=== PATIENT | female | born 1960 | race Caucasian/White ===

== ENCOUNTER → 2019-12-21 13:34 | Outpatient (BNVA) | payer MEDICAID, SELFPAY | PROVIDERS: PCP Internal Medicine; Referring Provider Internal Medicine; Visit Provider Physician Assistant | DX: E66.9 Obesity, unspecified (principal); Z98.84 Bariatric surgery status | CPT/HCPCS: 99212 ==

== ENCOUNTER 2019-12-30 10:05 | Outpatient (REF) | payer MEDICAID, SELFPAY ==
--- NOTE | 2019-12-30 10:11 | MM_ITS ---
EXAMINATION: MM SCREENING DIGITAL BREAST TOMOSYNTHESIS, BILATERAL CLINICAL INFORMATION: Screening. Asymptomatic. The lifetime risk of breast cancer based on the Tyrer-Cuzick Model is 5.3%. COMPARISON: Mammography: November 29, 2018 and studies dating back to January 01, 2011 TECHNIQUE: Digital breast tomosynthesis is performed in both the craniocaudal and mediolateral oblique views along with computer-aided detection (CAD). Synthesized 2D images are generated from the tomosynthesis. FINDINGS: There are scattered areas of fibroglandular density (ACR BI-RADS breast composition Category b). There are no significant masses, abnormal calcifications, or other abnormalities. MM/MM tomosynthesis screening BI IMPRESSION: There are no significant changes from prior study. ASSESSMENT: BI-RADS 1: Negative RECOMMENDATION: Routine annual mammography screening. This patient's information was entered into a reminder system with a target due date for their next mammogram.
== END 2019-12-30 10:06 | disposition home or self-care (01) ==
LOC: HO.MAMMO 10:05
PROVIDERS: Visit Provider Internal Medicine
DX: Z12.31 Encounter for screening mammogram for malignant neoplasm of breast (principal)
CPT/HCPCS: 77063; 77067

== ENCOUNTER → 2020-01-04 11:08 | Outpatient (BNVA) | payer MEDICAID, SELFPAY | PROVIDERS: PCP Internal Medicine; Visit Provider Physician Assistant | DX: E66.9 Obesity, unspecified (principal); Z68.35 Body mass index [BMI] 35.0-35.9, adult; Z98.84 Bariatric surgery status | CPT/HCPCS: 99212 ==

== ENCOUNTER → 2020-02-08 08:29 | Outpatient (BNVA) | payer MEDICAID, SELFPAY | PROVIDERS: PCP Internal Medicine; Visit Provider Physician Assistant | DX: Z76.89 Persons encountering health services in other specified circumstances (principal) ==

== ENCOUNTER → 2020-02-23 09:28 | Outpatient (BNVA) | payer MEDICAID, SELFPAY | PROVIDERS: PCP Internal Medicine; Visit Provider Physician Assistant | DX: Z76.89 Persons encountering health services in other specified circumstances (principal) ==

== ENCOUNTER → 2020-02-27 13:04 | Outpatient (BNVA) | payer MEDICAID, SELFPAY | PROVIDERS: PCP Internal Medicine; Visit Provider Physician Assistant | DX: Z76.89 Persons encountering health services in other specified circumstances (principal) ==

== ENCOUNTER 2020-03-01 09:42 | Outpatient (REF) | payer MEDICAID, SELFPAY | END 2020-03-01 09:43 | disposition home or self-care (01) | LOC: HO.LAB 09:42 | PROVIDERS: PCP Internal Medicine; Visit Provider Internal Medicine | DX: Z20.828 Contact with and (suspected) exposure to other viral communicable diseases (principal) | CPT/HCPCS: C9803; U0003 ==

== ENCOUNTER → 2020-03-16 08:22 | Outpatient (BNVA) | payer MEDICAID, SELFPAY | PROVIDERS: PCP Internal Medicine; Visit Provider Dietitian, Registered | DX: Z76.89 Persons encountering health services in other specified circumstances (principal) ==

== ENCOUNTER → 2020-03-29 10:30 | Outpatient (BNVA) | payer MEDICAID, SELFPAY | PROVIDERS: PCP Internal Medicine; Visit Provider Physician Assistant ==

== ENCOUNTER → 2020-03-30 08:49 | Outpatient (BNVA) | payer MEDICAID, SELFPAY | PROVIDERS: PCP Internal Medicine; Visit Provider Physician Assistant ==

== ENCOUNTER 2020-04-30 13:40 | Emergency (ER) | payer MEDICAID, SELFPAY ==
[2020-04-30 13:53] VITALS: BP 153/63; PULSE 71; RESP 20; TEMP 37; O2SAT 98; BMI 35.4
[2020-04-30 19:47] VITALS: BP 151/60; PULSE 83; RESP 16; TEMP 37.1; O2SAT 99
[2020-04-30 20:00] LABS: MANUAL DIFF FLAG NO
[2020-04-30 20:04] LABS: Basophils Percent Auto 0.3 % (0-2); Eosinophils Percent Auto 0.3 % (0-4); Hematocrit 42.1 % (37-47); Hemoglobin 14.4 g/dl (12.0-16.0); Imm Gran Abs Auto 0.02 X10*3/uL (0.00-0.03); Imm Gran Pct Auto 0.2 % (0.0-0.4); Lymphocytes Absolute Auto 3.4 X10*3/uL (1.2-4.9); Lymphocytes Percent Auto 34.2 % (20-40); Mean Corpuscular HGB Conc 34.2 g/dl (31.0-35.0); Mean Corpuscular Hemoglobin 30.7 pg (27.0-33.0); Mean Corpuscular Volume 89.8 fL (80-98); Mean Platelet Volume 11.7 fL (9.4-12.3); Monocytes Absolute Auto 0.7 X10*3/uL (0.1-1.2); Monocytes Percent Auto 6.5 % (2-11); Neutrophils Absolute Auto 5.8 X10*3/uL (2.0-8.3); Neutrophils Percent Auto 58.5 % (45-73); Platelet Count 270 X10*3/uL (160-400); Red Blood Count 4.69 X10*6/uL (4.20-5.50); White Blood Count 9.9 X10*3/uL (4.8-10.8)
[2020-04-30 20:27] LABS: Anion Gap 15 (12-20); Blood Urea Nitrogen 12 mg/dL (9-16); Calcium 9.5 mg/dL (8.4-10.2); Carbon Dioxide 27 mmol/L (22-29); Chloride 105 mmol/L (96-108); Creatinine Clr Calc Pharmacy 83.1; Estimated Glomerular Filt Rate > 60; Glucose Random 139 mg/dL (60-115); Potassium 4.7 mmol/L (3.3-5.1); Sodium 142 mmol/L (135-145)
[2020-04-30 21:34] VITALS: BP 136/60; PULSE 76; RESP 18; TEMP 36.8; O2SAT 97
--- NOTE | 2020-04-30 21:37 | ED.GENADULT ---
HPI - General Adult General Chief complaint: General Medical Stated complaint: can hear heart beating in left ear Source: patient Mode of arrival: ambulatory Limitations: language barrier History of Present Illness HPI narrative: 60-year-old female with past medical history of diabetes, hypertension, hyperlipidemia, obesity, hypothyroidism, status post gastric sleeve presents with complaint of hearing her heartbeat inside of her ear after walking up the stairs. She does report bilateral ear pain and itching for the past few days. She does not report any other abnormalities to her hearing, denies fevers, chills, lightheadedness, dizziness, loss of balance, chest pain or pressure, palpitations, shortness breath, abdominal pain, abdominal distention, dysuria, hematuria, and edema. Onset (ago): day(s) Location: head Radiation: non-radiation Severity: mild Pain Consistency: intermittent and now resolved Exacerbating factors: other (Exertion) Associated symptoms: denies other symptoms Treatments prior to arrival: none Related Data Home Medications Medication Instructions Recorded Confirmed cetirizine 10 mg capsule 10 mg PO DAILY 12/21/19 03/30/20 ferrous fumarate 324 mg (106 mg 324 mg PO DAILY 12/21/19 03/30/20 iron) tablet fluoxetine 20 mg capsule 20 mg PO DAILY 12/21/19 03/30/20 insulin glargine 100 unit/mL (3 20 unit SUBCUT QAM 12/21/19 03/30/20 mL) subcutaneous pen levothyroxine 25 mcg tablet 25 mcg PO DAILY 12/21/19 03/30/20 metformin 1,000 mg tablet 1,000 mg PO BID 12/21/19 03/30/20 metoprolol succinate 50 mg 50 mg PO DAILY 12/21/19 03/30/20 tablet,extended release 24 hr pantoprazole 40 mg tablet,delayed 40 mg PO DAILY 12/21/19 03/30/20 release tramadol 50 mg tablet 50 mg PO BID PRN 12/21/19 03/30/20 vitamin A palmitate 10,000 unit 10,000 unit PO DAILY 12/21/19 03/30/20 tablet Previous Rx's Medication Instructions Recorded clotrimazole 1 % topical cream 1 applic TOPICAL BID #28.4 g 01/04/20 clotrimazole 1 % topical cream 1 appl TOPICAL BID #28.4 g 02/23/20 atorvastatin 40 mg tablet 40 mg PO DAILY #30 tab 01/19/21 amoxicillin-pot clavulanate 1 tab PO Q12H 10 Days #20 tab 04/30/20 [Augmentin] Allergies Allergy/AdvReac Type Severity Reaction Status Date / Time glipizide [GLIPIZIDE] Allergy Unknown HIVES Verified 04/30/20 14:05 lisinopril Allergy Unknown hives Verified 04/30/20 14:05 Review of Systems Review of Systems: Constitutional: No Fever, No Chills ENT/Mouth: Positive Ear Pain, No Hoarseness, No sore throat Eyes: No Eye Pain, No Swelling, No Redness, No Foreign Body Cardiovascular: No Chest Pain, No SOB Respiratory: No Cough, No Dyspnea Gastrointestinal: No Nausea, No Vomiting, No Diarrhea, No abdominal Pain Genitourinary: No Dysuria, No Hematuria Musculoskeletal: No joint pain, No Myalgias, No Joint Swelling Skin: No Skin lacerations, No rash Neuro: No Weakness, No Numbness, No Paresthesias, No Loss of Consciousness, No Dizziness, No Headache Psych: No Anxiety/Panic, No Depression Heme/Lymph: no easy bruising, no Lymphadenopathy Endocrine: No Polyuria, No Polydipsia Yes all other systems are reviewed and are negative PMFSH Past Medical History Attestation statement: The following information was validated with the patient. Source: old records reviewed Medical History Atrial fib/flutter, transient Depression GERD (gastroesophageal reflux disease) Hyperlipidemia Hypertension Obesity Panniculitis Tongue disorder Tubal ligation evaluation Type II dens fracture of second cervical vertebra Surgical History History of carpal tunnel surgery Previous section S/P laparoscopic sleeve gastrectomy Family History Family History Mother No problems noted. Father No problems noted. Social History Social History Alcohol intake: never Smoking Status: Never smoker Smoked in Last 30 Days: No Use of substances other than those prescribed or required for medical reasons: No Advance Directives: No Advance Directives Information Provided: Yes Physical Exam Vital Signs: Vital Signs: Last Vital Signs Temp 98.3 F 04/30/20 21:34 Pulse 76 04/30/20 21:34 Resp 18 04/30/20 21:34 BP 136/60 04/30/20 21:34 Pulse Ox 97 04/30/20 21:34 Body Mass Index 35.4 Course Course Course Narrative: 60-year-old female with past medical history of AFib, hyperlipidemia, hypertension, status post gastric sleeve, presents with a strange sound her ear after walking stairs and bilateral ear itching and pain. Tympanic membranes bilaterally are erythematous, effusion to the right, no perforation, cone of light and a bow visualized. No mastoid tenderness, Centor scale 0. Plan of care is to treat for otitis media. Patient does not have any known allergies. director of research center utilized for all cores. Google translate utilized for discharge instructions. Patient verbalized understanding of and agrees to plan of care discharge home. Medical Decision Making Differential Diagnosis Differential Diagnosis: Otitis media, otitis externa, eustachian tube dysfunction Medical Records Medical records reviewed: Yes I reviewed the patient's medical records. Lab Data Lab results reviewed: Yes I reviewed the patient's lab results. Result diagrams: 04/30/20 19:53 04/30/20 19:53 Labs: Lab Results 04/30/20 04/30/20 Range/Units 19:53 19:53 WBC 9.9 (4.8-10.8) X10*3/uL RBC 4.69 (4.20-5.50) X10*6/uL Hgb 14.4 (12.0-16.0) g/dl Hct 42.1 (37-47) % MCV 89.8 (80-98) fL MCH 30.7 (27.0-33.0) pg MCHC 34.2 (31.0-35.0) g/dl RDW 13.0 (11.0-16.0) % Plt Count 270 (160-400) X10*3/uL MPV 11.7 (9.4-12.3) fL Immature Gran % (Auto) 0.2 (0.0-0.4) % Neut % (Auto) 58.5 (45-73) % Lymph % (Auto) 34.2 (20-40) % [place] % (Auto) 6.5 (2-11) % Eos % (Auto) 0.3 (0-4) % Baso % (Auto) 0.3 (0-2) % Lymph # (Auto) 3.4 (1.2-4.9) X10*3/uL [place] # (Auto) 0.7 (0.1-1.2) X10*3/uL Eos # (Auto) 0.0 (0.0-0.4) X10*3/uL Baso # (Auto) 0.0 (0.0-0.2) X10*3/uL Abs Immat Gran (auto) 0.02 (0.00-0.03) X10*3/uL Absolute Neuts (auto) 5.8 (2.0-8.3) X10*3/uL Absolute Nucleated RBC 0.000 (0.0-0.012) X10*3/uL Nucleated RBC % (auto) 0.0 (0.0-0.2) /100WBC Sodium 142 (135-145) mmol/L Potassium 4.7 (3.3-5.1) mmol/L Chloride 105 (96-108) mmol/L Carbon Dioxide 27 (22-29) mmol/L Anion Gap 15 (12-20) BUN 12 (9-16) mg/dL Creatinine 0.75 (0.5-1.4) mg/dL Estim Creat Clear Calc 83.1 Estimated GFR > 60 Random Glucose 139 H (60-115) mg/dL Calcium 9.5 (8.4-10.2) mg/dL Discharge Plan Discharge Clinical Impression: Otitis media Qualifiers: Otitis media type: suppurative Chronicity: acute Laterality: bilateral Recurrence: non-recurrent Spontaneous tympanic membrane rupture: without spontaneous rupture Qualified Code(s): H66.003 - Acute suppurative otitis media without spontaneous rupture of ear drum, bilateral Patient Disposition: Home, Self-Care Instructions: Ear Infection (ED) Additional Instructions: Te evaluaron para detectar sonidos anormales en el canal auditivo. La inspecci?n indica otitis media, no infecci?n del o?do interno. Por favor tome Augmentin 875 mg dos veces al d?a angel 10 d?as seg?n las instrucciones. Se le evaluaron para detectar s?ntomas consistentes con la exposici?n positiva a COVID-19 o COVID-19. Por favor, mantenga el aislamiento social seg?n las directrices estatales y federales. Es bagley responsabilidad mantener estas directrices. Los resultados de las pruebas est?n pendientes. Le llamaremos con los resultados. Usted debe tratarse a s? mismo chely si fuera positivo hasta que los resultados de la prueba vuelvan. Jahaira por elegir quita departamento de emergencias para bagley evaluaci?n. Por favor, juli un seguimiento con el m?dico de atenci?n primaria seg?n sea necesario. Regrese al servicio de emergencias para cualquier s?ntoma nuevo, preocupante o que empeore. You were evaluated for abnormal sounds in the ear canal. Inspection indicates otitis media, an inner ear infection. Please take Augmentin 875 mg twice a day for 10 days as directed. You were evaluated for symptoms consistent with COVID-19 and or COVID-19 positive exposure. Please maintain social isolation per State and Federal guidelines. Is your responsibility to maintain these guidelines. Your test results are pending. We will call you with the results. You must treat yourself as if you are positive until your test results come back. Thank you for choosing this emergency department for evaluation. Please follow-up with primary care physician as needed. Return to the emergency department for any new, concerning, or worsening symptoms. Prescriptions: New amoxicillin-pot clavulanate [Augmentin] 875-125 mg tablet 1 tab PO Q12H 10 Days Qty: 20 RF: 0 No Action atorvastatin 40 mg tablet 40 mg PO DAILY Qty: 30 RF: 5 metoprolol succinate [Toprol XL] 50 mg tablet extended release 24 hr 50 mg PO DAILY RF: 0 tramadol 50 mg tablet 50 mg PO BID PRNRF: 0 Zyrtec 10 mg capsule 10 mg PO DAILY RF: 0 Lantus Solostar U-100 Insulin 100 unit/mL (3 mL) insulin pen 20 unit subcut QAM RF: 0 fluoxetine 20 mg capsule 20 mg PO DAILY RF: 0 pantoprazole 40 mg tablet,delayed release (DR/EC) 40 mg PO DAILY RF: 0 metformin 1,000 mg tablet 1,000 mg PO BID RF: 0 ferrous fumarate [Ferrocite] 324 mg (106 mg iron) tablet 324 mg PO DAILY RF: 0 vitamin A palmitate 10,000 unit tablet 10,000 unit PO DAILY RF: 0 levothyroxine 25 mcg tablet 25 mcg PO DAILY RF: 0 clotrimazole 1 % cream 1 applic topical BID Qty: 28.4 RF: 6 clotrimazole 1 % cream 1 appl topical BID Qty: 28.4 RF: 6
[2020-04-30] MEDS: Amoxicillin/Potassium Clav 875 MG TABLET PO (22:48)
--- NOTE | 2020-04-30 22:48 | PC.NURSE ---
covid swab performed, pt medicated per order
[2020-04-30 23:07] LABS: COVID-19 Test Negative (Negative); IDNOW Serial# 9DD0AD1C
== END 2020-04-30 23:21 | disposition home or self-care (01) ==
PROVIDERS: Nurse Practitioner Family; Emergency Provider Emergency Medicine; PCP Internal Medicine
DX: H66.003 Acute suppurative otitis media without spontaneous rupture of ear drum, bilateral (principal); Z20.822 Contact with and (suspected) exposure to COVID-19; I10 Essential (primary) hypertension; E11.9 Type 2 diabetes mellitus without complications; I48.91 Unspecified atrial fibrillation; E78.5 Hyperlipidemia, unspecified; Z98.84 Bariatric surgery status; Z79.4 Long term (current) use of insulin; Z79.899 Other long term (current) drug therapy
CPT/HCPCS: 36415; 80048; 85025; 87635; 99283; 99284

== ENCOUNTER → 2020-05-24 09:28 | Outpatient (BNVA) | payer MEDICAID, SELFPAY | PROVIDERS: PCP Internal Medicine; Visit Provider Physician Assistant ==

== ENCOUNTER → 2020-05-25 08:13 | Outpatient (BNVA) | payer MEDICAID, SELFPAY | PROVIDERS: PCP Internal Medicine; Visit Provider Physician Assistant ==

== ENCOUNTER → 2020-07-13 15:30 | Outpatient (BNVA) | payer MEDICAID, SELFPAY | PROVIDERS: PCP Internal Medicine; Referring Provider Internal Medicine; Visit Provider Physician Assistant | DX: E66.9 Obesity, unspecified (principal); Z68.35 Body mass index [BMI] 35.0-35.9, adult; Z98.84 Bariatric surgery status | CPT/HCPCS: 99212 ==

== ENCOUNTER 2020-08-28 13:41 | Outpatient (REF) | payer MEDICAID, SELFPAY | END 2020-08-28 13:42 | disposition home or self-care (01) | LOC: HO.LAB 13:41 | PROVIDERS: PCP Internal Medicine; Visit Provider Internal Medicine | DX: Z20.822 Contact with and (suspected) exposure to COVID-19 (principal) | CPT/HCPCS: C9803; U0003; U0005 ==

== ENCOUNTER → 2020-09-28 09:26 | Outpatient (BNVA) | payer MEDICAID, SELFPAY | PROVIDERS: PCP Internal Medicine; Referring Provider Internal Medicine; Visit Provider Physician Assistant | DX: E66.9 Obesity, unspecified (principal); Z68.35 Body mass index [BMI] 35.0-35.9, adult; Z98.84 Bariatric surgery status | CPT/HCPCS: 99212 ==

== ENCOUNTER 2020-10-01 07:14 | Outpatient (REF) | payer MEDICAID, SELFPAY ==
[2020-10-01 08:19] LABS: Estimated Average Glucose 186 mg/dL; Hemoglobin A1c % 8.1 %
[2020-10-01 08:28] LABS: Alanine Aminotransferase 19 U/L (0-31); Albumin Level 3.9 g/dL (3.5-5.0); Alkaline Phosphatase 74 U/L (39-117); Anion Gap 10 (12-20); Aspartate Amino Transferase 18 U/L (5-31); Bilirubin Total 0.4 mg/dL (0.0-1.0); Blood Urea Nitrogen 11 mg/dL (9-16); C Reactive Protein 0.52 mg/dL (< or = 0.50); Calcium 9.2 mg/dL (8.4-10.2); Carbon Dioxide 30 mmol/L (22-29); Chloride 107 mmol/L (96-108); Cholesterol 129 mg/dL; Estimated Glomerular Filt Rate > 60; Glucose Random 167 mg/dL (60-115); HDL Cholesterol 40 mg/dL; Iron 69 mcg/dL (30-160); LDL Cholesterol Calculated 75 mg/dl; Percent Iron Saturation 22 % (15-50); Potassium 4.6 mmol/L (3.3-5.1); Sodium 142 mmol/L (135-145); Total Iron Binding Capacity 317 mcg/dL (228-428); Total Protein 6.6 g/dL (6.5-8.0); Triglycerides 74 mg/dL; Unsaturated Iron Binding 248 ug/dL
[2020-10-01 08:54] LABS: Ferritin 36 ng/mL (10-250); TSH reflex Free T4 1.52 uIU/mL (0.32-4.0)
[2020-10-01 09:05] LABS: Folate 16.1 ng/mL (> or = 4.0); Vitamin B12 240 pg/mL (200-900)
[2020-10-02 13:31] LABS: Calcium (PTHI) 9.3 mg/dL (8.6-10.4); PTHI 43 pg/mL (14-64)
[2020-10-02 17:12] LABS: Insulin Level Total 22.8 uIU/mL
[2020-10-04 17:27] LABS: Zinc 81 mcg/dL (60-130)
[2020-10-05 00:32] LABS: Vitamin A 39 mcg/dL (38-98)
[2020-10-05 06:22] LABS: Vitamin B1 9 nmol/L (8-30)
== END 2020-10-01 07:15 | disposition home or self-care (01) ==
LOC: HO.LAB 07:14
PROVIDERS: PCP Internal Medicine; Visit Provider Physician Assistant
DX: E66.9 Obesity, unspecified (principal); Z68.35 Body mass index [BMI] 35.0-35.9, adult; Z98.84 Bariatric surgery status
CPT/HCPCS: 36415; 80053; 80061; 82306; 82607; 82728; 82746; 83036; 83525; 83540; 83970; 84425; 84443; 84590; 84630; 86140

== ENCOUNTER → 2021-01-11 14:28 | Outpatient (BNVA) | payer MEDICAID, SELFPAY | PROVIDERS: PCP Internal Medicine; Visit Provider Physician Assistant Surgical | DX: E66.9 Obesity, unspecified (principal); Z68.35 Body mass index [BMI] 35.0-35.9, adult; Z98.84 Bariatric surgery status ==

== ENCOUNTER 2021-01-21 12:05 | Outpatient (REF) | payer MEDICAID, SELFPAY ==
--- NOTE | ~2021-01-21 | MM_ITS ---
EXAMINATION: MM SCREENING DIGITAL BREAST TOMOSYNTHESIS, BILATERAL CLINICAL INFORMATION: Screening. Asymptomatic. The lifetime risk of breast cancer based on the Tyrer-Cuzick Model is 5%. COMPARISON: Mammography: 12/30/2019, 11/29/2018, 10/17/2016 TECHNIQUE: Digital breast tomosynthesis is performed in both the craniocaudal and mediolateral oblique views along with computer-aided detection (CAD). Synthesized 2D images are generated from the tomosynthesis. Additional right MLO view is provided. FINDINGS: There are scattered areas of fibroglandular density (ACR BI-RADS breast composition Category b). There are no significant masses, abnormal calcifications, or other abnormalities. Low left axillary tail nodes stable. There are scattered bilateral fine punctate round and some vascular calcifications again seen central anterior breasts, more numerous on right. No significant changes. MM/MM tomosynthesis screening BI IMPRESSION: No significant changes from prior exams. ASSESSMENT: BI-RADS 2: Benign RECOMMENDATION: Routine annual mammography screening. This patient's information was entered into a reminder system with a target due date for their next mammogram.
== END 2021-01-21 12:06 | disposition home or self-care (01) ==
LOC: HO.MAMMO 12:05
PROVIDERS: PCP Internal Medicine; Visit Provider Internal Medicine
DX: Z12.31 Encounter for screening mammogram for malignant neoplasm of breast (principal)
CPT/HCPCS: 77063; 77067

== ENCOUNTER → 2021-01-25 08:04 | Outpatient (BNVA) | payer MEDICAID, SELFPAY | PROVIDERS: PCP Internal Medicine; Visit Provider Physician Assistant Surgical | DX: E66.9 Obesity, unspecified (principal); Z68.35 Body mass index [BMI] 35.0-35.9, adult; Z98.84 Bariatric surgery status ==

== ENCOUNTER 2021-01-29 10:07 | Outpatient (REF) | payer MEDICAID, SELFPAY ==
--- NOTE | 2021-01-29 13:38 | MHC.AU.HAS ---
Hearing Aid Evaluation Date of Visit: 01/29/21 Oil Well Directional Surveyor Used: Mongolian- In Person Historical Information: Description of Hearing: Mild to moderate high-frequency sensorineural hearing loss bilaterally. Current personal amplification information, if applicable: Patient notes that she had BTE style hearing aids ~7 years ago Summary: Patient [facility] at [facility] and hearing aids were recommended to help facilitate improved communication. Medical clearance for hearing aid use was provided by Dr. Jovon Yepez. Discussed hearing aid styles and technologies with the patient. She is interested in rechargeable GISELA style hearing aids. Hearing Aid Prescription: Based on the individual?s shared listening needs, communication environments, dexterity, desire for connectivity, and personal preferences, the following prescription for amplification has been made: Right ear: Spa Receptionist: Phonak Model: Audeo P70-R Battery Size: Rechargeable Color: P8- Black [place]co Artist: Size 0 M Type of Dome: Open Left ear: Left ear prescription to be same as Right Hearing Aid above: Spa Receptionist: Phonak Model: Audeo P70-R Battery Size: Rechargeable Color: P8- Black [place] Artist: Size 0 M Type of Dome: Open Plan of Care: Hearing Instrument Fitting to be scheduled when materials arrive. Hearing aids ordered. Primary Diagnosis: H90.3 Bilateral Sensorineural Hearing Loss Signature: Provider: Terry Salomon, LUCIA-A
== END 2021-01-29 10:08 | disposition home or self-care (01) ==
LOC: HO.HAP 10:07
PROVIDERS: Visit Provider Internal Medicine
DX: Z46.1 Encounter for fitting and adjustment of hearing aid (principal); H90.3 Sensorineural hearing loss, bilateral
CPT/HCPCS: 92591

== ENCOUNTER 2021-02-04 07:08 | Outpatient (REF) | payer MEDICAID, SELFPAY ==
[2021-02-04 07:55] LABS: Iron 75 mcg/dL (30-160); Percent Iron Saturation 22 % (15-50); Total Iron Binding Capacity 335 mcg/dL (228-428); Unsaturated Iron Binding 260 ug/dL
[2021-02-04 08:16] LABS: Vitamin D 25-OH Total 27.2 ng/mL (>30)
[2021-02-04 08:56] LABS: Vitamin B12 349 pg/mL (200-900)
[2021-02-06 22:56] LABS: Zinc 87 mcg/dL (60-130)
[2021-02-08 01:36] LABS: Vitamin A 39 mcg/dL (38-98)
[2021-02-08 06:05] LABS: Vitamin B1 7 nmol/L (8-30)
== END 2021-02-04 07:09 | disposition home or self-care (01) ==
LOC: HO.LAB 07:08
PROVIDERS: PCP Internal Medicine; Visit Provider Physician Assistant Surgical
DX: K91.2 Postsurgical malabsorption, not elsewhere classified (principal); E66.9 Obesity, unspecified; Z68.35 Body mass index [BMI] 35.0-35.9, adult; Z90.3 Acquired absence of stomach [part of]; Z98.84 Bariatric surgery status
CPT/HCPCS: 36415; 82306; 82607; 82746; 83540; 84425; 84590; 84630

== ENCOUNTER 2021-02-26 10:10 | Outpatient (REF) | payer MEDICAID, SELFPAY | END 2021-02-26 10:11 | disposition home or self-care (01) | LOC: HO.HAP 10:10 | PROVIDERS: Visit Provider Internal Medicine | DX: Z46.1 Encounter for fitting and adjustment of hearing aid (principal); H90.3 Sensorineural hearing loss, bilateral | CPT/HCPCS: V5011; V5020; V5160; V5261 ==

== ENCOUNTER → 2021-03-29 09:13 | Outpatient (REF) | payer MEDICAID, SELFPAY ==
--- NOTE | 2021-03-29 09:40 | CA_ITS ---
Transthoracic Echocardiogram Patient (Last, First, Middle): Eunice Romano D Gender: Female Date of : 1960 Age: 61 Procedure Date: 03/29/2021 Procedure Type: Transthoracic Echocardiogram Location: OP Height: 154.94 cm Weight: 88. kg BSA: 1.86 m2 Heart Rate: bpm BP: 135 / 80 mmHg Millstone Cleaner: TYLER Esquivel MD: Garrick Cisneros MD Symptoms: I35.0 - Nonrheumatic aortic (valve) stenosis Study Quality: Fair Conclusions: - Normal left ventricular size and systolic function. - Spectral Doppler is indicative of a pseudonormal filling pattern. E/E prime ratio is >15, consistent with elevated filling pressures. - Normal right ventricular cavity size and systolic function. - There is mild aortic valve stenosis. Findings Left Ventricle Normal left ventricular size and systolic function. There is mildly increased left ventricular wall thickness. The visually estimated ejection fraction is between 55-60%. There is no evidence of regional wall motion abnormalities. Abnormal diastolic function is noted. Spectral Doppler is indicative of a pseudonormal filling pattern. E/E prime ratio is >15, consistent with elevated filling pressures. Right Ventricle Normal right ventricular cavity size and systolic function. Atria Both atria are normal in size. Aortic Valve There is a normal trileaflet aortic valve. There is mild calcification of the aortic valve. There is mild aortic valve stenosis. There is no aortic valve regurgitation. Mitral Valve Normal mitral valve structure and function. There is mild mitral annular calcification. There is trace mitral valve regurgitation. There is no mitral valve stenosis. Pulmonic Valve Normal pulmonic valve structure and function. There is no pulmonic valve regurgitation. Tricuspid Valve Normal tricuspid valve structure and function. There is trace tricuspid valve regurgitation. Normal right atrial pressure. There is no evidence of pulmonary hypertension. Great Vessels All visible segments of the aorta are normal in size. The visualized portions of the pulmonary artery and branches are normal. Venous The inferior vena cava is normal in size and collapses greater than 50% with inspiration. Pericardium/Pleural There is no evidence of pericardial effusion. Prior Study Comparison Changes noted compared to prior study dated: 03/11/2019. Elevated filling pressures. Measurements 2D Linear Measurements IVSd: 1.07 0.6-0.9/0.6-1.0 cm LVIDd: 4.66 3.9-5.3/4.2-5.9 cm LVIDd Index: 2.51 2.4-3.2/2.2-3.1 cm/m2 LVIDs: 3.07 2.0-3.6 cm LVPWd: 1.05 0.7-1.1 cm Ao Root: 2.60 2.1-3.5 cm LA Diam: 3.80 2.7-3.8/3.0-4.0 cm LAIDs Index: 2.04 1.5-2.3 cm/m2 LV Mass: 218.89 67-162/88-224 g LV Mass Index: 117.68 43-95/49-115 g/m2 LVOT Diam: 2.00 3.0+(-)1.3 cm 2D Systolic Function EF 4C: 60.60 >55% EF 2C: 56.40 >55% EF BiP: 58.90 >55% Mitral Valve MV Pk E: 1.07 MV PK A: 0.99 MV Decel Time: 222.00 E/A: 1.10 E'Lateral: 6.74 E'Medial: 6.96 E/E' Med: 15.40 E/E' Lat: 15.90 PHT: 65.00 MVA PHT: 3.38 Decel [place]: 4.82 Aortic Valve AoV Pk Bean: 2.20 AoV Mn Bean: 1.47 AoV VTI: 0.48 AoV Pk Grad: 19.00 Aov Mn Grad: 10.00 BETTYE Cont.VTI: 1.84 LVOT LVOT Pk Bean: 1.26 LVOT Mn Bean: 0.88 LVOT VTI: 0.28 LVOT Pk Grad: 6.00 LVOT Mn Grad: 3.00 LVOT Diam: 2.00 LVOT Area: 3.14 Diastolic Function MV Pk E: 1.07 MV Pk A: 0.99 E/A: 1.10 E'Medial: 6.96 E/E' Med: 15.40 E' Laterial: 6.74 E/E' Lat: 15.90 Right Ventricle TAPSE (mm): 2.48 TVS' Bean: 13.90 Tricuspid Valve TR Pk Bean: 2.24 TR Pk Grad: 20.00 RA Press: 3.00 RVSP: 23.00 Great Vessels Aorta Ao Root-2D: 2.60 2.0-3.7 cm Ao Asc: 3.10 2.1-3.4 cm Ao Arch: 2.90 Updated in Other Vendor System with Status of Final Aron Valles MD electronically signed on 03/31/2021 7:49:30 PM with status of Final
== END ==
LOC: HO.CARD 09:13
PROVIDERS: PCP Internal Medicine; Visit Provider Internal Medicine
DX: I35.0 Nonrheumatic aortic (valve) stenosis (principal)
CPT/HCPCS: 93306

== ENCOUNTER → 2021-04-09 12:34 | Outpatient (BNVA) | payer MEDICAID, SELFPAY | PROVIDERS: PCP Internal Medicine; Referring Provider Internal Medicine; Visit Provider Internal Medicine | DX: I48.0 Paroxysmal atrial fibrillation (principal); I35.0 Nonrheumatic aortic (valve) stenosis; I10 Essential (primary) hypertension; E66.01 Morbid (severe) obesity due to excess calories; E78.5 Hyperlipidemia, unspecified; E11.8 Type 2 diabetes mellitus with unspecified complications; Z68.37 Body mass index [BMI] 37.0-37.9, adult | CPT/HCPCS: 93005; 99212 ==

== ENCOUNTER 2021-04-26 08:48 | Outpatient (REF) | payer MEDICAID, SELFPAY ==
[2021-04-26 11:12] LABS: Iron 120 mcg/dL (30-160); Percent Iron Saturation 33 % (15-50); Total Iron Binding Capacity 364 mcg/dL (228-428); Unsaturated Iron Binding 244 ug/dL
[2021-04-26 11:34] LABS: Vitamin D 25-OH Total 35.4 ng/mL (>30)
[2021-04-26 11:41] LABS: Folate 10.7 ng/mL (> or = 4.0); Vitamin B12 487 pg/mL (200-900)
[2021-05-01 03:06] LABS: Zinc 67 mcg/dL (60-130)
[2021-05-02 13:26] LABS: Vitamin B1 138 nmol/L (8-30)
[2021-05-03 01:31] LABS: Vitamin A 45 mcg/dL (38-98)
== END 2021-04-26 08:49 | disposition home or self-care (01) ==
LOC: HO.LAB 08:48
PROVIDERS: PCP Internal Medicine; Referring Provider Internal Medicine; Visit Provider Physician Assistant Surgical
DX: E66.9 Obesity, unspecified (principal); Z68.37 Body mass index [BMI] 37.0-37.9, adult; Z98.84 Bariatric surgery status
CPT/HCPCS: 36415; 82306; 82607; 82746; 83540; 84425; 84590; 84630; 99212

== ENCOUNTER → 2021-07-02 09:31 | Outpatient (BNVA) | payer MEDICAID, SELFPAY | PROVIDERS: PCP Internal Medicine; Referring Provider Internal Medicine; Visit Provider Physician Assistant Surgical | DX: E66.9 Obesity, unspecified (principal); Z98.84 Bariatric surgery status; Z68.37 Body mass index [BMI] 37.0-37.9, adult | CPT/HCPCS: 99212 ==

== ENCOUNTER 2021-09-09 04:12 | Emergency (ER) | payer MEDICAID, SELFPAY ==
[2021-09-09 04:16] VITALS: BP 111/66; PULSE 60; RESP 18; TEMP 36.5; O2SAT 98; BMI 37.8
--- NOTE | 2021-09-09 07:23 | ED.GENADULT ---
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 The patient states she went to bed around 21:00 hours was having difficulty sleeping. She states she rolled over and blood 08:00 hours and had a sudden onset of dizziness. She describes this as a room spinning sensation. She has associated nausea. She states that lasted approximately 2-3 minutes. The patient then took her blood pressure and it was high. She also states she developed a headache which she states is located diffusely throughout her head, was a constant, throbbing sensation and was mild in intensity. The headache is since resolved and the dizziness is also resolved. Patient states she had an episode of feeling very cold but she attributes this to the air-conditioning that was on. She denied fever, chills, rhinorrhea, sore throat, cough, chest pain, shortness of breath, abdominal pain, frequency, urgency, dysuria, change in her stool. She states that she has had similar episodes of vertigo in the past but has never been treated for it. States she has been seen in the emergency department for dizziness and past as well. MD complaint: Headache Onset (ago): hour(s) (4) Location: head Radiation: non-radiation Severity: mild Severity scale (1-10): 2 Quality: other (Throbbing) Pain Consistency: constant Relieving factors: other (Resolved without treatment) Exacerbating factors: none Associated symptoms: other (Vertigo, hypertension) Treatments prior to arrival: none Related Data Home Medications Medication Instructions Recorded Confirmed cetirizine 10 mg capsule (Zyrtec) 10 mg PO DAILY 12/21/19 07/02/21 fluoxetine 20 mg capsule 20 mg PO DAILY 12/21/19 07/02/21 insulin glargine 100 unit/mL (3 20 unit subcut QAM 12/21/19 07/02/21 mL) subcutaneous pen (Lantus Solostar U-100 Insulin) metformin 1,000 mg tablet 1,000 mg PO BID 12/21/19 07/02/21 metoprolol succinate 50 mg 50 mg PO DAILY 12/21/19 07/02/21 tablet,extended release 24 hr (Toprol XL) tramadol 50 mg tablet 50 mg PO BID PRN 12/21/19 07/02/21 losartan 50 mg tablet 50 mg PO QAM 04/09/21 07/02/21 Previous Rx's Medication Instructions Recorded atorvastatin 40 mg tablet 40 mg PO DAILY 90 days #90 tabs 09/17/20 cyanocobalamin (vitamin B-12) 500 500 mcg PO DAILY #30 tabs 05/24/21 mcg tablet levothyroxine 25 mcg tablet 25 mcg PO DAILY #30 tabs 05/24/21 clotrimazole 1 % topical cream 1 appl topical BID #28.4 grams 07/02/21 ferrous fumarate 324 mg (106 mg 324 mg PO DAILY #90 tabs 08/07/21 iron) tablet (Ferrocite) meclizine 25 mg tablet (Dramamine 25 mg PO TID PRN dizziness #20 tabs 09/09/21 Less Drowsy) Allergies Allergy/AdvReac Type Severity Reaction Status Date / Time glipizide [GLIPIZIDE] Allergy Unknown HIVES Verified 07/02/21 09:38 lisinopril Allergy Unknown hives Verified 07/02/21 09:38 Review of Systems Review of Systems: Yes all other systems are reviewed and are negative [facility] Past Medical History [facility] Narrative: Social history: She denies tobacco, alcohol and drug use. Medical History Atrial fib/flutter, transient Depression GERD (gastroesophageal reflux disease) Hyperlipidemia Hypertension Obesity Panniculitis Tongue disorder Tubal ligation evaluation Type II dens fracture of second cervical vertebra Surgical History History of carpal tunnel surgery Hx of oral surgery Previous section S/P laparoscopic sleeve gastrectomy Family History Family History Mother No problems noted. Father No problems noted. Social History Social History Alcohol intake: never Patient Tobacco Use Status: Former Tobacco user Advance Directives: No Advance Directives Information Provided: Yes Physical Exam ED Vital Signs: Vital Signs - 24 hr 09/09/21 04:16 Temperature 97.7 F Pulse Rate 60 Respiratory Rate 18 Blood Pressure 111/66 Pulse Oximetry 98 Oxygen Delivery Method Room Air BMI result Body Mass Index 37.8 Const General: cooperative and no acute distress Orientation/consciousness: oriented to person and oriented to place Limitations: no limitations HENMT Head: Yes normal to inspection, Yes normocephalic and Yes atraumatic Ears: external ears normal General nose exam: Normal external nose present Face and sinus: Yes normal facial exam Mouth: Normal oral and palatal mucosa present Throat: Yes posterior oropharynx normal Eyes General: appearance normal, both eyes and all related structures Pupils: Equal, round and reactive pupils present Neck Neck: Yes normal visual inspection, Yes no lymphadenopathy, Yes trachea midline and Yes supple Chest Chest palpation & inspection: normal inspection of the chest and normal palpation of entire chest wall Resp Effort & Inspection: normal respiratory effort and able to speak in complete sentences Auscultation: clear to auscultation bilaterally Cardio Rate: regular rate Rhythm: regular rhythm Heart sounds: S1 normal heart sound present, S2 normal heart sound present and no murmurs GI Inspection: Yes normal to inspection Palpation (GI): Soft to palpation, nontender and no guarding Auscultation: normal bowel sounds General: Yes no CVA tenderness Back/Spine/Pelvis Back: no CVA tenderness Skin General skin exam: no rashes or lesions noted Neuro General: oriented to person and oriented to place Cranial nerves: Yes CN's II-XII intact bilaterally and Yes Equal, round and reactive pupils present Cognition (Neuro): normal cognition Motor exam (neuro): 5/5 motor strength present throughout Coordination: [id number] test normal and tandem gait normal Extrem General: Yes normal to inspection Psych Appearance: grossly normal Speech and movement: Normal speech and movement present Affect: normal affect Attitude: cooperative Thought process: Normal thought process present Thought content: Normal thought content present Course Course Course Narrative: 61-year-old female who presents emergency department for evaluation of sudden onset of vertigo like symptoms at 04:00 hours which lasted minutes and have resolved. The patient did have elevated blood pressure readings at home but here in the emergency department blood pressure was normal. Patient also had a headache which was mild associated with vertigo which is also resolved without treatment. Patient has had similar episodes of vertigo in the past. On her examination her vital signs were normal including her blood pressure. She currently has no nystagmus and has no cerebellar signs. Patient's presentation is consistent with vertigo and I did discuss this with her. Patient was started on meclizine 25 mg 3 times a day as needed for dizziness. She was given printed and verbal instructions and discharged home. Discharge Plan Discharge Clinical Impression: Vertigo, Essential hypertension Patient Disposition: Home, Self-Care Instructions: Vertigo (ED) Additional Instructions: Your symptoms are consistent with vertigo caused by the balance mechanism in your inner ear. At this time I do not think that she had a stroke, heart attack or that your symptoms are related to your high blood pressure. Take meclizine 25 mg pills, 1 pill 3 times a day for the next 3 days for dizziness then as needed for dizziness. This medication will make you sleepy. Do not drive or work while taking this medication. Follow-up with your doctor in 2 days. Please return to the emergency department if your symptoms get worse or if you develop any symptoms that are concerning to you. Prescriptions: New meclizine [Dramamine Less Drowsy] 25 mg tablet 25 mg PO TID PRN (Reason: dizziness) Qty: 20 0RF No Action atorvastatin 40 mg tablet 40 mg PO DAILY 90 Days Qty: 90 3RF levothyroxine 25 mcg tablet 25 mcg PO DAILY Qty: 30 1RF cyanocobalamin (vitamin B-12) 500 mcg tablet 500 mcg PO DAILY Qty: 30 11RF ferrous fumarate [Ferrocite] 324 mg (106 mg iron) tablet 324 mg PO DAILY Qty: 90 3RF metoprolol succinate [Toprol XL] 50 mg tablet extended release 24 hr 50 mg PO DAILY tramadol 50 mg tablet 50 mg PO BID PRN Zyrtec 10 mg capsule 10 mg PO DAILY Lantus Solostar U-100 Insulin 100 unit/mL (3 mL) insulin pen 20 unit subcut QAM fluoxetine 20 mg capsule 20 mg PO DAILY metformin 1,000 mg tablet 1,000 mg PO BID clotrimazole 1 % cream 1 appl topical BID Qty: 28.4 6RF losartan 50 mg tablet 50 mg PO QAM
== END 2021-09-09 08:22 | disposition home or self-care (01) ==
PROVIDERS: Emergency Provider Emergency Medicine Emergency Medical Services
DX: R42 Dizziness and giddiness (principal); I10 Essential (primary) hypertension; R51.9 Headache, unspecified
CPT/HCPCS: 99283

== ENCOUNTER 2022-01-01 09:37 | Outpatient (REF) | payer MEDICAID, SELFPAY ==
[2022-01-01 10:47] LABS: MANUAL DIFF FLAG NO
[2022-01-01 11:47] LABS: Basophils Percent Auto 0.4 % (0-2); Eosinophils Absolute Auto 0.1 X10*3/uL (0.0-0.4); Eosinophils Percent Auto 0.8 % (0-4); Hematocrit 41.2 % (37.0-47.0); Hemoglobin 13.8 g/dl (12.0-16.0); Imm Gran Abs Auto 0.05 X10*3/uL (0.00-0.03); Imm Gran Pct Auto 0.5 % (0.0-0.4); Lymphocytes Absolute Auto 3.9 X10*3/uL (1.2-4.9); Lymphocytes Percent Auto 35.8 % (20-40); Mean Corpuscular HGB Conc 33.5 g/dl (31.0-35.0); Mean Corpuscular Volume 89.6 fL (80.0-98.0); Mean Platelet Volume 12.8 fL (9.4-12.3); Monocytes Absolute Auto 0.8 X10*3/uL (0.1-1.2); Monocytes Percent Auto 7.4 % (2-11); Neutrophils Percent Auto 55.1 % (45-73); Platelet Count 274 X10*3/uL (160-400); Red Cell Distribution Width 13.4 % (11.0-16.0); White Blood Count 10.8 X10*3/uL (4.8-10.8)
[2022-01-01 12:06] LABS: Estimated Average Glucose 217 mg/dL; Hemoglobin A1c % 9.2 %
[2022-01-01 12:08] LABS: Alanine Aminotransferase 34 U/L (0-31); Albumin Level 4.2 g/dL (3.5-5.0); Alkaline Phosphatase 77 U/L (39-117); Anion Gap 17 (12-20); Aspartate Amino Transferase 20 U/L (5-31); Bilirubin Total 0.6 mg/dL (0.0-1.0); Blood Urea Nitrogen 15 mg/dL (9-16); C Reactive Protein 0.78 mg/dL (< or = 0.50); Carbon Dioxide 28 mmol/L (22-29); Chloride 101 mmol/L (96-108); Cholesterol 143 mg/dL; Estimated Glomerular Filt Rate > 60; Glucose Random 137 mg/dL (60-115); HDL Cholesterol 44 mg/dL; Iron 100 mcg/dL (30-160); LDL Cholesterol Calculated 83 mg/dl; Percent Iron Saturation 30 % (15-50); Potassium 4.2 mmol/L (3.3-5.1); Sodium 142 mmol/L (135-145); Total Iron Binding Capacity 331 mcg/dL (228-428); Total Protein 7.1 g/dL (6.5-8.0); Triglycerides 81 mg/dL; Unsaturated Iron Binding 231 ug/dL
[2022-01-01 12:34] LABS: Ferritin 40 ng/mL (10-250); TSH reflex Free T4 2.18 uIU/mL (0.32-4.0); Vitamin D 25-OH Total 29.2 ng/mL (>30)
[2022-01-01 13:01] LABS: Folate 9.5 ng/mL (> or = 4.0); Vitamin B12 448 pg/mL (200-900)
[2022-01-01 13:09] LABS: Insulin 45 uU/mL (2-29)
[2022-01-02 14:27] LABS: Calcium (PTHI) 9.9 mg/dL (8.6-10.4); PTHI 42 pg/mL (16-77)
[2022-01-05 22:27] LABS: Zinc 77 mcg/dL (60-130)
[2022-01-06 14:01] LABS: Vitamin B1 11 nmol/L (8-30)
[2022-01-07 17:42] LABS: Vitamin A 41 mcg/dL (38-98)
== END 2022-01-01 09:38 | disposition home or self-care (01) ==
LOC: HO.LAB 09:37
PROVIDERS: PCP Internal Medicine; Referring Provider Internal Medicine; Visit Provider Physician Assistant Surgical
DX: E66.9 Obesity, unspecified (principal); Z71.3 Dietary counseling and surveillance; Z68.35 Body mass index [BMI] 35.0-35.9, adult; Z98.84 Bariatric surgery status; Z79.899 Other long term (current) drug therapy
CPT/HCPCS: 36415; 80053; 80061; 82306; 82607; 82728; 82746; 83036; 83525; 83540; 83970; 84425; 84443; 84590; 84630; 85025; 86140; 99212

== ENCOUNTER 2022-01-13 10:23 | Outpatient (REF) | payer MEDICAID, SELFPAY ==
--- NOTE | ~2022-01-13 | XR_ITS ---
EXAMINATION: XR SHOULDER, RIGHT CLINICAL INFORMATION: Pain right shoulder. COMPARISON: Right humerus radiographs 10/31/2013 TECHNIQUE: Right shoulder is imaged in 4 views. FINDINGS: No fracture or dislocation. There is minor spurring greater tuberosity. No visible rotator cuff calcifications. The acromioclavicular alignment is normal. Degenerative humeral joint appears normal. XR/XR shoulder RT min 2V IMPRESSION: -Minor spurring greater tuberosity. No visible rotator cuff calcifications.
== END 2022-01-13 10:24 | disposition home or self-care (01) ==
LOC: HO.XRAY 10:23
PROVIDERS: Absent Provider Internal Medicine; PCP Internal Medicine; Visit Provider Emergency Medicine
DX: M25.511 Pain in right shoulder (principal)
CPT/HCPCS: 73030

== ENCOUNTER 2022-01-20 08:54 | Outpatient (REF) | payer MEDICAID, SELFPAY | END 2022-01-20 08:55 | disposition home or self-care (01) | LOC: HO.MRI 08:54 | PROVIDERS: Visit Provider Emergency Medicine | DX: Z13.89 Encounter for screening for other disorder (principal) ==

== ENCOUNTER → 2022-07-14 10:37 | Outpatient (BNVA) | payer MEDICAID, SELFPAY | PROVIDERS: PCP Internal Medicine; Referring Provider Internal Medicine; Visit Provider Physician Assistant Surgical | DX: E66.9 Obesity, unspecified (principal); Z68.36 Body mass index [BMI] 36.0-36.9, adult; Z98.84 Bariatric surgery status | CPT/HCPCS: 99212 ==

== ENCOUNTER 2022-09-08 09:54 | Outpatient (REF) | payer MEDICAID, SELFPAY ==
--- NOTE | ~2022-09-08 | MM_ITS ---
EXAMINATION: MM SCREENING DIGITAL BREAST TOMOSYNTHESIS, BILATERAL CLINICAL INFORMATION: Screening. Asymptomatic. The lifetime risk of breast cancer based on the Tyrer-Cuzick Model is 5%. COMPARISON: Mammography: This study is compared to prior fracture mammograms dating back to 2017. TECHNIQUE: Digital breast tomosynthesis is performed in both the craniocaudal and mediolateral oblique views along with computer-aided detection (CAD). Synthesized 2D images are generated from the tomosynthesis. FINDINGS: There are scattered areas of fibroglandular density (ACR BI-RADS breast composition Category b). There are no significant masses, abnormal calcifications, or other abnormalities. IMPRESSION Y benign calcifications scattered in each breast.: No mammographic evidence of malignancy. ASSESSMENT: BI-RADS BI-RADS 2 - Benign Findings RECOMMENDATION: Routine annual mammography screening. 1 year F/U This patient's information was entered into a reminder system with a target due date for their next mammogram.
== END 2022-09-08 09:55 | disposition home or self-care (01) ==
LOC: HO.MAMMO 09:54
PROVIDERS: PCP Internal Medicine; Visit Provider Internal Medicine
DX: Z12.31 Encounter for screening mammogram for malignant neoplasm of breast (principal)
CPT/HCPCS: 77063; 77067

== ENCOUNTER → 2022-09-08 10:30 | Outpatient (BNV) | payer MEDICAID, SELFPAY | PROVIDERS: PCP Internal Medicine; Visit Provider Radiology Diagnostic Radiology | DX: Z12.31 Encounter for screening mammogram for malignant neoplasm of breast (principal) | CPT/HCPCS: 77063; 77067 ==

== ENCOUNTER 2022-12-03 10:33 | Outpatient (AMB) | payer MEDICAID, SELFPAY ==
--- NOTE | 2022-12-03 10:36 | A.OFFVIS_ITS ---
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 Haul Driver Required: Yes Short Haul Driver Name: office cmi Allergies glipizide [GLIPIZIDE] Allergy (Unknown, Verified 12/03/22 10:39) HIVES lisinopril Allergy (Unknown, Verified 12/03/22 10:39) hives Medication List - Last Reconciled 12/03/22 by CHRISTIANE Grimes atorvastatin 40 mg PO DAILY cetirizine (Zyrtec) 10 mg PO DAILY clotrimazole 1% 1 appl topical BID cyanocobalamin (vitamin B-12) 500 mcg PO DAILY dulaglutide (Trulicity) 0.75 mg subcut QWEEK ferrous fumarate (Ferrocite) 324 mg PO DAILY fluoxetine 20 mg PO DAILY insulin glargine (Lantus Solostar U-100 Insulin) 50 units subcut QAM losartan 50 mg PO QAM meclizine (Dramamine Less Drowsy) 25 mg PO TID PRN metformin 1,000 mg PO BID metoprolol succinate ER (Toprol XL) 50 mg PO DAILY tramadol 50 mg PO BID PRN HPI HPI Comments History of Present Illness Details The patient is a pleasant 62-year-old female who presents to the office today for a 5 year postoperative follow-up from her sleeve gastrectomy performed 10/29/2017. She was last seen in the office on 07/14/2022 with a weight of 201.4 lb and a BMI of 36.8. She states that her goal at that time was to lose more weight. Today, weight is 198 lb with a BMI of 36.2. She had Trulicity added to her medicine regimen. Reports her BS 75-100 vicky and highest is 115-125 Recommended meal plan from her last visit: 2 eggs w veg pure protein 1 scoop or pre made meal 7 forks/5 forks. exercise plan: [employer], treadmill/bike 4 x per week, 450 calories Any post op complications: none LIGIA: never DM: improved HTN: improved Hyperlipidemia: improved GERD:?0-5 scale ??0 = no symptoms ??1 = symptoms noticeable but not bothersome 2 =symptoms bothersome but not daily ? 3 = symptoms bothersome and daily 4 = symptoms affect daily activities 5 = symptoms are incapacitating, unable to do daily activities ? How bad is the heartburn: 0 ? Heartburn while lying down: 0 ? Heartburn when standing up: 0 ? Heartburn after meals: 0 ? Does heartburn change your diet: 0 ? Does heartburn wake you up from sleep: 0 ? Do you have difficulty swallowin ? Do you have pain with swallowin ? If you take medicine for your reflux, does this affect your daily life: 0 Satisfaction with present condition - satisfied or not satisfied: not satisfied, want to lose more weight PFSH Medical History Panniculitis Tubal ligation evaluation GERD (gastroesophageal reflux disease) Atrial fib/flutter, transient Obesity Hyperlipidemia Depression Hypertension Type II dens fracture of second cervical vertebra Tongue disorder Surgical History Hx of oral surgery History of carpal tunnel surgery Previous section S/P laparoscopic sleeve gastrectomy Family History Mother No problems noted. Father No problems noted. Social History Alcohol intake: never Patient Tobacco Use Status: Former Tobacco user Review of Systems Const All systems reviewed & are unremarkable except as noted in HPI and below Physical Exam Vital Signs: Last Vital Signs Temp 96.5 F L 12/03/22 10:42 Pulse 72 12/03/22 10:42 BP 145/66 H 12/03/22 10:42 Pulse Ox 96 12/03/22 10:42 Oxygen Delivery Method Room Air 12/03/22 10:42 BMI result Body Mass Index 36.2 Const General: cooperative and no acute distress Orientation/consciousness: patient oriented x3 Resp Effort & Inspection: normal respiratory effort Auscultation: clear to auscultation bilaterally Cardio Rate: regular rate Rhythm: regular rhythm GI Inspection: Yes normal to inspection and Yes incision (well healed) Palpation (GI): Soft to palpation and no masses Neuro General: patient oriented x3 Assessment & Plan Assessment & Plan (1) Obesity (BMI 30-39.9): Code(s): E66.9 - Obesity, unspecified Plan: check yearly labs follow BS closely and liekly will need decrease in meds. Continue exercise RTC 3 months Orders: Orders Lipid Panel Today E11.8 - Type 2 diabetes mellitus with unspecified compli cations, E66.9 - Obesity, unspecified, I10 - Essential (primary) hypertension, K91.2 - Postsurgical malabsorption, not elsewhere classified, Z90.3 - Acquired absence of stomach [part of] Complete Blood Count Auto Diff Today E11.8 - Type 2 diabetes mellitus with unspecified complications, E66.9 - Obesity, unspecified, I10 - Essential (primary) hypertension, K91.2 - Postsurgical malabsorption, not elsewhere classified, Z90.3 - Acquired absence of stomach [part of] Vitamin B12 and Folate Today E11.8 - Type 2 diabetes mellitus with unspecified complications, E66.9 - Obesity, unspecified, I10 - Essential (primary) hypertension, K91.2 - Postsurgical malabsorption, not elsewhere classified, Z90.3 - Acquired absence of stomach [part of] Vitamin B1 Today E11.8 - Type 2 diabetes mellitus with unspecified complications, E66.9 - Obesity, unspecified, I10 - Essential (primary) hypertension, K91.2 - Postsurgical malabsorption, not elsewhere classified, Z90.3 - Acquired absence of stomach [part of] Ferritin Today E11.8 - Type 2 diabetes mellitus with unspecified complications, E66.9 - Obesity, unspecified, I10 - Essential (primary) hypertension, K91.2 - Postsurgical malabsorption, not elsewhere classified, Z90.3 - Acquired absence of stomach [part of] PTHI Today E11.8 - Type 2 diabetes mellitus with unspecified complications, E66.9 - Obesity, unspecified, I10 - Essential (primary) hypertension, K91.2 - Postsurgical malabsorption, not elsewhere classified, Z90.3 - Acquired absence of stomach [part of] TSH reflex Free T4 Today E11.8 - Type 2 diabetes mellitus with unspecified complications, E66.9 - Obesity, unspecified, I10 - Essential (primary) hypertension, K91.2 - Postsurgical malabsorption, not elsewhere classified, Z90.3 - Acquired absence of stomach [part of] Hemoglobin A1c Today E11.8 - Type 2 diabetes mellitus with unspecified complications, E66.9 - Obesity, unspecified, I10 - Essential (primary) hypertension, K91.2 - Postsurgical malabsorption, not elsewhere classified, Z90.3 - Acquired absence of stomach [part of] Basic Metabolic Panel Today E11.8 - Type 2 diabetes mellitus with unspecified complications, E66.9 - Obesity, unspecified, I10 - Essential (primary) hypertension, K91.2 - Postsurgical malabsorption, not elsewhere classified, Z90.3 - Acquired absence of stomach [part of] Insulin Today E11.8 - Type 2 diabetes mellitus with unspecified complications, E66.9 - Obesity, unspecified, I10 - Essential (primary) hypertension, K91.2 - Postsurgical malabsorption, not elsewhere classified, Z90.3 - Acquired absence of stomach [part of] IRON PROFILE Today E11.8 - Type 2 diabetes mellitus with unspecified complications, E66.9 - Obesity, unspecified, I10 - Essential (primary) hypertension, K91.2 - Postsurgical malabsorption, not elsewhere classified, Z90.3 - Acquired absence of stomach [part of] Zinc Today E11.8 - Type 2 diabetes mellitus with unspecified complications, E66.9 - Obesity, unspecified, I10 - Essential (primary) hypertension, K91.2 - Postsurgical malabsorption, not elsewhere classified, Z90.3 - Acquired absence of stomach [part of] Vitamin A Today E11.8 - Type 2 diabetes mellitus with unspecified complications, E66.9 - Obesity, unspecified, I10 - Essential (primary) hypertension, K91.2 - Postsurgical malabsorption, not elsewhere classified, Z90.3 - Acquired absence of stomach [part of] C Reactive Protein Today E11.8 - Type 2 diabetes mellitus with unspecified complications, E66.9 - Obesity, unspecified, I10 - Essential (primary) hypertension, K91.2 - Postsurgical malabsorption, not elsewhere classified, Z90.3 - Acquired absence of stomach [part of] Vitamin D 25-OH Total Today E11.8 - Type 2 diabetes mellitus with unspecified complications, E66.9 - Obesity, unspecified, I10 - Essential (primary) hypertension, K91.2 - Postsurgical malabsorption, not elsewhere classified, Z90.3 - Acquired absence of stomach [part of] Coding Level of Care Code Est Pt Level 4 (20273) Diagnoses Obesity (BMI 30-39.9) E66.9 Time Spent (min) 40
[2022-12-03 10:42] VITALS: BP 145/66; PULSE 72; TEMP 35.8; O2SAT 96; BMI 36.2
== END 2022-12-03 11:24 | disposition home or self-care (01) ==
PROVIDERS: PCP Internal Medicine; Visit Provider Physician Assistant Surgical
DX: E66.9 Obesity, unspecified (principal)
CPT/HCPCS: 99214

== ENCOUNTER → 2022-12-03 10:33 | Outpatient (BNVA) | payer MEDICAID, SELFPAY | PROVIDERS: PCP Internal Medicine; Visit Provider Physician Assistant Surgical | DX: E66.9 Obesity, unspecified (principal); Z68.36 Body mass index [BMI] 36.0-36.9, adult | CPT/HCPCS: 99212 ==

== ENCOUNTER 2022-12-04 07:06 | Outpatient (REF) | payer MEDICAID, SELFPAY ==
[2022-12-04 07:24] LABS: MANUAL DIFF FLAG NO
[2022-12-04 07:32] LABS: Basophils Percent Auto 0.4 % (0-2); Eosinophils Absolute Auto 0.1 X10*3/uL (0.0-0.4); Eosinophils Percent Auto 1.1 % (0-4); Hematocrit 42.7 % (37.0-47.0); Hemoglobin 13.9 g/dl (12.0-16.0); Imm Gran Abs Auto 0.02 X10*3/uL (0.00-0.03); Imm Gran Pct Auto 0.2 % (0.0-0.4); Lymphocytes Absolute Auto 2.8 X10*3/uL (1.2-4.9); Lymphocytes Percent Auto 34.4 % (20-40); Mean Corpuscular HGB Conc 32.6 g/dl (31.0-35.0); Mean Corpuscular Hemoglobin 30.2 pg (27.0-33.0); Mean Corpuscular Volume 92.8 fL (80.0-98.0); Mean Platelet Volume 12.3 fL (9.4-12.3); Monocytes Absolute Auto 0.6 X10*3/uL (0.1-1.2); Neutrophils Absolute Auto 4.6 x10*3/uL (2.0-8.3); Neutrophils Percent Auto 56.9 % (45-73); Platelet Count 253 X10*3/uL (160-400); Red Cell Distribution Width 13.9 % (11.0-16.0); White Blood Count 8.1 X10*3/uL (4.8-10.8)
[2022-12-04 08:02] LABS: Anion Gap 13 (12-20); Blood Urea Nitrogen 7 mg/dL (9-16); C Reactive Protein 0.42 mg/dL (< or = 0.50); Calcium 9.4 mg/dL (8.4-10.2); Carbon Dioxide 28 mmol/L (22-29); Chloride 109 mmol/L (96-108); Cholesterol 110 mg/dL (<200); Estimated Average Glucose 131 mg/dL; Estimated Glomerular Filt Rate > 60; Glucose Random 81 mg/dL (60-115); HDL Cholesterol 36 mg/dL (>40); Hemoglobin A1C 145.9244 umol/L; Hemoglobin A1c % 6.2 % (<6.0); Iron 74 mcg/dL (30-160); LDL Cholesterol Calculated 60 mg/dL (<100); Percent Iron Saturation 27 % (15-50); Potassium 4.1 mmol/L (3.3-5.1); Sodium 146 mmol/L (135-145); Total Iron Binding Capacity 278 mcg/dL (228-428); Triglycerides 74 mg/dL (<150); Unsaturated Iron Binding 204 ug/dL
[2022-12-04 08:20] LABS: Ferritin 63 ng/mL (10-250); Insulin 44 uU/mL (2-29); TSH reflex Free T4 2.52 uIU/mL (0.32-4.0); Vitamin D 25-OH Total 43.8 ng/mL (>30)
[2022-12-04 08:31] LABS: Folate 13.8 ng/mL (> or = 4.0); Vitamin B12 410 pg/mL (200-900)
[2022-12-05 16:58] LABS: Calcium (PTHI) 9.3 mg/dL (8.6-10.4); PTHI 44 pg/mL (16-77)
[2022-12-08 17:44] LABS: Zinc 90 mcg/dL (60-130)
[2022-12-09 16:54] LABS: Vitamin B1 24 nmol/L (8-30)
[2022-12-10 16:24] LABS: Vitamin A 46 mcg/dL (38-98)
== END 2022-12-04 07:07 | disposition home or self-care (01) ==
LOC: HO.LAB 07:06
PROVIDERS: PCP Internal Medicine; Visit Provider Physician Assistant Surgical
DX: E66.9 Obesity, unspecified (principal); E11.8 Type 2 diabetes mellitus with unspecified complications; K91.2 Postsurgical malabsorption, not elsewhere classified; I10 Essential (primary) hypertension; Z90.3 Acquired absence of stomach [part of]
CPT/HCPCS: 36415; 80048; 80061; 82306; 82607; 82728; 82746; 83036; 83525; 83540; 83970; 84425; 84443; 84590; 84630; 85025; 86140

== ENCOUNTER 2022-12-25 08:26 | Outpatient (REF) | payer MEDICAID, SELFPAY ==
[2022-12-25 12:18] LABS: Anion Gap 13 (12-20); Blood Urea Nitrogen 8 mg/dL (9-16); Calcium 9.6 mg/dL (8.4-10.2); Carbon Dioxide 28 mmol/L (22-29); Chloride 105 mmol/L (96-108); Estimated Glomerular Filt Rate > 60; Glucose Random 135 mg/dL (60-115); Sodium 142 mmol/L (135-145)
== END 2022-12-25 08:27 | disposition home or self-care (01) ==
LOC: HO.HHCL 08:26
PROVIDERS: Visit Provider Internal Medicine
DX: I10 Essential (primary) hypertension (principal)
CPT/HCPCS: 36415; 80048

== ENCOUNTER → 2023-04-24 10:43 | Outpatient (REF) | payer MEDICAID, SELFPAY ==
--- NOTE | 2023-04-24 10:58 | CA_ITS ---
Transthoracic Echocardiogram Patient (Last, First, Middle): Eunice Romano D Gender: Female Date of : 1960 Age: 63 Procedure Date: 04/24/2023 Procedure Type: Transthoracic Echocardiogram Location: OP Height: 157.48 cm Weight: 84.82 kg BSA: 1.86 m2 Heart Rate: 66 bpm BP: 140 / 70 mmHg Agility Instructor: VAHID Esquivel MD: Garrick Cisneros MD Symptoms: I48.0 - Paroxysmal atrial fibrillation Study Quality: Adequate ECG Rhythm: Sinus Conclusions: - Normal left ventricular size and systolic function. There is mildly increased left ventricular wall thickness. The visually estimated ejection fraction is between 65-70%. - E/E prime ratio is >15, consistent with elevated filling pressures. - Normal right ventricular cavity size and systolic function. - There is mild aortic valve stenosis. Findings Left Ventricle Normal left ventricular size and systolic function. There is mildly increased left ventricular wall thickness. The visually estimated ejection fraction is between 65-70%. There is no evidence of regional wall motion abnormalities. Abnormal diastolic function is noted. Spectral Doppler is indicative of an impaired relaxation filling pattern. E/E prime ratio is >15, consistent with elevated filling pressures. Right Ventricle Normal right ventricular cavity size and systolic function. Atria The left atrium is normal in size. The right atrium is normal in size. Aortic Valve There is a normal trileaflet aortic valve. There is mild calcification of the aortic valve. There is mild aortic valve stenosis. There is trace (trivial) aortic valve regurgitation. Mitral Valve The mitral valve appears normal. There is no mitral valve regurgitation. There is no mitral valve stenosis. Pulmonic Valve The pulmonic valve is likely normal. Tricuspid Valve Normal tricuspid valve structure. There is no tricuspid valve regurgitation. Normal right atrial pressure. There is no evidence of pulmonary hypertension. Great Vessels All visible segments of the aorta are normal in size. Venous The inferior vena cava is normal in size and collapses greater than 50% with inspiration. Pericardium/Pleural There is no evidence of pericardial effusion. Prior Study Comparison No significant change compared to prior study dated: 03/29/2021. Measurements 2D Linear Measurements IVSd: 0.99 0.6-0.9/0.6-1.0 cm LVIDd: 4.67 3.9-5.3/4.2-5.9 cm LVIDd Index: 2.51 2.4-3.2/2.2-3.1 cm/m2 LVIDs: 2.49 2.0-3.6 cm LVPWd: 1.08 0.7-1.1 cm LA Diam: 3.80 2.7-3.8/3.0-4.0 cm LAIDs Index: 2.04 1.5-2.3 cm/m2 LV Mass: 212.51 67-162/88-224 g LV Mass Index: 114.25 43-95/49-115 g/m2 LVOT Diam: 1.90 3.0+(-)1.3 cm 2D Systolic Function EF 4C: 60.50 >55% EF 2C: 71.20 >55% EF BiP: 65.50 >55% Mitral Valve MV Pk E: 1.13 MV PK A: 1.19 MV Decel Time: 190.00 E/A: 0.90 E'Lateral: 7.07 E'Medial: 7.07 E/E' Med: 16.00 E/E' Lat: 16.00 PHT: 56.00 MVA PHT: 3.93 Decel [place]: 5.92 Aortic Valve AoV Pk Bean: 2.05 AoV Mn Bean: 1.38 AoV VTI: 0.44 AoV Pk Grad: 17.00 Aov Mn Grad: 9.00 BETTYE Cont.VTI: 1.50 LVOT LVOT Pk Bean: 1.13 LVOT Mn Bean: 0.70 LVOT VTI: 0.23 LVOT Pk Grad: 5.00 LVOT Mn Grad: 2.00 LVOT Diam: 1.90 LVOT Area: 2.84 Diastolic Function MV Pk E: 1.13 MV Pk A: 1.19 E/A: 0.90 E'Medial: 7.07 E/E' Med: 16.00 E' Laterial: 7.07 E/E' Lat: 16.00 Right Ventricle TAPSE (mm): 20.40 TVS' Bean: 14.60 Tricuspid Valve TR Pk Bean: 1.89 TR Pk Grad: 14.00 RA Press: 3.00 RVSP: 17.00 Great Vessels Aorta Sinus of Valsalva: 2.70 2.0-3.5 cm Ao Asc: 3.20 2.1-3.4 cm Pulmonary Valve PV Pk Bean: 1.09 Peak PV Grad: 5.00 Updated in Other Vendor System with Status of Final Aron Valles MD electronically signed on 04/25/2023 8:40:24 PM with status of Final
== END ==
LOC: HO.CARD 10:43
PROVIDERS: PCP Internal Medicine; Visit Provider Internal Medicine
DX: I48.0 Paroxysmal atrial fibrillation (principal); I35.0 Nonrheumatic aortic (valve) stenosis
CPT/HCPCS: 93306

== ENCOUNTER → 2023-04-24 10:58 | Outpatient (BNV) | payer MEDICAID, SELFPAY | PROVIDERS: PCP Internal Medicine; Visit Provider Internal Medicine Cardiovascular Disease | DX: I35.0 Nonrheumatic aortic (valve) stenosis (principal); I48.0 Paroxysmal atrial fibrillation | CPT/HCPCS: 93306 ==

== ENCOUNTER 2023-04-28 13:26 | Outpatient (AMB) | payer MEDICAID, SELFPAY ==
--- NOTE | 2023-04-28 13:49 | A.OFFVIS_ITS ---
Intake Vital Signs 04/28/23 13:51 Height 5 ft 2 in Weight 198 lb 6.656 oz BMI 36.3 BP 138/70 Blood Pressure Location Lt brachial Position Sitting Pulse 81 Intake Visit Reasons: 2 year follow up Intake Note: 2 year follow up Lease Administrator Required: Yes Lease Administrator Language: Supervisor Screen Making Name: Silvano [id number] Accompanied by: Self / Same As Patient Allergies glipizide [GLIPIZIDE] Allergy (Unknown, Verified 04/28/23 13:52) HIVES lisinopril Allergy (Unknown, Verified 04/28/23 13:52) hives Medication List - Last Reconciled 04/28/23 by Garrick Cisneros MD atorvastatin 40 mg PO DAILY cetirizine (Zyrtec) 10 mg PO DAILY clotrimazole 1% 1 appl topical BID cyanocobalamin (vitamin B-12) 500 mcg PO DAILY dulaglutide (Trulicity) 0.75 mg subcut QWEEK ferrous fumarate (Ferrocite) 324 mg PO DAILY fluoxetine 20 mg PO DAILY insulin glargine (Lantus Solostar U-100 Insulin) 50 units subcut QAM losartan 50 mg PO QAM meclizine (Dramamine Less Drowsy) 25 mg PO TID PRN metformin 1,000 mg PO BID metoprolol succinate ER (Toprol XL) 50 mg PO DAILY tramadol 50 mg PO BID PRN HPI HPI Comments History of Present Illness Details Eunice returns for follow-up. Last seen about 2 years ago. To recall, she has a history of atrial fibrillation but only one documented episode in 2010. At that time, resolved with procainamide and Cardizem and had short-term anticoagulation. No recurrences after that. Due to obesity, she underwent gastric sleeve surgery and lost a lot of weight. She was apparently weighing almost 300 lb before surgery. Multiple risk factors including type 2 diabetes, hypertension, dyslipidemia on appropriate therapy. She also has mild aortic stenosis. Overall, doing good. No cardiac symptoms whatsoever. [facility]LY [facility] Medical History Panniculitis Tubal ligation evaluation GERD (gastroesophageal reflux disease) Atrial fib/flutter, transient Obesity Hyperlipidemia Depression Hypertension Type II dens fracture of second cervical vertebra Tongue disorder Surgical History Hx of oral surgery History of carpal tunnel surgery Previous section S/P laparoscopic sleeve gastrectomy Family History Mother No problems noted. Father No problems noted. Social History Alcohol intake: never Patient Tobacco Use Status: Former Tobacco user Review of Systems Const Denies weakness ENT Denies dizziness Card Denies chest pain, Denies chest pain with activity, Denies syncope, Denies rapid heart rate, Denies pedal edema, Denies edema, Denies leg edema, Denies lightheadedness, Denies palpitations, Denies dyspnea, Denies dyspnea on exertion and Denies orthopnea Resp Denies cough, Denies dyspnea and Denies dyspnea on exertion GI Denies hematochezia and Denies change in stool character Musc Denies abnormal gait, Denies muscle cramps, Denies muscle weakness, Denies numbness, Denies radiating pain into limb and Denies tingling Neuro Denies abnormal gait, Denies dizziness, Denies syncope, Denies numbness, Denies tingling and Denies weakness Endo Denies palpitations Physical Exam Vital Signs: Last Vital Signs Pulse 81 04/28/23 13:51 BP 138/70 04/28/23 13:51 BMI result Body Mass Index 36.3 Const General: comfortable and no acute distress Orientation/consciousness: patient oriented x3 HEENT Other: Unremarkable Head: Yes normal to inspection Neck Neck: Yes normal visual inspection Chest Chest palpation & inspection: normal inspection of the chest Resp Auscultation: clear to auscultation bilaterally Cardio Palpation: normal PMI Heart sounds: S1 normal heart sound present, S2 normal heart sound present, no gallops, Murmur heart sound present systolic II/ and no rubs GI Palpation (GI): Soft to palpation Back/Spine/Pelvis Other: unremarkable Skin General skin exam: no rashes or lesions noted Neuro General: patient oriented x3 Extrem General: Yes normal to inspection Psych Mental Status: mental status grossly normal Office Procedures EKG Details: EKG with underlying sinus rhythm at 81/Min; no significant ST-T changes and otherwise unremarkable. [place] [id number], Complete Assessment & Plan Assessment & Plan (1) Non-rheumatic aortic stenosis: Code(s): I35.0 - Nonrheumatic aortic (valve) stenosis Plan: Echocardiogram with mild aortic stenosis. We can repeat another study about 3 years or so. Discussed with patient. (2) PAF (paroxysmal atrial fibrillation): Code(s): I48.0 - Paroxysmal atrial fibrillation Plan: Isolated, remote episode. No recent recurrences. (3) Morbid obesity: Code(s): E66.01 - Morbid (severe) obesity due to excess calories Plan: Status post bariatric surgery. (4) Essential hypertension: Code(s): I10 - Essential (primary) hypertension Plan: On metoprolol and losartan. (5) Other and unspecified hyperlipidemia: Code(s): E78.5 - Hyperlipidemia, unspecified Plan: On statins. Last LDL 60 mg/dl. Coding Level of Care Code Est Pt Level 4 (27319) Diagnoses Non-rheumatic aortic stenosis I35.0 PAF (paroxysmal atrial fibrillation) I48.0 Morbid obesity E66.01 Essential hypertension I10 Other and unspecified hyperlipidemia E78.5 CPT Codes EKG - CPT: 25636-[id number], Complete ([id number])
[2023-04-28 13:51] VITALS: BP 138/70; PULSE 81; BMI 36.3
== END 2023-04-28 14:30 | disposition home or self-care (01) ==
PROVIDERS: PCP Internal Medicine; Visit Provider Internal Medicine
DX: I35.0 Nonrheumatic aortic (valve) stenosis (principal); I48.0 Paroxysmal atrial fibrillation; E66.01 Morbid (severe) obesity due to excess calories; I10 Essential (primary) hypertension; E78.5 Hyperlipidemia, unspecified
CPT/HCPCS: 93010; 99214

== ENCOUNTER → 2023-04-28 13:26 | Outpatient (BNVA) | payer MEDICAID, SELFPAY | PROVIDERS: PCP Internal Medicine; Visit Provider Internal Medicine | DX: I35.0 Nonrheumatic aortic (valve) stenosis (principal); I48.0 Paroxysmal atrial fibrillation; I10 Essential (primary) hypertension; E66.01 Morbid (severe) obesity due to excess calories; E78.5 Hyperlipidemia, unspecified; Z68.36 Body mass index [BMI] 36.0-36.9, adult | CPT/HCPCS: 93005; 99212 ==

== ENCOUNTER 2023-05-05 16:51 | Outpatient (REF) | payer MEDICAID, SELFPAY ==
[2023-05-05 18:05] LABS: Creatinine Urine 93.58 mg/dL; Microalbum/Creatinine Ratio Ur 6.4 ug/mg cr (<30)
== END 2023-05-05 16:52 | disposition home or self-care (01) ==
LOC: HO.HHCLNP 16:51
PROVIDERS: Visit Provider Internal Medicine
DX: E11.69 Type 2 diabetes mellitus with other specified complication (principal); E66.9 Obesity, unspecified
CPT/HCPCS: 82043; 82570

== ENCOUNTER 2023-09-14 10:16 | Outpatient (REF) | payer MEDICAID, SELFPAY ==
--- NOTE | ~2023-09-14 | MM_ITS ---
EXAMINATION: MM SCREENING DIGITAL BREAST TOMOSYNTHESIS, BILATERAL CLINICAL INFORMATION: Screening. Asymptomatic. COMPARISON: Mammography: This study is compared with prior exams dating back to 2019. TECHNIQUE: Digital breast tomosynthesis is performed in both the craniocaudal and mediolateral oblique views along with computer-aided detection (CAD). Synthesized 2D images are generated from the tomosynthesis. FINDINGS: There are scattered areas of fibroglandular density (ACR BI-RADS breast composition Category b). There are no significant masses, abnormal calcifications, or other abnormalities. Bilateral benign calcifications are present. MM/MM tomosynthesis screening BI IMPRESSION: No mammographic evidence of malignancy. ASSESSMENT: BI-RADS BI-RADS 2 - Benign Findings RECOMMENDATION: Routine annual mammography screening. 1 year F/U This examination should not preclude the clinical evaluation of a suspicious palpable abnormality. This patient's information was entered into a reminder system with a target due date for their next mammogram.
== END 2023-09-14 10:17 | disposition home or self-care (01) ==
LOC: HO.MAMMO 10:16
PROVIDERS: PCP Internal Medicine; Visit Provider Internal Medicine
DX: Z12.31 Encounter for screening mammogram for malignant neoplasm of breast (principal)
CPT/HCPCS: 77063; 77067

== ENCOUNTER → 2023-09-14 11:00 | Outpatient (BNV) | payer MEDICAID, SELFPAY | PROVIDERS: PCP Internal Medicine; Visit Provider Radiology Diagnostic Radiology | DX: Z12.31 Encounter for screening mammogram for malignant neoplasm of breast (principal) | CPT/HCPCS: 77063; 77067 ==

== ENCOUNTER 2023-10-23 19:13 | Emergency (ER) | payer MEDICAID, SELFPAY ==
--- NOTE | ~2023-10-23 | XR_ITS ---
EXAMINATION: XR HAND/WRIST, RIGHT CLINICAL INFORMATION: Pain and swelling of the thumb. Limited range of motion. COMPARISON: None TECHNIQUE: 4 views of the right hand and wrist. FINDINGS: Diffuse osteopenia. No acute fracture or dislocation. Minimal degenerative change at the DIP joints of all digits and at the interphalangeal joint of the first digit seen with minimal spurring and joint space narrowing noted. No joint or soft tissue calcifications. No erosive changes. No radiopaque foreign body. XR/XR hand wrist RT IMPRESSION: Diffuse osteopenia. No acute fracture or dislocation. Mild osteoarthritic changes.
--- NOTE | 2023-10-23 19:42 | ED.UPPEXIN ---
HPI - Extremity Injury (Upper) General Chief Complaint: Extremity Injury, Upper Stated Complaint: R hand pain Time Seen by Provider: 10/23/23 20:36 Source: patient Mode of arrival: ambulatory Limitations: no limitations History of Present Illness ED Provider: Chelsie RABAGO HPI narrative: 63-year-old female history of osteoarthritis diabetes, hypertension presents with right thumb pain for the past 2 weeks, patient reports this started after she yanked on a door that was jammed clothes, she reports pain is worse with movement better at rest. Denies numbness or tingling. Denies blunt trauma to the area. Denies fevers, chills. No previous history of surgeries to that hand or other injuries. Related Data Home Medications ?Medication ?Instructions ?Recorded ?Confirmed cetirizine 10 mg capsule (Zyrtec) 10 mg PO DAILY 12/21/19 04/28/23 fluoxetine 20 mg capsule 20 mg PO DAILY 12/21/19 04/28/23 metformin 1,000 mg tablet 1,000 mg PO BID 12/21/19 04/28/23 metoprolol succinate 50 mg 50 mg PO DAILY 12/21/19 04/28/23 tablet,extended release 24 hr (Toprol XL) tramadol 50 mg tablet 50 mg PO BID PRN 12/21/19 04/28/23 losartan 50 mg tablet 50 mg PO QAM 04/09/21 04/28/23 dulaglutide 0.75 mg/0.5 mL 0.75 mg subcut QWEEK 07/14/22 04/28/23 subcutaneous pen injector (Trulicity) insulin glargine 100 unit/mL (3 50 unit subcut QAM 07/14/22 04/28/23 mL) subcutaneous pen (Lantus Solostar U-100 Insulin) Previous Rx's ?Medication ?Instructions ?Recorded cyanocobalamin (vitamin B-12) 500 500 mcg PO DAILY #30 tabs 05/24/21 mcg tablet clotrimazole 1 % topical cream 1 appl topical BID #28.4 grams 07/02/21 meclizine 25 mg tablet (Dramamine 25 mg PO TID PRN dizziness #20 tabs 09/09/21 Less Drowsy) atorvastatin 40 mg tablet 40 mg PO DAILY #90 tabs 09/12/21 ferrous fumarate 324 mg (106 mg 324 mg PO DAILY #90 tabs 07/22/22 iron) tablet (Ferrocite) naproxen 500 mg tablet 500 mg PO BID PRN pain #14 tabs 10/23/23 Allergies Allergy/AdvReac Type Severity Reaction Status Date / Time glipizide [GLIPIZIDE] Allergy Unknown HIVES Verified 10/23/23 19:47 lisinopril Allergy Unknown hives Verified 10/23/23 19:47 Review of Systems Review of Systems: Yes all other systems are reviewed and are negative [facility] Past Medical History Attestation statement: The following information was validated with the patient. Source: old records reviewed and nursing notes reviewed Medical History Panniculitis Tubal ligation evaluation GERD (gastroesophageal reflux disease) Atrial fib/flutter, transient Obesity Hyperlipidemia Depression Hypertension Type II dens fracture of second cervical vertebra Tongue disorder Surgical History Hx of oral surgery History of carpal tunnel surgery Previous section S/P laparoscopic sleeve gastrectomy Family History Family History Mother No problems noted. Father No problems noted. Social History Social History Alcohol intake: never Patient Tobacco Use Status: Former Tobacco user Advance Directives: No Advance Directives Information Provided: No Physical Exam Vital Signs: Vital Signs: Last Vital Signs Temp 98.1 F 10/23/23 22:03 Pulse 73 10/23/23 22:03 Resp 14 10/23/23 22:03 BP 143/59 H 10/23/23 22:03 Pulse Ox 96 10/23/23 22:03 O2 Del Method Room Air 10/23/23 22:03 BMI result Body Mass Index 37.8 vss Appearance: Alert.? Oriented X3.? No acute distress.? Head: Normocephalic, atraumatic, no step-offs or deformities Eyes: Pupils equal, round and reactive to light.? ENT: Pharynx normal.? Neck: Normal inspection.? Neck supple.? CVS: Normal heart rate and rhythm.? Pulses normal.? Respiratory: No respiratory distress.? Breath sounds normal.? Abdomen: Soft and nontender.? Skin: Skin warm and dry.? Normal skin color.? Normal skin turgor.? Extremities: No lower extremity edema.? No calf ttp. 5/5 strength to bilateral upper and lower extremities 2+ radial pulses equal bilateral. No wrist drop. Capillary refill less than 2 seconds to bilateral upper extremity digits. Normal sensation did disc still digits. Patient does have discomfort with palpation of right scaphoid region. No overlying skin changes. No edema, erythema. Normal range of motion to bilateral wrist and fingers. Neuro: Oriented X 3.? No motor deficit.? No sensory deficit. CN 2-12 intact Course Course Course Narrative: This is a Rapid Medical Exam performed in triage by Ninoska Anders PA-C. Full HPI, ROS and PE to be performed by primary ED provider. 63 year-old F w/ PMHx DM, PAF, , HLD, HTN presenting to the ED c/o R thumb/hand pain x2 wks s/p trying to open a door. PE: +R thumb w/swelling and pain. limited ROM. unable to perform finger to thumb opposition to 4-5th digits Plan: XR Medical Decision Making Medical Decision Making MDM Narrative: 63-year-old female presents with right thumb pain that is started 2 weeks ago. Physical exam 5/5 strength to bilateral upper and lower extremities 2+ radial pulses equal bilateral. No wrist drop. Capillary refill less than 2 seconds to bilateral upper extremity digits. Normal sensation did disc still digits. Patient does have discomfort with palpation of right scaphoid region. No overlying skin changes. No edema, erythema. Normal range of motion to bilateral wrist and fingers. History and physical exam concerning for strain or sprain of finger. Also concerning for injury scaphoid region. Unlikely neurovascular compromise acute threat to limb. Patient placed in a thumb spica splint. Osteoarthritic changes noted on x-ray. Patient to follow-up with ortho outpatient Educated patient on diagnosis and treatment plan, answered all question, patient verbalizes understanding. At this time patient will be discharged home, advised to return with new or worsening symptoms. Educated on worrisome signs and symptoms and when to return. At this time I feel comfortable discharge home. Differential Diagnosis Differential Diagnoses: The differential diagnosis associated with the presentation includes History and physical exam concerning for strain or sprain of finger. Also concerning for injury scaphoid region. Unlikely neurovascular compromise acute threat to limb. Admission/Observation Consideration of admission/observation: Escalation of care including admission/observation considered unlikely Independent Interpretation I performed an independent interpretation of an: Plain X-Ray ( XR/XR hand wrist RT IMPRESSION: Diffuse osteopenia. No acute fracture or dislocation. Mild osteoarthritic changes. ) Radiology Impression Discussion of test interpretation with radiology: I have reviewed the radiologist's reading. Chronic Conditions Patient?s care impacted by: Diabetes, Hypertension and Other (osteoarthritis ) Discharge Plan Discharge Clinical Impression: Pain of left thumb, Osteoarthritis Patient Disposition: Home, Self-Care Additional Instructions: Take your medications as prescribed. If you were prescribed antibiotics today, it is important that you take your medication to their entirety, do not skip any doses, do not finish them early. Follow-up with your primary care provider this week. Return to the emergency department with new or worsening symptoms. Such as fevers, chills, chest pain, shortness of breath, nausea, vomiting, dizziness, headache, vision changes, lethargy In case of emergency call 911 Follow-up with the orthopedic team in a week or 2. Wear the splint during the day take it off at night. XR/XR hand wrist RT IMPRESSION: Diffuse osteopenia. No acute fracture or dislocation. Mild osteoarthritic changes. Prescriptions: New naproxen 500 mg tablet 500 mg PO BID PRN (Reason: pain) Qty: 14 0RF Rx Instructions: Take with food No Action cyanocobalamin (vitamin B-12) 500 mcg tablet 500 mcg PO DAILY Qty: 30 11RF atorvastatin 40 mg tablet 40 mg PO DAILY Qty: 90 3RF ferrous fumarate [Ferrocite] 324 mg (106 mg iron) tablet 324 mg PO DAILY Qty: 90 3RF meclizine [Dramamine Less Drowsy] 25 mg tablet 25 mg PO TID PRN (Reason: dizziness) Qty: 20 0RF metoprolol succinate [Toprol XL] 50 mg tablet extended release 24 hr 50 mg PO DAILY tramadol 50 mg tablet 50 mg PO BID PRN Zyrtec 10 mg capsule 10 mg PO DAILY fluoxetine 20 mg capsule 20 mg PO DAILY metformin 1,000 mg tablet 1,000 mg PO BID Lantus Solostar U-100 Insulin 100 unit/mL (3 mL) insulin pen 50 unit subcut QAM clotrimazole 1 % cream 1 appl topical BID Qty: 28.4 6RF losartan 50 mg tablet 50 mg PO QAM Trulicity 0.75 mg/0.5 mL pen injector 0.75 mg subcut QWEEK Referrals: [facility] Orthopedic Surgeons [Provider Group] - 2 days Print Language: Chinese
[2023-10-23 19:44] VITALS: BP 155/82; PULSE 75; RESP 18; TEMP 36.6; O2SAT 96; BMI 37.8
[2023-10-23 20:04] VITALS: BP 149/60; PULSE 70; RESP 16; TEMP 36.8; O2SAT 94
[2023-10-23 22:03] VITALS: BP 143/59; PULSE 73; RESP 14; TEMP 36.7; O2SAT 96
[2023-10-23] MEDS: NaPROXEN 500 MG TABLET PO (22:50)
[2023-10-23 22:54] VITALS: BP 143/59; PULSE 73; RESP 14; TEMP 36.7; O2SAT 96
== END 2023-10-23 22:56 | disposition home or self-care (01) ==
PROVIDERS: Emergency Provider Emergency Medicine; PCP Internal Medicine
DX: M79.644 Pain in right finger(s) (principal); M19.041 Primary osteoarthritis, right hand
CPT/HCPCS: 29130; 73110; 73130; 99283; 99284

== ENCOUNTER 2024-02-02 08:07 | Outpatient (REF) | payer MEDICAID, SELFPAY ==
[2024-02-02 12:29] LABS: Anion Gap 11 (12-20); Blood Urea Nitrogen 11 mg/dL (9-16); Calcium 9.7 mg/dL (8.4-10.2); Carbon Dioxide 29 mmol/L (22-29); Chloride 103 mmol/L (96-108); Cholesterol 122 mg/dL (<200); Estimated Glomerular Filt Rate > 60; Glucose Random 129 mg/dL (60-115); HDL Cholesterol 32 mg/dL (>40); LDL Cholesterol Calculated 74 mg/dL (<100); Potassium 4.2 mmol/L (3.3-5.1); Sodium 139 mmol/L (135-145); Triglycerides 82 mg/dL (<150)
== END 2024-02-02 08:08 | disposition home or self-care (01) ==
LOC: HO.HHCL 08:07
PROVIDERS: Visit Provider Internal Medicine
DX: I10 Essential (primary) hypertension (principal); E66.9 Obesity, unspecified; E11.69 Type 2 diabetes mellitus with other specified complication
CPT/HCPCS: 36415; 80048; 80061

== ENCOUNTER 2024-04-07 | Outpatient (REF) | payer MEDICAID, SELFPAY ==
--- OUTSIDE RECORDS SUMMARY | 2024-04-15 14:25 | XMS_ITS | Encounter Summary ---
Author Organization [email or web address] Address [address] [address] [address] 7t [place] [address] Care Team Providers Care Cage Fighter Name Role Phone Nate Castaneda MD Primary [...] Care Team (Late st Contact Info) Description 06/02/2024 10:00 AM EDT Office Visit [facility] MEDICINE 230 [place] [address] Nate Castaneda MD 230 [place] [address] documented as of this encounter Visit Diagnoses Not on filedocumented in this encounter Additional Health Concerns Assessment Noted Time PHQ-9 Depression Total Score: 5 05/05/19 24 11:43 AM EST documented as of this encounter Care Teams Cage Fighter Relationship Specialty Start Date End Date Nate Castaneda MD 230 [place] [address] PCP - General Internal Medicine 12/15/13 documented as of this encounter
--- OUTSIDE RECORDS SUMMARY | 2024-04-15 14:25 | XMS_ITS | Encounter Summary ---
Author Organization [employer] Address [address] 7t [place] [address] Care Team Providers Care Human Geography Instructor Name Role Phone Nate Castaneda MD Primary Care Provide r Reason for Visit * Reason Onset Date Comments Med Refill 10/08/2023 Encounter Details Date Type Department Care Team ([facility] st Contact Info) Description 10/08/2023 Telephone [facility] MEDICINE 230 [place], [place] [phone] Nate Castaneda MD 230 [place], [place] [phone] Med Refill Social History Tobacco Use Types [...] Description 06/02/2024 10:00 AM EDT Office Visit [facility] MEDICINE 230 [place] [address] Nate Castaneda MD 230 [place] [address] documented as of this encounter Visit Diagnoses Not on filedocumented in this encounter Additional Health Concerns Assessment Noted Time PHQ-9 Depression Total Score: 5 05/05/19 24 11:43 AM EST documented as of this encounter Care Teams Human Geography Instructor Relationship Specialty Start Date End Date Nate Castaneda MD 230 [place] [address] PCP - General Internal Medicine 12/15/13 documented as of this encounter
--- OUTSIDE RECORDS SUMMARY | 2024-04-15 14:25 | XMS_ITS | Encounter Summary ---
Author Organization [employer] Address [address] [facility] [address] 7[address] [place] [address] Care Team Providers Care White Metal Corrosion Proofer Name Role Phone Nate Castaneda MD Primary Care Provide r Reason for Visit * Reason Onset Date Comments Appointment Request 03/15/2024 Encounter Details Date Type Department Care Team ([facility] Contact Info) Description 03/15/2024 Telephone [facility] MEDICINE [address] [place], [place] [phone] Nate Castaneda MD 230 [place], [place] [phone] Appointment Request Social History Tobacco Use Types [...] Miscellaneous Notes * Telephone Encounter - Harjinder Mcdonald - 03/15/2024 12:04 PM EST Tc from pt requesting to R/s apt for 03/16. Pt states would like if apt could be for around the End of March of beginning of April. If any questions contact pt at [phone] documented in this encounter Plan of Treatment Upcoming Encounters Date Type Department Care Team (Late st Contact Info) Description 06/02/2024 10:00 AM EDT Office Visit [facility] MED[facility]INE [address] [place] [address] Nate Castaneda MD 230 [place] [address] documented as of this encounter Visit Diagnoses Not on filedocumented in this encounter Additional Health Concerns Assessment Noted Time PHQ-9 Depression Total Score: 5 05/05/19 24 11:43 AM EST documented as of this encounter Care Teams White Metal Corrosion Proofer Relationship Specialty Start Date End Date Nate Castaneda MD [address] [place] [address] PCP - General Internal Medicine 12/15/13 documented as of this encounter
--- OUTSIDE RECORDS SUMMARY | 2024-04-15 14:25 | XMS_ITS | Encounter Summary ---
Author Organization [email or web address] [facility] Address [address] [facility] 7t [place] [address] Care Team Providers Care Registered Account Administrator Name Role Phone Nate Castaneda MD Primary Care Provide r Encounter Details Date Type Department Care Team (Late st Contact Info) Description 07/09/2022 Abstract [facility] MEDICINE [address] [place] [address] [phone] Nate Castaneda MD [address] [place] [address] [phone] Social History Tobacco Use Types Packs/Day Years [...] Description 06/02/2024 10:00 AM EDT Office Visit [facility] MEDICINE 230 [place], [place] [phone] Nate Castaneda MD [address] [place] [address] [phone] documented as of this encounter Procedures Procedure Name Priority Date/Time Associated Diagnosis Comments POCT FECAL IMMUNOCHEMICAL Routine 10/18/2021 3:01 PM EDT documented in this encounter Results * POCT Fecal Immunochemical Test (10/18/2021 3:01 PM EDT) Fecal Immunochemical Test Nonreactive Stool Rectal contents / Unknown 10/18/2021 3:01 PM EDT Narrative Lena Cardoso - 10/18/2021 3:01 PM EDT Negative IFOBT card us Historical Provider MD POINT OF CARE TEST ENTER/ EDIT ORDERABLES Final Result documented in this encounter Visit Diagnoses Not on filedocumented in this encounter Additional Health Concerns Assessment Noted Time PHQ-9 Depression Total Score: 0 04/03/19 23 11:21 AM EST documented as of this encounter Care Teams Registered Account Administrator Relationship Specialty Start Date End Date Nate Castaneda MD [address] [place] [address] PCP - General Internal Medicine 12/15/13 documented as of this encounter
--- OUTSIDE RECORDS SUMMARY | 2024-04-15 14:25 | XMS_ITS | Encounter Summary ---
Author Organization [employer] Address [address] 7t [place] [address] Care Team Providers Care Dial Buffer Name Role Phone Nate Castaneda MD Primary Care Provide r Reason for Visit * Reason Comments Med Refill Encounter Details Date Type Department Care Team ([facility] st Contact Info) Description 03/17/2024 Refill [facility] MEDICINE 230 [place], [place] [phone] Nate Castaneda MD 230 [place] [address] Social History Tobacco Use Types Packs/Day Years [...] Upcoming Encounters Date Type Department Care Team ([facility] st Contact Info) Description 06/02/2024 10:00 AM EDT Office Visit [facility] MEDICINE 230 [place] [address] Nate Castaneda MD [address] [place] [address] documented as of this encounter Visit Diagnoses Not on filedocumented in this encounter Additional Health Concerns Assessment Noted Time PHQ-9 Depression Total Score: 5 05/05/19 24 11:43 AM EST documented as of this encounter Care Teams Dial Buffer Relationship Specialty Start Date End Date Nate Castaneda MD [address] [place] [address] PCP - General Internal Medicine 12/15/13 documented as of this encounter
--- OUTSIDE RECORDS SUMMARY | 2024-04-15 14:25 | XMS_ITS | Clinical Summary ---
Author Organization [employer] Address [address] [facility] [address] [place] [address] Care Team Providers Care Pizza Baker Name Role Phone Nate Castaneda MD Primary [...] obesity (CMS/HCC) ([facility]) INJECT 28 UNITS SUBCUTANEOUSLY AT BEDTIME 15 mL 3 024 Active Dulaglutide (Trulicity) 3 MG/0.5ML solution auto-injectorIn dications:Type 2 diabetes mellitus with obesity (CMS/HCC) ([facility]) Inject 0.5 mL (3 mg) under the skin 1 (one) time per week. 0.5 mL 6 024 Active losartan (Cozaar) 50 MG tablet Take 1 tablet (50 mg) by mouth Once per day. TAKE 1 TABLET BY MOUTH EVERY MORNING 90 tablet 1 024 Active cetirizine (ZyrTEC) 10 MG tabletIndicatio ns:Allergic rhinitis, unspecified seasonality, unspecified trigger TAKE 1 TABLET BY MOUTH EVERY DAY IF NEEDED 90 tablet 025 Active atorvastatin (Lipitor) 40 MG tablet TOME 1 TABLETA POR VIA ORAL TODOS [place] 90 tablet 025 Active traMADol (Ultram) 50 MG tabletIndicatio ns:Chronic low back pain without sciatica, unspecified back pain laterality Take 1 tablet (50 mg) by mouth every 12 (twelve) hours if needed for severe pain for up to 28 days. 56 tablet 025 2024 Active estradiol (Estrace) 0.1 MG/GM vaginal cream 1g vaginally x 14d, then twice weekly thereafter 45 g 2 025 Active metoprolol succinate XL (Toprol-XL) 50 MG 24 hr tabletIndicatio ns:Benign hypertension TOME 1 TABLETA POR VIA ORAL TODOS [...] IF NEEDED 90 tablet 024 2024 Discontinued metoprolol succinate XL (Toprol-XL) 50 MG 24 hr tabletIndicatio ns:Benign hypertension TAKE 1 TABLEY BY MOUTH ONCE DAILY 90 tablet 024 2024 Discontinued traMADol (Ultram) 50 MG tabletIndicatio ns:Chronic low back pain without sciatica, unspecified back pain laterality Take 1 tablet (50 mg) by mouth every 12 (twelve) hours if needed for severe pain for up to 28 days. 56 tablet 025 2024 Discontinued(R eorder (will not trigger notification [...] care of the comprehensive weight management program [facility] 03/06/2022 Assessment & Plan (01/28/2024 [...] with obesity ([facility]) 07/07/2017 Assessment & Plan (01/28/2024 2:19 PM [...] po daily Pt was referred to our hospice educator. but did not come Pt advised [...] po daily Pt was referred to our hospice educator. but did not come Pt advised [...] po daily Pt was referred to our hospice educator. but did not come Pt advised [...] po daily Pt was referred to our hospice educator. but did not come Pt advised [...] po daily Pt was referred to our hospice educator. but did not come Pt advised [...] po daily Pt was referred to our hospice educator. but did not come Pt advised [...] po daily Pt was referred to our hospice educator. but did not come Pt advised [...] po daily Pt was referred to our hospice educator. but did not come Pt advised to: adhere to diabetic diet check your blood sugars regularly check your feet on a daily basis Severe recurrent major depre ssion without psychotic features 07/07/2017 Assessment & Plan (05/05/2023 11:45 AM EST): Doing well She sees a therapist at [facility] her name is Kiera about once a month. and a psychiatrist Dina She is on Prozac 60mg. and Klonopin. Today reports feels good. No suicidal ideation Assessment & Plan (08/21/2022 12:59 PM EDT): Doing well She sees a therapist at [facility] her name is Kiera about once a month. and a psychiatrist Dina She is on Prozac 60mg. and Klonopin. Today reports feels good. No suicidal ideation Assessment & Plan (03/06/2022 11:23 AM EST): Doing well She sees a therapist at [facility] her name is Kiera about once a [...] Encounters Date Type Department Care Team Description 04/09/2024 Refill [facility] [place] [address] Nate Castaneda MD Benign hypertension 04/08/2024 Orders Only [facility] [address] [place] [address] Maral Boyer CNM 04/08/2024 Telephone [facility] [address] [place] [address] Abigail Eng, AMY Med Refill 04/08/2024 Refill [facility] [address] [place] [address] Nate Castaneda MD Chronic low back pain without sciatica, unspecified back pain laterality 04/07/2024 9:30 AM EST Procedure Visit [facility] [place] [address] Maral Boyer CNM Cervical cancer screening (Primary Dx); Vaginal dryness; Cervical polyp 04/07/2024 Travel 03/17/2024 Refill [place] [address] Garrett Hawkins MD Allergic rhinitis, unspecified seasonality, unspecified trigger 03/17/2024 Refill [facility] [place] [address] Nate Castaneda MD 03/15/2024 Telephone [facility] [address] [place] [address] Nate Castaneda MD Appointment Request 03/10/2024 Refill [facility] [place] [address] Nate Castaneda MD Chronic low back pain without sciatica, unspecified back pain laterality 02/10/2024 Refill [facility] [place] [address] Nate Castaneda MD Chronic low back pain without sciatica, unspecified back pain laterality 02/09/2024 [facility]ill [facility] [address] [facility] [place] [address] Nate Castaneda MD 02/08/2024 Refill [facility] [address] [facility] [place] [address] Saumya Epps ANP 01/28/2024 2:00 PM EST Office Visit [facility] [address] [facility] [place] [address] Nate Castaneda MD Type 2 diabetes mellitus with obesity (CMS/HCC) ([facility]) (Primary Dx); Benign hypertension; Preventative health care; Encounter for immunization 01/28/2024 Telephone [facility] [address] [place] [address] Nate Castaneda MD Medication Question 01/28/2024 Travel 01/19/2024 Refill [facility] [address] [facility] [place] [address] Vickie Hayes MD Benign hypertension 01/18/2024 Telephone [facility] [address] [place] [address] Nate Castaneda MD Chart Prep 01/15/2024 10:00 AM EST Clinical Support [facility] [address] [facility] [place] [address] Angela Youssef RN Chronic bilateral low back pain without sciatica 01/15/2024 Travel from Last 3 Months Immunizations Name Administration [...] Description 06/02/2024 10:00 AM EDT Office Visit [facility] [address] [place] [address] Nate Castaneda MD [address] [place] [address] Health Maintenance Due Date Last Done Comments CT Colonography 1960 Colonoscopy 1960 FOBT 1960 Sigmoidoscopy 1960 Diabetes: Foot Exam 1971 Eye Exam 1971 RSV Patients and Patients Aged 60 years or older (1 - Risk 60-74 years 1-dose series) 2021 FIT 10/18/2022 10/18/2021 COVID-19 Vaccine ( season) 2023 12/18/2021, 10/08/2021, 02/11/2021, Additional history exists Diabetes: Hemoglobin A1C 04/29/202401/27/2 024, 11/05/2023, 05/05/2023, Additional history exists Depression Screening 05/05/2024 05/05/2023, 05/05/19 Diabetes: Urine Protein Screening 05/05/2024 05/05/2023, 03/27/2021, 09/08/2019 SDOH Screening 05/05/2024 05/05/2023 Mammogram 09/13/2024 09/14/2023, 07/0 05/2022, 01/21/2021, Additional history exists Alcohol/Substance Use Screening 01/27/2025 01/28/2024 Lipid Panel 02/01/2025 02/02/2024, 11/08, 04/10/2022, Additional history exists Tobacco Screening 04/07/2025 04/07/2024 Colorectal Cancer Screening 12/06/2026 FIT DNA/Cologuard 12/06/2026 12/07/2023 Cervical Cancer Screening 04/07/2029 HPV/Cotest 04/07/2029 12/02/2018 Pap Smear 04/07/2029 04/07/2024, 12/02/2018 DTaP/Tdap/Td Vaccines (2 - Td or Tdap) [...] Procedure Name Priority Date/Time Associated Diagnosis Comments BACTERIAL VAGINOSIS PANEL Routine 04/07/2024 9:46 AM EST Vaginal dryness PAP SMEAR Routine 04/07/2024 9:27 AM EST Cervical cancer screening LIPID PANEL, STANDARD Routine 02/02/2024 8:08 AM [...] MRNA E6/E7 Routine 12/02/2018 10:13 AM EDT from Last 3 Months or Most Recently Relevant to Health Maintenance Results * Bacterial Vaginosis Panel (04/07/2024 9:46 AM EST) TRICHOMONAS VAGINALIS DETECTION BY PCR NOT DETECTED Not Detect [facility] BACTERIAL VAGINOSIS DETECTION BY PCR NEGATIVE Negative [facility] Comment:The BV organism targ ets of the Xpert Xpress MVP test can becommensal in women; Xpert Xpress MVP positive results forbacterial vaginosis should be considered in conjunction withother clinical and patient information to determine thedisease status. Organisms that are not detected by the XpertXpress MVP test have also been reported to be associatedwith BV and aerobic vaginitis.The Xpert Xpress MVP test performance has not been evaluatedin patients under the age of 14. AIRAM GROUP DETECTION BY PCR NOT DETECTED Not Detect [facility] Airam glab krusei PCR NOT DETECTED Not Detect [facility] Swab Vaginal structure / Unknown 04/07/2024 9:46 AM EST 04/07/2024 4:06 PM EST us Maral Boyer CNM LAB MICROBIOLOGY - GENERA L ORDERABLES Final Result [facility] [address] [place] [phone] * Pap Smear (04/07/2024 9:27 AM EST) Swab Cervix uteri structure / Unknown 04/07/2024 9:27 AM EST 04/08/2024 6:30 AM EST Narrative [facility] - 04/15/2024 11:49 AM EST ----- ------- Name: Ramesh GageEunice ? Age/Sex: 64/F ? : 1960 Unit#: [id number] ?? Attend : ?Re04/07/24 ?Status: PRE REF ? Location: HO.LNP ?Disch: ? ----- ------- SPEC : [id number] ? RECD: 04/08/24 ? STATUS: ??SOUT ? REQ NUM: [id number] ? MARGA: 04/07/24 ? SUBM DR: MARAL BOYER CNM ? ENTERED: ??04/08/24 ?SP TYPE: Pap Smr ?OTHR : ? ORDERED: ??Pap Smear ? Interpretation ?? Satisfactory for evaluation. ?? Negative for intraepithelial lesion or malignancy. ? HPV High Risk: ??Negative ? HPV Genotyping 16: ??Negative ?? HPV Genotyping 18: ??Negative ?Clinical Information LMP: Previous PAP test: 2019 NIL/HPV negative Other surgery: Other history: ? Material Received ?? ThinPrep-Cervical ----- ------- Signed (signature on file) RICKIE Haryr (ASCP) 04/15/24 1149 ? ----- ------- ? END OF REPORT ? us Maral Boyer [facility] CYTOLOGY ORDERABLES F inal Result [facility] [address] [place] [address] [phone] * (ABNORMAL) Lipid Panel, Standard (02/02/2024 8:08 AM EST) Triglycerides 82 <150 mg/dL [facility] Comment:Desirable Triglyceri de: less than 150 mg/dLBorderline High Triglyceride 150-199 mg/dLHigh Triglyceride: 200-499 mg/dLVery High Triglyceride: greater than or equal to 5OO mg/dL Cholesterol 122 <200 mg/dL [facility] Comment:Desirable Cholestero l: less than 200 mg/dLBorderline High Cholesterol: 200-239 mg/dLHigh Cholesterol: greater than 239 mg/dL LDL Cholesterol Calculated 74 <100 mg/dL [facility] Comment:Desirable LDL: less than 100 mg/dLNear Optimal/Above Optimal LDL: 110- 129 mg/dLBorderline High LDL: 130-159 mg/dLHigh LDL: 160-189 mg/dLVery High LDL: greater than or equal to 190 mg/dL HDL Cholesterol 32(L) >40 mg/dL [facility] Comment:Desirable HDL: great er than 40 mg/dL Note: This HDL assay may give artificially low results in patients with liver disease. Blood Venous blood specimen / Unknown 02/02/2024 8:08 AM EST 02/02/2024 11:47 AM EST us Nate Mcdonald MD LAB BLOOD ORDERABLES Final Result [facility] [address] [place] [phone] * (ABNORMAL) Basic Metabolic Panel (02/02/2024 8:08 AM EST) Sodium 139 135 - 145 mmol/L [facility] Potassium 4.2 3.3 - 5.1 mmol/L [facility] Chloride 103 96 - 108 mmol/L [facility] Carbon Dioxide 29 22 - 29 mmol/L [facility] Anion Gap 11(L) 12 - 20 [facility] Urea Nitrogen (BUN) 11 9 - 16 mg/dL [facility] Creatinine, Serum 0.68 0.5 - 1.4 mg/dL [facility] Estimated Glomerular Filt Rate >60 [facility] Comment:Chronic Kidney Disea se: Estimated GFR < 60 mL/min/1.70y0Mqutzf Kidney Disease: Estimated GFR < 15 mL/min/1.73m2 Glucose 129(H) 60 - 115 mg/dL [facility] Calcium 9.7 8.4 - 10.2 mg/dL [facility] Blood Venous blood specimen / Unknown 02/02/2024 8:08 AM EST 02/02/2024 11:47 AM EST us Nate Mcdonald MD LAB BLOOD ORDERABLES Final Result [facility] [address] [place] [phone] * (ABNORMAL) POCT HGB A1C (01/28/2024 2:18 PM EST) Hemoglobin A1C 8.3(A) 4.0 - 6.0 % QC Media Lot # [id number] Lot# Expiration Date Blood 01/28/2024 2:18 PM EST us Nate Mcdonald MD POINT OF CARE TEST EN TER/EDIT ORDERABLES Final Result * POCT Glucose (01/28/2024 2:11 PM EST) Glucose Blood, POC 177 60 - 200 mg/dL QC Media Lot # [id number] Lot# Expiration Date 5,025 Blood Capillary blood specimen / Unknown 01/28/2024 2:11 PM EST us Nate Mcdonald MD POINT OF CARE TEST EN TER/EDIT ORDERABLES Final Result * POCT OPHELIA-14 Urine Drug Screen (01/15/2024 10:04 AM EST) Urine Urine specimen obtained by clean catch procedure / Unknown 01/15/2024 10:04 AM EST Narrative Angela Youssef RN - 01/15/2024 10:04 AM EST .UTOX cup Lot#[id number] Exp. 10/26/25 Internal Pass Control UTOX was negative for FENT Nate Mcdonald MD POINT OF CARE TEST EN TER/EDIT ORDERABLES Final Result * Cologuard?? colon cancer screening (12/07/2023 8:45 AM EDT) Pathologist [facility] Cologuard Result Negative Negative 12/12/19 10:54 AM EDT [facility] (CLIA #:[id number]) Comment: NEGATIVE TEST RESULT. A negative Cologuard [...] cancer. ??Following a negative Cologuard result, the [place] Cancer Society and U.S. Multi-Society Task Force screening guidelines recommend a Cologuard re-screening interval of 3 years. References: [employer] Guideline for Colorectal Cancer Screening: https://www.cancer.org/cancer/puorr-vushvl-nsyiza/mhpcymopc-vozlrxbgf-sknzxto/ac s-rec ommendations.html.; [place] RUBIO, Chris SHARMA, Luz Maria LIU, Colorectal Cancer Screening: Recommendations for Physicians and Patients from the U.S. Multi-Society Task Force on Colorectal Cancer Screening , Am J Gastroenterology 2017; 112:6935-1873. TEST DESCRIPTION: Composite algorithmic analysis of stool [...] screened with both Cologuard and colonoscopy. (Roxanne Rivas. et al, N Engl J Med 2014;370(14):1781-0340.) Cologuard may produce a false negative or false positive result (no colorectal cancer or precancerous polyp present at colonoscopy follow up). A negative Cologuard test result does not guarantee the absence of CRC or advanced adenoma (pre-cancer). The current Cologuard screening interval is every 3 years. ([employer] Society and U.S. Multi-Society Task Force). Cologuard performance data in a 10,000 patient pivotal study using colonoscopy as the reference method can be accessed at the following location: www.[employer].com/results. Additional description of the Cologuard test process, warnings and precautions can be found at www.[employer].com. Stool specimen (specimen) 12/07/2023 8:45 AM EDT 12/08/2023 10:45 AM EDT Nate Mcdonald MD LAB MOLECULAR DIAGNOS TICS ORDERABLES Final Result [facility] (CLIA #:[id number]) [address] [place] [address], * BI Mammogram Screening Tomosynthesis Bilateral (09/14/2023 11:03 AM EDT) Anatomical Region Laterality Modality Breast Bilateral Mammography 09/14/2023 11:0 3 AM EDT Narrative 10/11/2023 3:25 PM EDT ? [facility] ? [address] ?[place] [address] ? Mammography Report ? Signed ? Patient: Ramesh GageEuncie ?MR# ?? : [id number] ? : 1960 ?Acct:[id number] ? Age/Sex: 63 / F ?ADM Date: 09/14/23 ? Loc: HO.MAMMO ? Attending Dr: Nate Dominguez MD ? Ordering Physician: Nate Dominguez MD ?Resu ?? lts: 2Benign Findings ? Date of Service: 09/14/23 ?Follow Up: 1 Year From Orig ?? inal Mammogram ? Procedure(s): MM tomosynthesis screening BI ?? Accession Number(s): [id number] ? cc: Nate Dominguez MD ? EXAMINATION: [...] 1522 ? DD/ 1103 ? TD/TT: ? Food Processing Chemist: ? Procedure Note Giorgio Willard - 10/11/2023 [facility] [address] [place] [address] Dr. [place], [place] [address] Mammography Report Signed Patient: Eunice Romano DMR# : [id number] : 1960cct:[id number] Age/Sex: 63 / FADM Date: 09/14/23 Loc: NIKKI Attending Dr: Nate Dominguez MD Ordering Physician: Nate Dominguezu lts: 2Benign Findings Date of Service: 09/14/23Follow Up: 1 Year From [facility] ina Mammogram Procedure(s): MM tomosynthesis screening BI Accession Number(s): [id number] cc: Nate Dominguez MD EXAMINATION: MM SCREENING [...] in OV> 10/11/23 1522 DD/ 1103 TD/TT: Food Processing Chemist: us Nate Mcdonald MD IMG BI PROCEDURES Fin al Result * Albumin, Random Urine W/Creatinine (05/05/2023 12:00 AM EST) Creatinine, Urine 93.58 mg/dL [facility] Microalbumin Urine 6.0 mg/L [facility] Microalbum Creatinine Ratio Ur 6.4 <30 ug/mg cr [facility] Comment:Albumin/Creatinine R atio Reference Ranges: Normal: < 30 ug/mg creatinine Microalbuminuria: 30 - 300 ug/mg creatinineClinical Albuminuria: > 300 ug/mg creatinine Urine (Urine, Random) 05/05/2023 05/05/2023 Nate Mcdonald MD LAB URINE ORDERABLES Final Result [facility] [address] [place] [address] [phone] * Hepatitis C Antibody with Reflex to HCV, RNA, Quantitative, Real-Time PCR (04/10/2022 8:14 AM EST) Hepatitis C Antibody NON-REACT JOHANN NON-REACT JOHANN [facility] [place] [facility] Index <0.02 <1.00 [facility] Comment: HCV antibody was non-reactive. There is no laboratory evidence of HCV infection. In most cases, no further action is required. However, if recent HCV exposure is suspected, a test for HCV RNA (test code 34529) is suggested. For additional information please refer to http://education.Farmigo/faq/NHW93n7 (This link is being provided for informational/ educational purposes only.) Blood Venous blood specimen / Unknown 04/10/2022 8:14 AM EST 04/10/2022 8:14 AM EST Narrative [facility] - 04/10/2022 8:51 PM EST FASTING:YES FASTING: YES Nate Mcdonald MD LAB BLOOD ORDERABLES Final Result Performing Organization Address [facility] Co de Phone Number [facility] [address], [place] [address] [facility] [place] [facility] [address] [facility], ([address]) [place] [address] * HIV-1/2 Antigen and Antibodies, Fourth Generation, with Reflexes (04/10/2022 8:14 AM EST) HIV Antigen/Antibody, 4th Generation NON-REAC TIVE NON-REAC TIVE [facility] Comment: HIV-1 antigen and HIV-1/HIV-2 antibodies were [...] ?? For additional information please refer to http://Lonely Sock.Farmigo/faq/TJB691 (This link is being provided for informational/ educational purposes only.) The performance of this assay has not been clinically validated in patients less than 2 years old. Blood Venous blood specimen / Unknown 04/10/2022 8:14 AM EST 04/10/2022 8:14 AM EST Narrative [facility] - 04/10/2022 8:51 PM EST FASTING:YES FASTING: YES Nate Mcdonald MD LAB BLOOD ORDERABLES Final Result [facility] [address] [place] [address], [place] [address] [facility] [address] [facility], ([address]) [place] [address] * POCT Fecal Immunochemical Test (10/18/2021 3:01 PM EDT) Pathologist [facility] Fecal Immunochemical Test Nonreactive Stool Rectal contents / Unknown 10/18/2021 3:01 PM EDT August Guoba - 10/18/2021 3:01 PM EDT Negative IFOBT card [facility] Provider POINT OF CARE TEST ENTER/ EDIT ORDERABLES Final Result * HPV mRNA E6/E7 (12/02/2018 10:13 AM EDT) HPV mRNA E6/E7 Not Detected NOT DETECTED [facility] Comment: This test was performed using the APTIMA(R) HPV Assay ([employer] This assay detects E6/E7 viral messenger RNA (mRNA) from 14 high-risk HPV types (16,18,31,33,35,39,45,51, 52,56,58,59,66,68). For additional information please refer to: http://education.Notifo.Kwan Mobile/faq/WJK928d4 (This link is being provided for informational/ educational purposes only.) The analytical performance characteristics of this assay have been determined by [employer] [place], [place]. The modifications have not been cleared or approved by the FDA. This assay has been validated pursuant to the CLIA regulations and is used for clinical purposes. Test Performed by [employer] [place], [facility], [address] [place] [address] Nicolas Yepez M.D., Ph.D., Director of Laboratories , CLIA [id number] Please note: ??Effective 11/19/2015, HPV testing will be performed using [employer]'s APTIMA test which targets mRNA. Detecting mRNA instead of DNA, as in older methods, offers significant improvements in specificity. 12/02/2018 10:1 3 AM EDT us Maral Boyer CNM HISTORICAL/NON ORDERABLE LABS Final Result [facility] [address] from Last 3 Months or Most Recently Relevant to Health Maintenance Insurance [facility] C3 Care Teams Pizza Baker Relationship Specialty Start Date End Date Nate Castaneda MD [address] [place] [phone] PCP - General Internal Medicine 12/15/13
--- OUTSIDE RECORDS SUMMARY | 2024-04-15 14:25 | XMS_ITS | Encounter Summary ---
Author Organization [employer] Address [address] [place] [address] Care Team Providers Care Game Producer Name Role Phone Nate Castaneda MD Primary Care Provide r Reason for Visit * Reason Onset Date Comments Med Refill 08/08/2022 Encounter Details Date Type Department Care Team (Late st Contact Info) Description 08/08/2022 Refill [facility] [address] [place] [address] Nate Castaneda MD [address] [place] [address] Chronic low back pain without sciatica, unspecified [...] Description 06/02/2024 10:00 AM EDT Office Visit [facility] [address] [place] [address] Nate Castaneda MD [address] [place] [address] documented as of this encounter Visit Diagnoses Diagnosis Chronic low back pain without sciatica, unspecified back pain laterality documented in this encounter Additional Health Concerns Assessment Noted Time PHQ-9 Depression Total Score: 0 04/03/19 23 11:21 AM EST documented as of this encounter Care Teams Game Producer Relationship Specialty Start Date End Date Nate Castaneda MD [address] [place] [phone] PCP - General Internal Medicine 12/15/13 documented as of this encounter
--- OUTSIDE RECORDS SUMMARY | 2024-04-15 14:25 | XMS_ITS | Encounter Summary ---
Author Organization [employer] Address [address] [place] [address] Care Team Providers Care Geothermal Heat Pump Machinist Name Role Phone Nate Castaneda MD Primary Care Provide r Reason for Visit * Reason Onset Date Comments Med Refill 09/08/2022 Encounter Details Date Type Department Care Team ([facility] st Contact Info) Description 09/08/2022 Telephone [facility] [address] [place], [place] [phone] Nate Castaneda MD [address] [place], [place] [phone] Med Refill Social History Tobacco Use Types [...] Description 06/02/2024 10:00 AM EDT Office Visit [facility] [address] [place] [address] Nate Castaneda MD [address] [place] [address] documented as of this encounter Visit Diagnoses Not on filedocumented in this encounter Additional Health Concerns Assessment Noted Time PHQ-9 Depression Total Score: 0 04/03/19 23 11:21 AM EST documented as of this encounter Care Teams Geothermal Heat Pump Machinist Relationship Specialty Start Date End Date Nate Castaneda MD [address] [place] [address] PCP - General Internal Medicine 12/15/13 documented as of this encounter
--- OUTSIDE RECORDS SUMMARY | 2024-04-15 14:26 | XMS_ITS | Encounter Summary ---
Author Organization [employer] Address [address] 7t [place] [address] Care Team Providers Care Social Problems Specialist Name Role Phone Nate Castaneda MD Primary Care Provide r Reason for Visit * Reason Onset Date Comments Med Refill 08/11/2023 Encounter Details Date Type Department Care Team ([facility] st Contact Info) Description 08/11/2023 Telephone [facility] MEDICINE [address] [place], [place] [phone] Nate Castaneda MD 230 [place], [place] [phone] Med Refill Social History Tobacco Use Types [...] Description 06/02/2024 10:00 AM EDT Office Visit [facility] MEDICINE [address] [place] [address] Nate Castaneda MD [address] [place] [address] documented as of this encounter Visit Diagnoses Not on filedocumented in this encounter Additional Health Concerns Assessment Noted Time PHQ-9 Depression Total Score: 5 05/05/19 24 11:43 AM EST documented as of this encounter Care Teams Social Problems Specialist Relationship Specialty Start Date End Date Nate Castaneda MD 230 [place] [address] PCP - General Internal Medicine 12/15/13 documented as of this encounter
--- OUTSIDE RECORDS SUMMARY | 2024-04-15 14:26 | XMS_ITS | Encounter Summary ---
Author Organization [employer] Address [address] 7[address] [place] [address] Care Team Providers Care Paunch Trimmer Name Role Phone Nate Castaneda MD Primary Care Provide r Reason for Visit * Reason Comments Med Refill Encounter Details Date Type Department Care Team ([facility] st Contact Info) Description 04/09/[address] [facility] MEDICINE [address] [place], [place] [phone] Nate Castaneda MD [address] [place] [address] Benign hypertension Social History Tobacco Use Types Packs/Day Years [...] Description 06/02/2024 10:00 AM EDT Office Visit [facility] MEDICINE [address] [place] [address] Nate Castaneda MD [address] [place] [address] documented as of this encounter Visit Diagnoses Diagnosis Benign hypertension Essential hypertension, benign documented in this encounter Additional Health Concerns Assessment Noted Time PHQ-9 Depression Total Score: 5 05/05/19 24 11:43 AM EST documented as of this encounter Care Teams Paunch Trimmer Relationship Specialty Start Date End Date Nate Castaneda MD 230 [place] [address] PCP - General Internal Medicine 12/15/13 documented as of this encounter
--- OUTSIDE RECORDS SUMMARY | 2024-04-15 14:26 | XMS_ITS | Encounter Summary ---
Author Organization [employer] Address [address] 7[address] [place] [address] Care Team Providers Care Subsurface Augmentee Operator Name Role Phone Nate Castaneda MD Primary Care Provide r Reason for Visit * Reason Onset Date Comments Reschedule 06/02/2023 Encounter Details Date Type Department Care Team ([facility] st Contact Info) Description 06/02/2023 Telephone [facility] MEDICINE 230 [place] [address] Nate Castaneda MD 230 [place], [place] [phone] Reschedule Social History Tobacco Use Types Packs/Day [...] AM EDT Tc from pt requesting r/s DIRECTOR OF PARKS AND RECREATION appt. documented in this encounter Plan of Treatment Upcoming Encounters Date Type Department Care Team (Late st Contact Info) Description 06/02/2024 10:00 AM EDT Office Visit [facility] MEDICINE [address] [place] [address] Nate Castaneda MD [address] [place] [address] documented as of this encounter Visit Diagnoses Not on filedocumented in this encounter Additional Health Concerns Assessment Noted Time PHQ-9 Depression Total Score: 5 05/05/19 24 11:43 AM EST documented as of this encounter Care Teams Subsurface Augmentee Operator Relationship Specialty Start Date End Date aNte Castaneda MD 230 [place], [place] [phone] PCP - General Internal Medicine 12/15/13 documented as of this encounter
--- OUTSIDE RECORDS SUMMARY | 2024-04-15 14:26 | XMS_ITS | Encounter Summary ---
Author Organization [employer] Address [address] 7t [place] [address] Care Team Providers Care Base Remover Name Role Phone Nate Castaneda MD Primary Care Provide r Reason for Visit * Reason Onset Date Comments Med Refill 12/10/2023 Encounter Details Date Type Department Care Team ([facility] st Contact Info) Description 12/10/2023 Telephone [facility] MEDICINE [address] [place] [address] Nate Castaneda MD 230 [place], [place] [phone] Med Refill Social History Tobacco Use Types [...] 50 MG tablet To be sent to: [facility]/pharmacy #[id number] [place] [address] documented in this encounter Plan of Treatment Upcoming Encounters Date Type Department Care Team (Late st Contact Info) Description 06/02/2024 10:00 AM EDT Office Visit [facility] MEDICINE [address] [place] [address] Nate Castaneda MD [address] [place] [address] documented as of this encounter Visit Diagnoses Not on filedocumented in this encounter Additional Health Concerns Assessment Noted Time PHQ-9 Depression Total Score: 5 05/05/19 24 11:43 AM EST documented as of this encounter Care Teams Base Remover Relationship Specialty Start Date End Date Ntae Castaneda MD 230 [place] [address] PCP - General Internal Medicine 12/15/13 documented as of this encounter
--- OUTSIDE RECORDS SUMMARY | 2024-04-15 14:26 | XMS_ITS | Encounter Summary ---
Author Organization [employer] Address [address] 7[address] [place] [address] Care Team Providers Care Automation Qa Lead Name Role Phone Nate Castaneda MD Primary Care Provide r Encounter Details Date Type Department Care Team ([facility] st Contact Info) Description 04/08/2024 Orders Only [facility] MEDICINE [address] [place] [address] Makayla Mcdermott CNM 230 [place] [address] Social History Tobacco Use Types Packs/Day Years [...] Description 06/02/2024 10:00 AM EDT Office Visit [facility] MEDICINE 230 [place] [address] Nate Castaneda MD 230 [place] [address] documented as of this encounter Visit Diagnoses Not on filedocumented in this encounter Additional Health Concerns Assessment Noted Time PHQ-9 Depression Total Score: 5 05/05/19 24 11:43 AM EST documented as of this encounter Care Teams Automation Qa Lead Relationship Specialty Start Date End Date Nate Castaneda MD [address] [place] [phone] PCP - General Internal Medicine 12/15/13 documented as of this encounter
--- OUTSIDE RECORDS SUMMARY | 2024-04-15 14:26 | XMS_ITS | Encounter Summary ---
Author Organization [email or web address] Address [address] [facility] 7t [place] [address] Care Team Providers Care Manager Grocery Name Role Phone Nate Castaneda MD Primary Care Provide r Reason for Visit * Reason Onset Date Comments Med Refill 11/11/2022 Encounter Details Date Type Department Care Team ([facility] st Contact Info) Description 11/11/2022 Telephone [facility] MEDICINE 230 [place] [address] Nate Castaneda MD [address] [place] [address] Med Refill Social History Tobacco Use Types [...] Description 06/02/2024 10:00 AM EDT Office Visit [facility] MEDICINE [address] [place] [address] Nate Castaneda MD [address] [place] [address] documented as of this encounter Visit Diagnoses Not on filedocumented in this encounter Additional Health Concerns Assessment Noted Time PHQ-9 Depression Total Score: 0 04/03/19 23 11:21 AM EST documented as of this encounter Care Teams Manager Grocery Relationship Specialty Start Date End Date Nate Castaneda MD [address] [place], [place] [phone] PCP - General Internal Medicine 12/15/13 documented as of this encounter
--- OUTSIDE RECORDS SUMMARY | 2024-04-15 14:26 | XMS_ITS | Encounter Summary ---
Author Organization [employer] Address [address] 7[address] [place] [address] Care Team Providers Care Musical Therapist Name Role Phone Nate Castaneda MD Primary Care Provide r Reason for Visit * Reason Onset Date Comments Med Refill 09/25/2023 Encounter Details Date Type Department Care Team ([facility] st Contact Info) Description 09/25/2023 Telephone [facility] MEDICINE 230 [place], [place] [phone] Nate Castaneda MD 230 [place], [place] [phone] Med Refill Social History Tobacco Use Types [...] 10:50 AM EDT Zyrtec was sent to [facility] #[id number] on 05/26/23 #90 with 1 refill other medication pended to provider. * Telephone Encounter - Kemal Mayo - 09/25/2023 10:43 AM EDT TC from pt requesting medication refill. Medications needing refill: atorvastatin (Lipitor) 40 MG tablet cetirizine (ZyrTEC) 10 MG tablet metoprolol succinate XL (Toprol-XL) 50 MG 24 hr tablet To be sent to: [facility]/pharmacy #[id number] - [address] documented in this encounter Plan of Treatment Upcoming Encounters Date Type Department Care Team (Late st Contact Info) Description 06/02/2024 10:00 AM EDT Office Visit [facility] MEDICINE 230 [place] [address] Nate Castaneda MD 230 [place], [place] [phone] documented as of this encounter Visit Diagnoses Not on filedocumented in this encounter Additional Health Concerns Assessment Noted Time PHQ-9 Depression Total Score: 5 05/05/19 24 11:43 AM EST documented as of this encounter Care Teams Musical Therapist Relationship Specialty Start Date End Date Nate Castaneda MD [address] [place] [address] PCP - General Internal Medicine 12/15/13 documented as of this encounter
--- OUTSIDE RECORDS SUMMARY | 2024-04-15 14:26 | XMS_ITS | Encounter Summary ---
Author Organization [employer] Address [address] 7t [place] [address] Care Team Providers Care Claims Sorter Name Role Phone Nate Castaneda MD Primary Care Provide r Reason for Visit * Reason Comments Med Refill Encounter Details Date Type Department Care Team ([facility] st Contact Info) Description 03/17/2024 Refill [facility] MEDICINE 230 [place], [place] [phone] Name, MD Garrett [address] [place] [address] Allergic rhinitis, unspecified seasonality, unspecified trigger Social [...] Description 06/02/2024 10:00 AM EDT Office Visit [facility] MEDICINE [address] [place] [address] Nate Castaneda MD [address] [place] [address] documented as of this encounter Visit Diagnoses Diagnosis Allergic rhinitis, unspecified seasonality, unspecified trigger documented in this encounter Additional Health Concerns Assessment Noted Time PHQ-9 Depression Total Score: 5 05/05/19 24 11:43 AM EST documented as of this encounter Care Teams Claims Sorter Relationship Specialty Start Date End Date Nate Castaneda MD 230 [place] [address] PCP - General Internal Medicine 12/15/13 documented as of this encounter
--- OUTSIDE RECORDS SUMMARY | 2024-04-15 14:26 | XMS_ITS | Encounter Summary ---
Author Organization [employer] Address [address] 7t [place] [address] Care Team Providers Care Washing Tub Operator Name Role Phone Nate Castaneda MD Primary Care Provide r Reason for Visit * Reason Onset Date Comments Med Refill 01/12/2023 Encounter Details Date Type Department Care Team ([facility] st Contact Info) Description 01/12/2023 Telephone [facility] MEDICINE 230 [place], [place] [phone] Nate Castaneda MD 230 [place], [place] [phone] Med Refill Social History Tobacco Use Types [...] Description 06/02/2024 10:00 AM EDT Office Visit [facility] MEDICINE 230 [place] [address] Nate Castaneda MD [address] [place] [address] documented as of this encounter Visit Diagnoses Not on filedocumented in this encounter Additional Health Concerns Assessment Noted Time PHQ-9 Depression Total Score: 0 04/03/19 23 11:21 AM EST documented as of this encounter Care Teams Washing Tub Operator Relationship Specialty Start Date End Date Nate Castaneda MD 230 [place] [address] PCP - General Internal Medicine 12/15/13 documented as of this encounter
--- OUTSIDE RECORDS SUMMARY | 2024-04-15 14:26 | XMS_ITS | Encounter Summary ---
Author Organization [employer] Address [address] 7[address] [place] [address] Care Team Providers Care Percussion Tuner Name Role Phone Nate Castaneda MD Primary Care Provide r Reason for Visit * Reason Comments Gynecologic Exam Encounter Details Date Type Department Care Team (Latest Contact Info) Description 04/07/2024 9:30 AM EST Procedure Visit [facility] MEDICINE [address] [place] [address] Makayla Boyer CNM [address] [place] [address] Cervical cancer screening (Primary Dx); Vaginal dryness; [...] in this encounter Progress Notes * Makayla Boyer CNM - 04/07/2024 9:30 AM EST Subjective Patient ID: Eunice Chandler is a 64 y.o. female who presents for pap Pap NIL/HPV neg 11/2018. Last visit with md 2021. Mammogram BIRADS 2, cat b 09/2023. Not with previous AMAB partner for the past 3 years. No new partners. Happy without a partner. Rare stress incontinence with severe coughing only. No other urinary symptoms. Does note some vaginal dryness which has been a [place] [facility] issue. No other vaginal symptoms. No personal [...] kg/m?? Physical Exam Exam conducted with a contact lens flashing puncher present (Makayla Boyer CNM). Constitutional: Appearance: Normal appearance. Chest: Breasts: [...] new sexual partners. documented in this encounter Miscellaneous Notes * Result Encounter Note - Makayla Boyer CNM - 04/07/2024 9:30 AM EST Please let Eunice know her vaginal testing showed no infection. We had talked about trying a hormonal cream to help with vaginal dryness. Would she like me to send in rx? Thanks! * Result Encounter Note - Makayla Boyer CNM - 04/07/2024 9:30 AM EST Please let Eunice know her pap was normal, HPV negative, which is good news. Repeat 5 years. Thanks! documented in this encounter Plan of Treatment Upcoming Encounters Date Type Department Care Team (Late st Contact Info) Description 06/02/2024 10:00 AM EDT Office Visit [facility] MEDICINE [address] [place] [address] Nate Castaneda MD 230 [place] [address] documented as of this encounter Procedures Procedure Name Priority Date/Time Associated Diagnosis Comments BACTERIAL VAGINOSIS PANEL Routine 04/07/2024 9:46 AM EST Vaginal dryness PAP SMEAR Routine 04/07/2024 9:27 AM EST Cervical cancer screening documented in this encounter Results * Bacterial Vaginosis Panel (04/07/2024 9:46 AM EST) TRICHOMONAS VAGINALIS DETECTION BY PCR NOT DETECTED Not Detect [facility] BACTERIAL VAGINOSIS DETECTION BY PCR NEGATIVE Negative [facility] Comment:The BV organism targ ets of [...] DETECTION BY PCR NOT DETECTED Not Detect [facility] Airam glab krusei PCR NOT DETECTED Not Detect [facility] Swab Vaginal structure / Unknown 04/07/2024 9:46 AM EST 04/07/2024 4:06 PM EST us Makayla [facility] MICROBIOLOGY - GENERA L ORDERABLES Final Result Performing Organization Address City/State/[facility] Co de Phone Number [facility] [address] [place] [phone] * Pap Smear (04/07/2024 9:27 AM EST) Swab Cervix uteri structure / Unknown 04/07/2024 9:27 AM EST 04/08/2024 6:30 AM EST Narrative [facility] - 04/15/2024 11:49 AM EST ----- ------- Name: Ramesh GageEunice Karolyn ? Age/Sex: 64/F ? : 1960 Unit#: [id number] ?? Attend Dr: ?Re04/07/24 ?Status: PRE REF ? Location: HO.LNP ?Disch: ? ----- ------- SPEC : [id number] ? RECD: 04/08/24 ? STATUS: ??SOUT ? REQ NUM: [id number] ? MARGA: 04/07/24 ? SUBM DR: MAKAYLA BOYER CNM ? ENTERED: ??04/08/24 ?SP TYPE: Pap Smr ?OTHR DR: ? ORDERED: ??Pap Smear ? Interpretation ?? Satisfactory for evaluation. ?? Negative for intraepithelial lesion or malignancy. ? HPV High Risk: ??Negative ? HPV Genotyping 16: ??Negative ?? HPV Genotyping 18: ??Negative ?Clinical Information LMP: Previous PAP test: 2019 NIL/HPV negative Other surgery: Other history: ? Material Received ?? ThinPrep-Cervical ----- ------- Signed (signature on file) RICKIE Harry (ASCP) 04/15/24 1149 ? ----- ------- ? END OF REPORT ? us Makayla Boyer [facility] CYTOLOGY ORDERABLES F inal Result [facility] [address] [place] [address] [phone] documented in this encounter Visit Diagnoses Diagnosis Cervical cancer screening- Primary Screening for malignant neoplasm of the cervix Vaginal dryness Postmenopausal atrophic vaginitis Cervical polyp Mucous polyp of cervix documented in this encounter Additional Health Concerns Assessment Noted Time PHQ-9 Depression Total Score: 5 02/27/20 24 11:43 AM EST documented as of this encounter Care Teams Percussion Tuner Relationship Specialty Start Date End Date Nate Castaneda MD [address] [place] [phone] PCP - General Internal Medicine 12/15/13 documented as of this encounter
--- OUTSIDE RECORDS SUMMARY | 2024-04-15 14:26 | XMS_ITS | Encounter Summary ---
Author Organization [facility] Address [address] [facility] 7t [place] [address] Care Team Providers Care Vice President Regulatory Name Role Phone Nate Castaneda MD Primary Care Provide r Encounter Details Date Type Department Care Team (Late st Contact Info) Description 01/23/2022 Abstract [facility] MEDICINE [address] [place] [address] ProviderMario MD Social History Tobacco Use Types [...] Description 06/02/2024 10:00 AM EDT Office Visit [facility] MEDICINE [address] [place] [phone] Nate Castaneda MD [address] [place] [address] documented as of this encounter Procedures Procedure Name Priority Date/Time Associated Diagnosis Comments HEMOGLOBIN A1C Routine 10/08/2021 MAMMOGRAPHY Routine 01/21/2021 PAP/HPV Routine 12/02/2018 documented in this encounter Results * (ABNORMAL) Hemoglobin A1c (10/08/2021) Hemoglobin A1C 6.2(A) 4.0 - 6.0 % Blood Venous blood specimen / Unknown Historical Provider LAB BLOOD ORDERABLES Zunilda l Result * Mammography (01/21/2021) Mammogram Bi-Rads 2 Anatomical Region Laterality Modality Other [facility] Provider HEALTH MAINTENANCE Final Result * Pap Smear (12/02/2018) Pap smear NIL [facility] Provider HEALTH MAINTENANCE Final Result documented in this encounter Visit Diagnoses Not on filedocumented in this encounter Care Teams Vice President Regulatory Relationship Specialty Start Date End Date Nate Castaneda MD [address] [place] [phone] PCP - General Internal Medicine 12/15/13 documented as of this encounter
--- OUTSIDE RECORDS SUMMARY | 2024-04-15 14:26 | XMS_ITS | Encounter Summary ---
Author Organization [employer] Address [address] [place] [address] Care Team Providers Care Raw Cheese Worker Name Role Phone Nate Castaneda MD Primary Care Provide r Reason for Visit * Reason Onset Date Comments Med Refill 04/08/2024 Encounter Details Date Type Department Care Team ([facility] st Contact Info) Description 04/08/2024 Telephone [facility] MEDICINE [address] [place], [place] [phone] Abigail Eng RN Med Refill Social History Tobacco Use Types [...] encounter Miscellaneous Notes * Telephone Encounter - Abigail Eng RN - 04/08/2024 11:25 AM EST Telephone call returned to patient in regards to below message. Advised patient touse 1 g (about a finger tip worth) nightly x 2 weeks, then that same amount twice a week on nonconsecutive days ongoing after that. Advised patient if any questions to call us and it might take a few months before shenotices a difference which is normal. Patient verbalized understanding and denied having any further questions or concerns at this time. Patient to follow up as needed. * Telephone Encounter - Makayla Mcdermott CNM - 04/08/2024 11:24 AM EST Thanks - rx sent in. She should use 1 g (about a finger tip worth) nightly x 2 weeks, then that same amount twice a week on nonconsecutive days ongoing after that. * Telephone Encounter - Abigail Eng RN - 04/08/2024 11:20 AM EST Telephone call returned to patient in regards to below message. Patient stating would like cream. Advised would send message to provider and it would be sent to her pharmacy of choice--[facility] [address]. Patient verbalized understanding and denied having any further questions or concerns at this time. Patient to follow up as needed. * Telephone Encounter - Abigail Eng RN - 04/08/2024 11:20 AM EST ----- Message from Makayla Mcdermott sent at 04/08/2024 11:18 AM EST ----- Please let Eunice know her vaginal testing showed no infection. We had talked about trying a hormonal cream to help with vaginal dryness. Would she like me to send in rx? Thanks! documented in this encounter Plan of Treatment Upcoming Encounters Date Type Department Care Team (Late st Contact Info) Description 06/02/2024 10:00 AM EDT Office Visit [facility] MEDICINE [address] [place] [phone] Nate Castaneda MD [address] [place] [phone] documented as of this encounter Visit Diagnoses Not on filedocumented in this encounter Additional Health Concerns Assessment Noted Time PHQ-9 Depression Total Score: 5 05/05/19 24 11:43 AM EST documented as of this encounter Care Teams Raw Cheese Worker Relationship Specialty Start Date End Date Nate Castaneda MD [address] [place] [phone] PCP - General Internal Medicine 12/15/13 documented as of this encounter
--- OUTSIDE RECORDS SUMMARY | 2024-04-15 14:26 | XMS_ITS | Encounter Summary ---
Author Organization [employer] Address [address] [place] [address] Care Team Providers Care Hand Mexican Food Maker Name Role Phone Nate Castaneda MD Primary Care Provide r Reason for Visit * Reason Onset Date Comments Med Refill 04/08/2024 Encounter Details Date Type Department Care Team (Late st Contact Info) Description 04/08/2024 Refill [facility] MEDICINE [address] [place] [address] Nate Castaneda MD [address] [place], [place] [phone] Chronic low back pain without sciatica, unspecified [...] encounter Miscellaneous Notes * Telephone Encounter - Jemma Copeland - 04/11/2024 8:52 AM EST Tc from pt requesting status of medication traMADol (Ultram) 50 MG tablet * Telephone Encounter - Jemma Copeland - 04/08/2024 11:15 AM EST TC from pt requesting medication refill. Medications needing refill : traMADol (Ultram) 50 MG tablet To be sent to: [facility]/pharmacy #[id number] documented in this encounter Plan of Treatment Upcoming Encounters Date Type Department Care Team (Late st Contact Info) Description 06/02/2024 10:00 AM EDT Office Visit [facility] MEDICINE [address] [place] [address] Nate Castaneda MD [address] [place] [address] documented as of this encounter Visit Diagnoses Diagnosis Chronic low back pain without sciatica, unspecified back pain laterality documented in this encounter Additional Health Concerns Assessment Noted Time PHQ-9 Depression Total Score: 5 05/05/19 24 11:43 AM EST documented as of this encounter Care Teams Hand Mexican Food Maker Relationship Specialty Start Date End Date Nate Castaneda MD [address] [place] [address] PCP - General Internal Medicine 12/15/13 documented as of this encounter
--- OUTSIDE RECORDS SUMMARY | 2024-04-15 14:26 | XMS_ITS | Encounter Summary ---
Author Organization [employer] Address [address] [place] [address] Care Team Providers Care Painter Ordnance Name Role Phone Nate Castaneda MD Primary Care Provide r Reason for Visit * Reason Onset Date Comments Reschedule 04/29/2023 Encounter Details Date Type Department Care Team ([facility] st Contact Info) Description 04/29/2023 Telephone [facility] MEDICINE [address] [place] [address] Nate Castaneda MD [address] [place], [place] [phone] Reschedule Social History Tobacco Use Types Packs/Day [...] Tc from pt requesting to r/s 05/01 PAPER INSERTER 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 Please contact pt at [phone] (Bolivian) documented in this encounter Plan of Treatment Upcoming Encounters Date Type Department Care Team (Late st Contact Info) Description 06/02/2024 10:00 AM EDT Office Visit [facility] MEDICINE [address] [place] [address] Nate Castaneda MD [address] [place] [address] documented as of this encounter Visit Diagnoses Not on filedocumented in this encounter Additional Health Concerns Assessment Noted Time PHQ-9 Depression Total Score: 0 04/03/19 23 11:21 AM EST documented as of this encounter Care Teams Painter Ordnance Relationship Specialty Start Date End Date Nate Castaneda MD [address] [place] [address] PCP - General Internal Medicine 12/15/13 documented as of this encounter
--- OUTSIDE RECORDS SUMMARY | 2024-04-15 14:26 | XMS_ITS | Encounter Summary ---
Author Organization [employer] Address [address] 7[address] [place] [address] Care Team Providers Care Product Safety Administrator Name Role Phone Nate Castaneda MD Primary Care Provide r Reason for Visit * Reason Onset Date Comments Med Refill 11/10/2023 Encounter Details Date Type Department Care Team ([facility] st Contact Info) Description 11/10/2023 Telephone [facility] MEDICINE [address] [place], [place] [phone] Nate Castaneda MD [address] [place], [place] [phone] Med Refill Social History Tobacco Use Types [...] 10:00 AM EDT Office Visit [facility] MEDICINE [address] [place] [address] Nate Castaneda MD [address] [place] [address] documented as of this encounter Visit Diagnoses Not on filedocumented in this encounter Additional Health Concerns Assessment Noted Time PHQ-9 Depression Total Score: 5 05/05/19 24 11:43 AM EST documented as of this encounter Care Teams Product Safety Administrator Relationship Specialty Start Date End Date Nate Castaneda MD [address] [place] [address] PCP - General Internal Medicine 12/15/13 documented as of this encounter
--- OUTSIDE RECORDS SUMMARY | 2024-04-15 14:26 | XMS_ITS | Encounter Summary ---
Author Organization [employer] Address [address] 7[address] [place] [address] Care Team Providers Care Computer Operator Name Role Phone Nate Castaneda MD Primary Care Provide r Reason for Visit * Reason Onset Date Comments Med Refill 12/08/2022 Encounter Details Date Type Department Care Team ([facility] st Contact Info) Description 12/08/2022 Telephone [facility] MEDICINE [address] [place] [address] Nate Castaneda MD [address] [place], [place] [phone] Med Refill Social History Tobacco Use Types [...] Description 06/02/2024 10:00 AM EDT Office Visit [facility] MEDICINE [address] [place] [address] Nate Castaneda MD [address] [place] [address] documented as of this encounter Visit Diagnoses Not on filedocumented in this encounter Additional Health Concerns Assessment Noted Time PHQ-9 Depression Total Score: 0 04/03/19 23 11:21 AM EST documented as of this encounter Care Teams Computer Operator Relationship Specialty Start Date End Date Nate Castaneda MD [address] [place] [address] PCP - General Internal Medicine 12/15/13 documented as of this encounter
--- OUTSIDE RECORDS SUMMARY | 2024-04-15 14:26 | XMS_ITS | Encounter Summary ---
Author Organization [employer] Address [address] 7[address] [place] [address] Care Team Providers Care Commissioner Of Relocation Services Name Role Phone Nate Castaneda MD Primary Care Provide r Reason for Visit * Reason Onset Date Comments Med Refill 09/08/2023 Encounter Details Date Type Department Care Team ([facility] st Contact Info) Description 09/08/2023 Telephone [facility] MEDICINE [address] [place], [place] [phone] Nate Castaneda MD [address] [place], [place] [phone] Med Refill Social History Tobacco Use Types [...] MG/0.5ML solution pen-injector To be sent to: [facility]/PHARMACY #[id number] [place] [address] documented in this encounter Plan of Treatment Upcoming Encounters Date Type Department Care Team (Late st Contact Info) Description 06/02/2024 10:00 AM EDT Office Visit [facility] MEDICINE [address] [place], [place] [phone] Nate Castaneda MD [address] [place] [address] documented as of this encounter Visit Diagnoses Not on filedocumented in this encounter Additional Health Concerns Assessment Noted Time PHQ-9 Depression Total Score: 5 05/05/19 24 11:43 AM EST documented as of this encounter Care Teams Commissioner Of Relocation Services Relationship Specialty Start Date End Date Nate Castaneda MD [address] [place] [id number] PCP - General Internal Medicine 12/15/13 documented as of this encounter
--- OUTSIDE RECORDS SUMMARY | 2024-04-15 14:26 | XMS_ITS | Encounter Summary ---
Author Organization [employer] Address [address] [place] [address] Care Team Providers Care Scientific Specialist Name Role Phone Nate Castaneda MD Primary Care Provide r Reason for Visit * Reason Onset Date Comments Med Refill 04/13/2023 Encounter Details Date Type Department Care Team ([facility] st Contact Info) Description 04/13/2023 Telephone [facility] MEDICINE [address] [place], [place] [phone] Nate Castaneda MD [address] [place], [place] [phone] Med Refill Social History Tobacco Use Types [...] MG tablet To be sent to: [facility]/pharmacy #[id number] documented in this encounter Plan of Treatment Upcoming Encounters Date Type Department Care Team (Late st Contact Info) Description 06/02/2024 10:00 AM EDT Office Visit [facility] MEDICINE [address] [place] [address] Nate Castaneda MD [address] [place] [address] documented as of this encounter Visit Diagnoses Not on filedocumented in this encounter Additional Health Concerns Assessment Noted Time PHQ-9 Depression Total Score: 0 04/03/19 23 11:21 AM EST documented as of this encounter Care Teams Scientific Specialist Relationship Specialty Start Date End Date Nate Castaneda MD [address] [place] [address] PCP - General Internal Medicine 12/15/13 documented as of this encounter
--- OUTSIDE RECORDS SUMMARY | 2024-04-15 14:26 | XMS_ITS | Encounter Summary ---
Author Organization [employer] Address [address] [place] [address] Care Team Providers Care Household Appliances Salesperson Name Role Phone Nate Castaneda MD Primary Care Provide r Reason for Visit * Reason Onset Date Comments Appointment Request 10/13/2023 Encounter Details Date Type Department Care Team ([facility] Contact Info) Description 10/13/2023 Telephone [facility] MEDICINE 230 [place], [place] [phone] Nate Castaneda MD [address] [place], [place] [phone] Appointment Request Social History Tobacco Use Types [...] * Telephone Encounter - Franco Bland - 10/13/2023 10:14 AM EDT Tc from pt requesting to r/s group pain management appt scheduled for 10/20/23 @ 11am appt was cancelled. Please contact at [phone] [place] documented in this encounter Plan of Treatment Upcoming Encounters Date Type Department Care Team (Late st Contact Info) Description 06/02/2024 10:00 AM EDT Office Visit [facility] MEDICINE [address] [place] [address] Nate Castaneda MD [address] [place] [address] documented as of this encounter Visit Diagnoses Not on filedocumented in this encounter Additional Health Concerns Assessment Noted Time PHQ-9 Depression Total Score: 5 05/05/19 24 11:43 AM EST documented as of this encounter Care Teams Household Appliances Salesperson Relationship Specialty Start Date End Date Nate Castaneda MD [address] [place] [address] PCP - General Internal Medicine 12/15/13 documented as of this encounter
--- OUTSIDE RECORDS SUMMARY | 2024-04-15 14:26 | XMS_ITS | Encounter Summary ---
Author Organization [employer] Address [address] [place] [address] Care Team Providers Care Tube Knitter Name Role Phone Nate Castaneda MD Primary Care Provide r Reason for Visit * Reason Onset Date Comments Med Refill 09/09/2023 Encounter Details Date Type Department Care Team ([facility] st Contact Info) Description 09/09/2023 Telephone [facility] MEDICINE [address] [place], [place] [phone] Nate Castaneda MD [address] [place], [place] [phone] Med Refill Social History Tobacco Use Types [...] 50 MG tablet To be sent to: [facility]/pharmacy #[id number] [place] [address] - [address] [place] [address] documented in this encounter Plan of Treatment Upcoming Encounters Date Type Department Care Team (Late st Contact Info) Description 06/02/2024 10:00 AM EDT Office Visit [facility] MEDICINE [address] [place] [address] Nate Castaneda MD [address] [place] [address] documented as of this encounter Visit Diagnoses Not on filedocumented in this encounter Additional Health Concerns Assessment Noted Time PHQ-9 Depression Total Score: 5 05/05/19 24 11:43 AM EST documented as of this encounter Care Teams Tube Knitter Relationship Specialty Start Date End Date Nate Castaneda MD [address] [place], [place] [phone] PCP - General Internal Medicine 12/15/13 documented as of this encounter
--- OUTSIDE RECORDS SUMMARY | 2024-04-15 14:26 | XMS_ITS | Encounter Summary ---
Author Organization [employer] Address [address] [place] [address] Care Team Providers Care Insurance Loss Adjuster Name Role Phone Nate Castaneda MD Primary Care Provide r Reason for Visit * Reason Onset Date Comments Med Refill 12/23/2023 Encounter Details Date Type Department Care Team ([facility] st Contact Info) Description 12/23/[address] [facility] MEDICINE [address] [place] [address] Nate Castaneda MD [address] [place], [place] [phone] Med Refill Social History Tobacco Use Types [...] 40 MG tablet To be sent to: [facility]/pharmacy #[id number] [place] [address] documented in this encounter Plan of Treatment Upcoming Encounters Date Type Department Care Team (Late st Contact Info) Description 06/02/2024 10:00 AM EDT Office Visit [facility] MEDICINE [address] [place] [address] Nate Castaneda MD [address] [place] [address] documented as of this encounter Visit Diagnoses Not on filedocumented in this encounter Additional Health Concerns Assessment Noted Time PHQ-9 Depression Total Score: 5 05/05/19 24 11:43 AM EST documented as of this encounter Care Teams Insurance Loss Adjuster Relationship Specialty Start Date End Date Nate Castaneda MD [address] [place] [address] PCP - General Internal Medicine 12/15/13 documented as of this encounter
[2024-04-18 10:16] LABS: HPV Genotype 16 Negative (Negative); HPV Genotype 18 Negative (Negative); HPV High Risk Negative (Negative)
== END 2024-04-07 00:01 | disposition home or self-care (01) ==
LOC: HO.LNP
PROVIDERS: Visit Provider Advanced Practice Midwife
DX: N89.8 Other specified noninflammatory disorders of vagina (principal); Z12.4 Encounter for screening for malignant neoplasm of cervix
CPT/HCPCS: 87626; 88175

== ENCOUNTER 2024-04-07 16:05 | Outpatient (REF) | payer MEDICAID, SELFPAY ==
--- OUTSIDE RECORDS SUMMARY | 2024-04-07 19:32 | XMS_ITS | Encounter Summary ---
Author Organization [employer] Address [address] [place] [address] Care Team Providers Care Director Of Parks And Recreation Name Role Phone Nate Castaneda MD Primary Care Provide r Reason for Visit * Reason Onset Date Comments Med Refill 09/09/2023 Encounter Details Date Type Department Care Team ([facility] st Contact Info) Description 09/09/2023 Telephone [facility] [address] [place], [place] [phone] Nate Castaneda MD [address] [place], [place] [phone] Med Refill Social History Tobacco Use Types Packs/Day Years Used Date Smoking Tobacco: Never Passive Smoke Exposure: Never Smokeless Tobacco: Never Depression Answer Date Recorded Patient Health Questionnaire-9 Score 5 05/05/2023 Patient Health Questionnaire-9 Score 5 05/05/2023 Last PHQ-9: Questionnaire Data Not on file 0 05/05/2023 Housing Stability Answer Date Recorded What is your housing situation today? I have bull leos 05/05/[address] you li ve. Do you have problems with any of the following? None of the above 05/05/2023 Food Insecurity Answer Date Recorded Within the past 12 months, y ou worried that your food would run out before you got money to buy more: Never True 05/05/2023 Within the past 12 months,th e food you bought just didn't last and you didn't have enough money to get more: Never True Transportation Answer Date Recorded In the past 12 months, has l ack of transportation kept you from medical appts, meetings, work or from getting things needed for daily living? No 05/05/2023 Utilities Answer Date Recorded In the past 12 months, has t he electric, gas, oil or water company threatened to shut off services in your home? No 05/05/2023 Depression Answer Date Recorded Patient Health Questionnaire-2 Score 1 05/05/2023 Comments Unknown Sex and Gender Information Value Date Recorded Sex Assigned at Female 01/06/2022 10:18 AM EDT Legal Sex Female 10:18 AM EDT Gender Identity Female 01/06/2022 10:18 AM EDT Sexual Orientation Don't know 01/06/2022 10 :18 AM EDT documented as of this encounter Miscellaneous Notes * Telephone Encounter - Mimi Hassan - 09/09/2023 2:34 PM EDT TC from pt requesting medication refill. Medications needing refill : traMADol (Ultram) 50 MG tablet To be sent to: [facility]/pharmacy #[id number] [place] [address] documented in this encounter Plan of Treatment Upcoming Encounters Date Type Department Care Team (Late st Contact Info) Description 04/15/2024 9:30 AM EST Clinical Support [facility] [address] [place] [phone] Angela Youssef RN [address] [place] [address] 06/02/2024 10:00 AM EDT Office Visit [facility] [address] [place] [phone] Nate Castaneda MD [address] [place] [phone] documented as of this encounter Visit Diagnoses Not on filedocumented in this encounter Additional Health Concerns Assessment Noted Time PHQ-9 Depression Total Score: 5 05/05/19 24 11:43 AM EST documented as of this encounter Care Teams Director Of Parks And Recreation Relationship Specialty Start Date End Date Nate Castaneda MD [address] [place] [phone] PCP - General Internal Medicine 12/15/13 documented as of this encounter
--- OUTSIDE RECORDS SUMMARY | 2024-04-07 19:32 | XMS_ITS | Encounter Summary ---
Author Organization [employer] Address [address] [place] [address] Care Team Providers Care Gore Seamer Name Role Phone Nate Castaneda MD Primary Care Provide r Reason for Visit * Reason Onset Date Comments Appointment Request 03/15/2024 Encounter Details Date Type Department Care Team ([facility] Contact Info) Description 03/15/[address] [facility] [address] [place], [place] [phone] Nate Castaneda MD [address] [place], [place] [phone] Appointment Request Social History Tobacco Use Types Packs/Day Years [...] Recorded Patient Health Questionnaire-2 Score 1 05/05/2023 Internet Access Answer Date Recorded Internet Access Q1 Yes 11/09/2023 Internet Access Q2 Not on file 11/09/2023 Comments Unknown Sex and Gender Information Value Date Recorded Sex Assigned at Female 01/06/2022 10:18 AM EDT Legal Sex Female 10:18 AM EDT Gender Identity Female 01/06/2022 10:18 AM EDT Sexual Orientation Don't know 01/06/2022 10 :18 AM EDT documented as of this encounter Miscellaneous Notes * Telephone Encounter - Harjinder Yangnandez - 03/15/2024 12:04 PM EST Tc from pt requesting to R/s apt for 03/16. Pt states would like if apt could be for around the End of March of beginning of April. If any questions contact pt at [phone] documented in this encounter Plan of Treatment Upcoming Encounters Date Type Department Care Team (Late st Contact Info) Description 04/15/2024 9:30 AM EST Clinical Support [facility] [address] [place] [phone] Angela Youssef RN [address] [place] [address] 06/02/2024 10:00 AM EDT Office Visit [facility] [address] [place] [phone] Nate Castaneda MD [address] [place] [phone] documented as of this encounter Visit Diagnoses Not on filedocumented in this encounter Additional Health Concerns Assessment Noted Time PHQ-9 Depression Total Score: 5 05/05/19 24 11:43 AM EST documented as of this encounter Care Teams Gore Seamer Relationship Specialty Start Date End Date Nate Castaneda MD [address] [place] [phone] PCP - General Internal Medicine 12/15/13 documented as of this encounter
--- OUTSIDE RECORDS SUMMARY | 2024-04-07 19:32 | XMS_ITS | Encounter Summary ---
Author Organization [employer] Address [address] [place] [address] Care Team Providers Care Avionics Systems Technician Name Role Phone Nate Castaneda MD Primary Care Provide r Reason for Visit * Reason Comments Med Refill Encounter Details Date Type Department Care Team ([facility] st Contact Info) Description 03/17/[address] [facility] [address] [place], [place] [phone] Name, MD Garrett [address] [place] [address] Allergic rhinitis, unspecified seasonality, unspecified trigger Social History Tobacco Use Types Packs/Day Years [...] AM EDT documented as of this encounter Plan of Treatment Upcoming Encounters Date Type Department Care Team (Late st Contact Info) Description 04/15/2024 9:30 AM EST Clinical Support [facility] [address] [place] [phone] Angela Youssef RN [address] [place] [address] 06/02/2024 10:00 AM EDT Office Visit [facility] [address] [place] [phone] Nate Castaneda MD [address] [place] [phone] documented as of this encounter Visit Diagnoses Diagnosis Allergic rhinitis, unspecified seasonality, unspecified trigger documented in this encounter Additional Health Concerns Assessment Noted Time PHQ-9 Depression Total Score: 5 05/05/19 24 11:43 AM EST documented as of this encounter Care Teams Avionics Systems Technician Relationship Specialty Start Date End Date Nate Castaneda MD [address] [place] [phone] PCP - General Internal Medicine 12/15/13 documented as of this encounter
--- OUTSIDE RECORDS SUMMARY | 2024-04-07 19:32 | XMS_ITS | Encounter Summary ---
Author Organization [employer] Address [address] 7t [place] [address] Care Team Providers Care Social Service Coordinator Name Role Phone Nate Castaneda MD Primary Care Provide r Reason for Visit * Reason Onset Date Comments Med Refill 11/10/2023 Encounter Details Date Type Department Care Team ([facility] st Contact Info) Description 11/10/2023 Telephone [facility] MED[facility]INE [address] [place], [place] [phone] Nate Castaneda MD 230 [place], [place] [phone] Med Refill Social History Tobacco Use Types [...] encounter Miscellaneous Notes * Telephone Encounter - Franco Bland - 11/10/2023 11:06 AM EDT Tc from pt requesting a refill for traMADol (Ultram) 50 MG tablet documented in this encounter Plan of Treatment Upcoming Encounters Date Type Department Care Team (Late st Contact Info) Description 04/15/2024 9:30 AM EST Clinical Support [address] [address] Angela Youssef RN 505 [place] [address] 06/02/2024 10:00 AM EDT Office Visit [facility] MEDICINE [address] [place] [address] Nate Castaneda MD [address] [place] [address] documented as of this encounter Visit Diagnoses Not on filedocumented in this encounter Additional Health Concerns Assessment Noted Time PHQ-9 Depression Total Score: 5 05/05/19 24 11:43 AM EST documented as of this encounter Care Teams Social Service Coordinator Relationship Specialty Start Date End Date Nate Castaneda MD [address] [place] [address] PCP - General Internal Medicine 12/15/13 documented as of this encounter
--- OUTSIDE RECORDS SUMMARY | 2024-04-07 19:32 | XMS_ITS | Encounter Summary ---
Author Organization [employer] Address [address] 7t [place] [address] Care Team Providers Care It Service Technician Name Role Phone Nate Castaneda MD Primary Care Provide r Reason for Visit * Reason Comments Gynecologic Exam Encounter Details Date Type Department Care Team (Latest Contact Info) Description 04/07/2024 9:30 AM EST Procedure Visit [facility] MEDICINE [address] [place] [address] Makayla Mcdermott CNM [address] [place] [address] Cervical cancer screening (Primary Dx); Vaginal dryness; Cervical polyp Social History Tobacco Use Types Packs/Day Years [...] Access Q2 Not on file 11/09/2023 Comments No Sex and Gender Information Value Date Recorded Sex Assigned at Female 01/06/2022 10:18 AM EDT Legal Sex Female 10:18 AM EDT Gender Identity Female 01/06/2022 10:18 AM EDT Sexual Orientation Don't know 01/06/2022 10 :18 AM EDT documented as of this encounter Last Filed Vital Signs Vital Sign Reading Time Taken Comments Blood Pressure 148/76 04/07/2024 9:22 AM EST Pulse 79 04/07/2024 9:22 AM EST Temperature 36.4 ??C (97.6 ??F) 04/07/2024 9:22 AM ES T Respiratory Rate 16 04/07/2024 9:22 AM EST Oxygen Saturation 98% 04/07/2024 9:22 AM EST Inhaled Oxygen Concentration - - Weight 90.4 kg (199 lb 3.2 oz) 04/07/2024 9:22 A M EST Height 154.9 cm (5' 1 ) 04/07/2024 9:22 AM EST Body Mass Index 37.64 04/07/2024 9:22 AM EST documented in this encounter Progress Notes * Makayla Mcdermott CNM - 04/07/2024 9:30 AM EST Subjective Patient ID: Eunice Chandler is a 64 y.o. female who presents for pap Pap NIL/HPV neg 11/2018. Last visit with ky 2021. Mammogram BIRADS 2, cat b 09/2023. Not with previous AMAB partner for the past 3 years. No new partners. Happy without a partner. Rare stress incontinence with severe coughing only. No other urinary symptoms. Does note some vaginal dryness which has been a assisted issue. No other vaginal symptoms. No personal fracture. No parental hip fracture. Patient seen in conjunction with Abigail Eng, [employer] student. I was present for and confirmed all pertinent elements in the history, exam, assessment of the patient, and the plan of care, and agree with all findings. Review of Systems Genitourinary: Negative for dyspareunia, dysuria, frequency, genital sores, hematuria, menstrual problem, pelvic pain, urgency, vaginal bleeding, vaginal discharge and vaginal pain. No abnormal pap, no abnormal bleeding, no breast pain, no breast mass, no nipple discharge Objective BP (!) 148/76 (BP Location: Left arm, Patient Position: Sitting, BP Cuff Size: Large adult) Pulse79 Temp 97.6 ??F (36.4 ??C) (Temporal) Resp 16 Ht 5' 1 (1.549 m) Wt 199 lb 3.2 oz (90.4 kg) SpO2 98% BMI 37.64 kg/m?? Physical Exam Exam conducted with a steward/stewardess third present (Makayla Mcdermott CNM). Constitutional: Appearance: Normal appearance. Chest: Breasts: Right: Normal. No swelling, bleeding, inverted nipple, mass, nipple discharge, skin change or tenderness. Left: Normal. No swelling, bleeding, inverted nipple, mass, nipple discharge, skin change or tenderness. Genitourinary: General: Normal vulva. Labia: Right: No rash, tenderness, lesion or injury. Left: No rash, tenderness, lesion or injury. Vagina: Normal. No signs of injury and foreign body. No vaginal discharge, erythema, tenderness, bleeding or lesions. Cervix: No cervical motion tenderness, discharge, friability, lesion, erythema, cervical bleeding or eversion. Uterus: Normal. Not enlarged and not tender. Adnexa: Right adnexa normal and left adnexa normal. Right: No mass, tenderness or fullness. Left: No mass, tenderness or fullness. Comments: Very limited view of cervix due to discomfort and cervical polyp obscurring full view approx 1 cm. Lymphadenopathy: Upper Body: Right upper body: No supraclavicular or axillary adenopathy. Left upper body: No supraclavicular or axillary adenopathy. Neurological: Mental Status: She is alert. Psychiatric: Mood and Affect: Mood normal. Behavior: Behavior normal. Assessment/Plan Diagnoses and all orders for this visit: Cervical cancer screening - Pap Smear Cotest 5 years if normal. Will call with results and plan. Mammogram 09/2024 DEXA at 66, sooner if new risk factors. Vaginal dryness - Bacterial Vaginosis Panel Likely due to atrophy. Will send bacterial vaginosis swab as precaution and treat positive results.If negative, will offer trial of vaginal estrogen. Cervical polyp Sampled with pap today. Reviewed findings with Eunice. Upon further chart review, this has been present for many years. Will assess yearly, refer if bleeding or increased size. Report bleeding. Let me know if new sexual partners. documented in this encounter Plan of Treatment Upcoming Encounters Date Type Department Care Team (Late st Contact Info) Description 04/15/2024 9:30 AM EST Clinical Support [address] [address] Angela Youssef RN 505 [place] [address] 06/02/2024 10:00 AM EDT Office Visit [facility] MEDICINE [address] [place] [address] Nate Castaneda MD [address] [place] [address] Scheduled Orders Name Type Priority Associated Diagnoses Order Schedule Pap Smear Pathology and Cytology Routine Cervical cancer screening Ordered: 04/07/2024 Bacterial Vaginosis Panel Microbiology Routine Vaginal dryness Ordered: 04/07/2024 documented as of this encounter Visit Diagnoses Diagnosis Cervical cancer screening- Primary Screening for malignant neoplasm of the cervix Vaginal dryness Postmenopausal atrophic vaginitis Cervical polyp Mucous polyp of cervix documented in this encounter Additional Health Concerns Assessment Noted Time PHQ-9 Depression Total Score: 5 05/05/19 24 11:43 AM EST documented as of this encounter Care Teams It Service Technician Relationship Specialty Start Date End Date Nate Castaneda MD [address] [place] [address] PCP - General Internal Medicine 12/15/13 documented as of this encounter
--- OUTSIDE RECORDS SUMMARY | 2024-04-07 19:32 | XMS_ITS | Continuity of Care Document ---
Author Organization [facility] Address [address] [place] [address] Phone Care Team Providers Care Bearing Maker Name Role Phone Aramis Jara MD Unavailable [...] Allergy Associate JOSHUA melendrez, [address], [place], [place], [id number] , [place] tel: [phone] [facility] No Information Marek Self. [address], [address], [place], [place], [id number], [place]. tel:[phone] OV, New Pt, Level III [facility] melendrez, [address], [place], [place], [id number] , [place] tel:[phone] [facility] Difficulty swallowing (chief complaint) Dysphagia, pharyngoesophagea l phaseGastro-esoph ageal reflux disease wi Marek Self. [address], [address], [place], [place], [id number], [place]. tel:[phone] Family History Family Member Type Diagnosis Age At Onset Family H /O Problem (finding) raised blood lipids Payers Payer name Insurance type Covered alliance party ID Orville vázquez(s) Meli [id number] Social History Type Description Quantity Date Captured [...] and Acidic Foods. Avoid Coffee (including Decaf.), Frontier Fruits, Chocolate, Alcohol and Soda.-Avoid Eating Late [...]
--- OUTSIDE RECORDS SUMMARY | 2024-04-07 19:32 | XMS_ITS | Encounter Summary ---
Author Organization [employer] Address [address] 7t [place] [address] Care Team Providers Care Vocational Ed Instructor Name Role Phone Nate Castaneda MD Primary Care Provide r Reason for Visit * Reason Onset Date Comments Med Refill 08/11/2023 Encounter Details Date Type Department Care Team ([facility] st Contact Info) Description 08/11/2023 Telephone [facility] MEDICINE 230 [place], [place] [phone] Nate Castaneda MD 230 [place], [place] [phone] Med Refill Social History Tobacco Use Types [...] * Telephone Encounter - Franco Bland - 08/11/2023 9:51 AM EDT Tc from pt requesting a refill for traMADol (Ultram) 50 MG tablet documented in this encounter Plan of Treatment Upcoming Encounters Date Type Department Care Team (Late st Contact Info) Description 04/15/2024 9:30 AM EST Clinical Support [address] [address] Angela Youssef RN 505 [place] [address] 06/02/2024 10:00 AM EDT Office Visit [facility] MEDICINE [address] [place] [address] Nate Castaneda MD [address] [place] [address] documented as of this encounter Visit Diagnoses Not on filedocumented in this encounter Additional Health Concerns Assessment Noted Time PHQ-9 Depression Total Score: 5 05/05/19 24 11:43 AM EST documented as of this encounter Care Teams Vocational Ed Instructor Relationship Specialty Start Date End Date Nate Castaneda MD [address] [place] [address] PCP - General Internal Medicine 12/15/13 documented as of this encounter
--- OUTSIDE RECORDS SUMMARY | 2024-04-07 19:32 | XMS_ITS | Encounter Summary ---
Author Organization [employer] Address [address] 7t [place] [address] Care Team Providers Care Probation And Patrol Agent Name Role Phone Nate Castaneda MD Primary Care Provide r Reason for Visit * Reason Onset Date Comments Med Refill 09/25/2023 Encounter Details Date Type Department Care Team ([facility] st Contact Info) Description 09/25/2023 Telephone [facility] MEDICINE 230 [place], [place] [phone] Nate Castaneda MD 230 [place], [place] [phone] Med Refill Social History Tobacco Use Types [...] encounter Miscellaneous Notes * Telephone Encounter - Jaylene Ambrose LPN - 09/25/2023 10:50 AM EDT Zyrtec was sent to [facility] #[id number] on 05/26/23 #90 with 1 refill other medication pended to provider. * Telephone Encounter - Kemal Mayo - 09/25/2023 10:43 AM EDT TC from pt requesting medication refill. Medications needing refill: atorvastatin (Lipitor) 40 MG tablet cetirizine (ZyrTEC) 10 MG tablet metoprolol succinate XL (Toprol-XL) 50 MG 24 hr tablet To be sent to: [facility]/pharmacy #[id number] documented in this encounter Plan of Treatment Upcoming Encounters Date Type Department Care Team (Late st Contact Info) Description 04/15/2024 9:30 AM EST Clinical Support [facility] MEDICINE [address] [place] [address] Angela Youssef RN 505 [place] [address] 06/02/2024 10:00 AM EDT Office Visit [facility] MEDICINE [address] [place] [address] Nate Castaneda MD 230 [place] [address] documented as of this encounter Visit Diagnoses Not on filedocumented in this encounter Additional Health Concerns Assessment Noted Time PHQ-9 Depression Total Score: 5 05/05/19 24 11:43 AM EST documented as of this encounter Care Teams Probation And Patrol Agent Relationship Specialty Start Date End Date Nate Castaneda MD 230 [place] [address] PCP - General Internal Medicine 12/15/13 documented as of this encounter
--- OUTSIDE RECORDS SUMMARY | 2024-04-07 19:32 | XMS_ITS | Encounter Summary ---
Author Organization [employer] Address [address] 7t [place] [address] Care Team Providers Care Software Engineer Kernel Name Role Phone Nate Castaneda MD Primary Care Provide r Reason for Visit * Reason Onset Date Comments Med Refill 03/10/2024 Encounter Details Date Type Department Care Team (Late st Contact Info) Description 03/10/2024 Refill [facility] MEDICINE 230 [place] [address] Nate Castaneda MD 230 [place], [place] [phone] Chronic low back pain without sciatica, unspecified back pain laterality Social History Tobacco Use Types Packs/Day Years [...] encounter Miscellaneous Notes * Telephone Encounter - Stephanie Chandler - 03/10/2024 1:00 PM EST TC from pt requesting medication refill. Medications needing refill : traMADol (Ultram) 50 MG tablet () To be sent to: [facility]/PHARMACY [address] [place] [address] documented in this encounter Plan of Treatment Upcoming Encounters Date Type Department Care Team (Late st Contact Info) Description 04/15/2024 9:30 AM EST Clinical Support [facility] MEDICINE [address] [place] [address] Angela Youssef RN 505 [place] [address] 06/02/2024 10:00 AM EDT Office Visit [facility] MEDICINE [address] [place] [address] Nate Castaneda MD 230 [place] [address] documented as of this encounter Visit Diagnoses Diagnosis Chronic low back pain without sciatica, unspecified back pain laterality documented in this encounter Additional Health Concerns Assessment Noted Time PHQ-9 Depression Total Score: 5 05/05/19 24 11:43 AM EST documented as of this encounter Care Teams Software Engineer Kernel Relationship Specialty Start Date End Date Nate Castaneda MD 230 [place] [address] PCP - General Internal Medicine 12/15/13 documented as of this encounter
--- OUTSIDE RECORDS SUMMARY | 2024-04-07 19:32 | XMS_ITS | Encounter Summary ---
Author Organization [employer] Address [address] 7t [place] [address] Care Team Providers Care Mobility Manager Name Role Phone Nate Castaneda MD Primary Care Provide r Reason for Visit * Reason Onset Date Comments Reschedule 06/02/2023 Encounter Details Date Type Department Care Team ([facility] st Contact Info) Description 06/02/2023 Telephone [facility] MEDICINE 230 [place] [address] Nate Castaneda MD 230 [place], [place] [phone] Reschedule Social History Tobacco Use Types Packs/Day Years [...] encounter Miscellaneous Notes * Telephone Encounter - Dina Roach - 06/02/2023 9:36 AM EDT Tc from pt requesting r/s NEONATAL SURGEON appt. documented in this encounter Plan of Treatment Upcoming Encounters Date Type Department Care Team (Late st Contact Info) Description 04/15/2024 9:30 AM EST Clinical Support [facility] MEDICINE [address] [place] [address] Angela Youssef RN 505 [place] [address] 06/02/2024 10:00 AM EDT Office Visit [facility] MEDICINE [address] [place] [address] Nate Castaneda MD [address] [place] [address] documented as of this encounter Visit Diagnoses Not on filedocumented in this encounter Additional Health Concerns Assessment Noted Time PHQ-9 Depression Total Score: 5 05/05/19 24 11:43 AM EST documented as of this encounter Care Teams Mobility Manager Relationship Specialty Start Date End Date Nate Castaneda MD [address] [place] [address] PCP - General Internal Medicine 12/15/13 documented as of this encounter
--- OUTSIDE RECORDS SUMMARY | 2024-04-07 19:32 | XMS_ITS | Encounter Summary ---
Author Organization [facility] Address [address] [place] [address] 7t [place] [address] Care Team Providers Care Communications Director Name Role Phone Nate Castaneda MD Primary Care Provide r Encounter Details Date Type Department Care Team (Late st Contact Info) Description 01/23/2022 Abstract [facility] MEDICINE [address] [place] [address] ProviderMario MD Social History Tobacco Use Types Packs/Day Years Used Date Smoking Tobacco: Never Assessed Comments Unknown Sex and Gender Information Value [...] Description 04/15/2024 9:30 AM EST Clinical Support [facility] MEDICINE [address] [place] [address] Angela Youssef RN 505 [place] [address] 06/02/2024 10:00 AM EDT Office Visit [facility] MEDICINE [address] [place] [phone] Nate Castaneda MD 230 [place] [address] documented as of this encounter Procedures Procedure Name Priority Date/Time Associated Diagnosis Comments HEMOGLOBIN A1C Routine 10/08/2021 MAMMOGRAPHY Routine 01/21/2021 PAP/HPV Routine 12/02/2018 documented in this encounter Results * (ABNORMAL) Hemoglobin A1c (10/08/2021) Hemoglobin A1C 6.2(A) 4.0 - 6.0 % Blood Venous blood specimen / Unknown Historical Provider MD LAB BLOOD ORDERABLES Zunilda l Result * Mammography (01/21/2021) Mammogram Bi-Rads 2 Anatomical Region Laterality Modality Other Historical Provider HEALTH MAINTENANCE Final Result * Pap Smear (12/02/2018) Pap smear NIL Historical Provider HEALTH MAINTENANCE Final Result documented in this encounter Visit Diagnoses Not on filedocumented in this encounter Care Teams Communications Director Relationship Specialty Start Date End Date Nate Castaneda MD [address] [place] [address] PCP - General Internal Medicine 12/15/13 documented as of this encounter
--- OUTSIDE RECORDS SUMMARY | 2024-04-07 19:32 | XMS_ITS | Encounter Summary ---
Author Organization [employer] Address [address] [place] [address] Care Team Providers Care Formation Fracturing Operator Name Role Phone Naet Castaneda MD Primary Care Provide r Reason for Visit * Reason Onset Date Comments Reschedule 04/29/2023 Encounter Details Date Type Department Care Team ([facility] st Contact Info) Description 04/29/2023 Telephone [facility] MEDICINE 230 [place] [address] Nate Castaneda MD 230 [place], [place] [phone] Reschedule Social History Tobacco Use Types Packs/Day Years Used Date Smoking Tobacco: Never Passive Smoke Exposure: Never Smokeless Tobacco: Never Depression Answer Date Recorded Patient Health Questionnaire-9 Score 0 04/03/2022 Housing Stability Answer Date Recorded What is your housing situation today? I have housing today, but I am worried about losing housing in the future 12/23/[address] you li ve. Do you have problems with any of the following? None of the above 12/23/2022 Food Insecurity Answer Date Recorded Within the past 12 months, y ou worried that your food would run out before you got money to buy more: Never True 12/23/2022 Within the past 12 months,th e food you bought just didn't last and you didn't have enough money to get more: Never True Transportation Answer Date Recorded In the past 12 months, has l ack of transportation kept you from medical appts, meetings, work or from getting things needed for daily living? No 12/23/2022 Utilities Answer Date Recorded In the past 12 months, has t he electric, gas, oil or water company threatened to shut off services in your home? No 12/23/2022 Depression Answer Date Recorded Patient Health Questionnaire-2 Score 0 04/03/2022 Comments Unknown Sex and Gender Information Value Date Recorded Sex Assigned at Female 01/06/2022 10:18 AM EDT Legal Sex Female 10:18 AM EDT Gender Identity Female 01/06/2022 10:18 AM EDT Sexual Orientation Don't know 01/06/2022 10 :18 AM EDT documented as of this encounter Miscellaneous Notes * Telephone Encounter - Mimi Mo - 04/29/2023 10:32 AM EST Tc from pt requesting to r/s 05/01 DECK HAND 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 Please contact pt at [phone] (Grenadian) documented in this encounter Plan of Treatment Upcoming Encounters Date Type Department Care Team (Late st Contact Info) Description 04/15/2024 9:30 AM EST Clinical Support [facility] MEDICINE [address] [place] [address] Angela Youssef, AMY 505 [place] [address] 06/02/2024 10:00 AM EDT Office Visit [facility] MEDICINE [address] [place] [address] Nate Castaneda MD [address] [place] [address] documented as of this encounter Visit Diagnoses Not on filedocumented in this encounter Additional Health Concerns Assessment Noted Time PHQ-9 Depression Total Score: 0 04/03/19 23 11:21 AM EST documented as of this encounter Care Teams Formation Fracturing Operator Relationship Specialty Start Date End Date Nate Castaneda MD [address] [place] [address] PCP - General Internal Medicine 12/15/13 documented as of this encounter
--- OUTSIDE RECORDS SUMMARY | 2024-04-07 19:32 | XMS_ITS | Encounter Summary ---
Author Organization [employer] Address [address] [place] [address] Care Team Providers Care Client Associate Name Role Phone Nate Castaneda MD Primary Care Provide r Reason for Visit * Reason Onset Date Comments Med Refill 10/08/2023 Encounter Details Date Type Department Care Team ([facility] st Contact Info) Description 10/08/2023 Telephone [facility] MEDICINE 230 [place], [place] [phone] Nate Castaneda MD 230 [place], [place] [phone] Med Refill Social History Tobacco Use Types [...] * Telephone Encounter - Franco Bland - 10/08/2023 3:13 PM EDT Tc from pt requesting a refill for traMADol (Ultram) 50 MG tablet documented in this encounter Plan of Treatment Upcoming Encounters Date Type Department Care Team (Late st Contact Info) Description 04/15/2024 9:30 AM EST Clinical Support [address] [address] Angela Youssef RN 505 [place] [address] 06/02/2024 10:00 AM EDT Office Visit [facility] MEDICINE [address] [place] [address] Nate Castaneda MD [address] [place] [address] documented as of this encounter Visit Diagnoses Not on filedocumented in this encounter Additional Health Concerns Assessment Noted Time PHQ-9 Depression Total Score: 5 05/05/19 24 11:43 AM EST documented as of this encounter Care Teams Client Associate Relationship Specialty Start Date End Date Nate Castaneda MD [address] [place] [address] PCP - General Internal Medicine 12/15/13 documented as of this encounter
--- OUTSIDE RECORDS SUMMARY | 2024-04-07 19:32 | XMS_ITS | Encounter Summary ---
Author Organization [employer] Address [address] [place] [address] Care Team Providers Care Contact Lens Blocker And Cutter Name Role Phone Nate Castaneda MD Primary Care Provide r Reason for Visit * Reason Comments Med Refill Encounter Details Date Type Department Care Team ([facility] st Contact Info) Description 03/17/2024 Refill [facility] MEDICINE [address] [place], [place] [phone] Nate Castaneda MD [address] [place] [address] Social History Tobacco Use Types Packs/Day Years [...] 04/15/2024 9:30 AM EST Clinical Support [facility] MEDICINE [address] [place] [phone] Angela Youssef RN [address] [place] [address] 06/02/2024 10:00 AM EDT Office Visit [facility] MEDICINE [address] [place] [phone] Nate Castaneda MD [address] [place] [phone] documented as of this encounter Visit Diagnoses Not on filedocumented in this encounter Additional Health Concerns Assessment Noted Time PHQ-9 Depression Total Score: 5 05/05/19 24 11:43 AM EST documented as of this encounter Care Teams Contact Lens Blocker And Cutter Relationship Specialty Start Date End Date Nate Castaneda MD [address] [place] [phone] PCP - General Internal Medicine 12/15/13 documented as of this encounter
--- OUTSIDE RECORDS SUMMARY | 2024-04-07 19:32 | XMS_ITS | Encounter Summary ---
Author Organization [employer] Address [address] [facility] [address] [place] [address] Care Team Providers Care Transport Tank Technician Name Role Phone Nate Castaneda MD Primary Care Provide r Reason for Visit * Reason Onset Date Comments Med Refill 11/11/2022 Encounter Details Date Type Department Care Team ([facility] st Contact Info) Description 11/11/2022 Telephone [facility] MEDICINE [address] [place] [phone] Nate Castaneda MD [address] [place] [address] Med Refill Social History Tobacco Use Types Packs/Day Years Used Date Smoking Tobacco: Never Passive Smoke Exposure: Never Smokeless Tobacco: Never Depression Answer Date Recorded Patient Health Questionnaire-9 Score 0 04/03/2022 Depression Answer Date Recorded Patient Health Questionnaire-2 Score 0 04/03/2022 Comments Unknown Sex and Gender Information Value Date Recorded Sex Assigned at Female 01/06/2022 10:18 AM EDT Legal Sex Female 10:18 AM EDT Gender Identity Female 01/06/2022 10:18 AM EDT Sexual Orientation Don't know 01/06/2022 10 :18 AM EDT documented as of this encounter Miscellaneous Notes * Telephone Encounter - Fabiana Barrett - 11/11/2022 10:41 AM EDT TC from pt requesting med refill for medication traMADol (Ultram) 50 MG tablet. documented in this encounter Plan of Treatment Upcoming Encounters Date Type Department Care Team (Late st Contact Info) Description 04/15/2024 9:30 AM EST Clinical Support [facility] MEDICINE [address] [place] [phone] Angela Youssef, RN [address] [place] [address] 06/02/2024 10:00 AM EDT Office Visit [facility] MEDICINE [address] [place] [phone] Nate Castaneda MD [address] [place] [phone] documented as of this encounter Visit Diagnoses Not on filedocumented in this encounter Additional Health Concerns Assessment Noted Time PHQ-9 Depression Total Score: 0 04/03/19 23 11:21 AM EST documented as of this encounter Care Teams Transport Tank Technician Relationship Specialty Start Date End Date Nate Castaneda MD [address] [place] [phone] PCP - General Internal Medicine 12/15/13 documented as of this encounter
--- OUTSIDE RECORDS SUMMARY | 2024-04-07 19:32 | XMS_ITS | Clinical Summary ---
Author Organization [employer] Address [address] [place] [address] Care Team Providers Care Instructor Of Sociology Name Role Phone Nate Castaneda MD Primary Care Provide r Allergies Active Allergy Reactions Criticality Noted Date Comments Lisinopril Cough 02/05/2011 Medications acetaminophen (Tylenol) 500 MG tablet Take 500 mg by mouth if needed in the morning, at noon, and at bedtime. 020 Active EPINEPHrine (Epipen) 0.3 MG/0.3ML injection syringe Inject 0.3 mL into the shoulder, thigh, or buttocks if needed. 022 Active fluticasone (Flonase Allergy Relief) 50 MCG/ACT nasal spray Administer 1-2 sprays into affected nostril(s) if needed. 021 Active FLUoxetine (PROzac) 20 MG capsule Take 20 mg by mouth in the morning. 018 Active Ferrocite 324 MG tablet TOME SHILA TABLETA TODOS LOS D 022 Active triamcinolone (Kenalog) 0.025 % cream APLIQUE AL AREA AFECTADA DOS VECES AL LATONIA CUANDO SEA NECESARIO 60 g 023 Active BD ULTRA-FINE PEN NEEDLES 29G X 12.7MM misc INJECT 1 BY INTRADERMAL ROUTE 2 TIMES A DAY 024 Active FREESTYLE LITE test strip USE TO TEST BLOOD SUGAR FOUR TIMES A DAY 200 strip 11 024 Active metFORMIN (Glucophage) 1000 MG tablet TOME SHILA TABLETA DOS VECES AL LATONIA CON LAS COMIDAS EN LA MANANA & EN LA NOCHE 180 tablet 3 024 Active insulin glargine (Lantus SoloStar) 100 UNIT/ML penIndications: Type 2 diabetes mellitus with obesity (CMS/HCC) ([facility]) INJECT 28 UNITS SUBCUTANEOUSLY AT BEDTIME 15 mL 3 024 Active metoprolol succinate XL (Toprol-XL) 50 MG 24 hr tabletIndicatio ns:Benign hypertension TAKE 1 TABLEY BY MOUTH ONCE DAILY 90 tablet 024 Active Dulaglutide (Trulicity) 3 MG/0.5ML solution auto-injectorIn dications:Type 2 diabetes mellitus with obesity (CMS/HCC) ([facility]) Inject 0.5 mL (3 mg) under the skin 1 (one) time per week. 0.5 mL 6 024 Active losartan (Cozaar) 50 MG tablet Take 1 tablet (50 mg) by mouth Once per day. TAKE 1 TABLET BY MOUTH EVERY MORNING 90 tablet 1 Active traMADol (Ultram) 50 MG tabletIndicatio ns:Chronic low back pain without sciatica, unspecified back pain laterality Take 1 tablet (50 mg) by mouth every 12 (twelve) hours if needed for severe pain for up to 28 days. 56 tablet 025 2024 Active cetirizine (ZyrTEC) 10 MG tabletIndicatio ns:Allergic rhinitis, unspecified seasonality, unspecified trigger TAKE 1 TABLET BY MOUTH EVERY DAY IF NEEDED 90 tablet 025 Active atorvastatin (Lipitor) 40 MG tablet TOME 1 TABLETA POR VIA ORAL TODOS LOS NGUYEN 90 tablet 025 Active atorvastatin (Lipitor) 40 MG tablet TOME 1 TABLETA POR VIA ORAL TODOS LOS NGUYEN 90 tablet 024 2024 Discontinued(R eorder (will not trigger notification to Pharmacy)) cetirizine (ZyrTEC) 10 MG tabletIndicatio ns:Allergic rhinitis, unspecified seasonality, unspecified trigger TAKE 1 TABLET BY MOUTH EVERY DAY IF NEEDED 90 tablet 024 2024 Discontinued traMADol (Ultram) 50 MG tabletIndicatio ns:Chronic low back pain without sciatica, unspecified back pain laterality Take 1 tablet (50 mg) by mouth every 12 (twelve) hours if needed for severe pain for up to 28 days. 56 tablet 024 2024 Discontinued(R eorder (will not trigger notification to Pharmacy)) Active Problems Problem Noted Date Diagnosed Date Cervical polyp 04/07/2024 Long-term current use of opiate analgesic 2023 Routine physical examination 11/05/2023 Assessment & Plan (11/05/2023 2:48 PM EDT): Exam within normal limits Chronic bilateral low back pain without sciatica 06/15/2023 Assessment & Plan (07/22/2023 10:08 AM EDT): Patient participated in group activities Urine toxicology and pill count as expected Patient can return in 1-2 months for next group visit as desired Class 2 severe obesity due t o excess calories with serious comorbidity in adult 04/03/2022 Assessment & Plan (05/05/2023 11:44 AM EST): S/P LSG without hiatal hernia repair on 10/29/17 Under the care of the comprehensive weight management program. Assessment & Plan (08/21/2022 12:58 PM EDT): S/P LSG without hiatal hernia repair on 10/29/17 Under the care of the comprehensive weight management program. Last seen 07/14/2022 Assessment & Plan (04/03/2022 11:33 AM EST): S/P LSG without hiatal hernia repair on 10/29/17 Under the care of the comprehensive weight management program Preventative health care 03/06/2022 Assessment & Plan (01/28/2024 2:14 PM EST): Pap 12/02/2018 NL repeat in 5 years. Mammogram 09/14/2023 Normal She had been referred to Dr. Avila for screening colonoscopy but keeps missing appointments since she does not want to do the procedure. IFOBTs 01/18/2020 negative. Cologard 12/07/2023 NEGATIVE Assessment & Plan (11/05/2023 2:49 PM EDT): Pap 12/02/2018 NL repeat in 5 years. Mammogram 09/14/2023 Normal Vaccines Covid-19 vaccine completed Pneumovax: 07/29/2009 Td: 07/19/2009 She has been referred to Dr. Avila for screening colonoscopy but keeps missing appointments since she does not want to do the procedure. IFOBTs 01/18/2020 negative. Patient refuses colorectal cancer screening. I have discussed with patient the benefits of this screening test. Despite this continues to refuse and verbalizes understanding that by doing this she is putting herself at risk of deadly conditions such as colon cancer. Pt today was agreable to have Cologard, received message sample was un acceptable, will order again Assessment & Plan (05/05/2023 11:50 AM EST): Pap 12/02/2018 NL repeat in 5 years. Mammogram 09/2022 Normal Vaccines Covid-19 vaccine completed Pneumovax: 07/29/2009 Td: 07/19/2009 She has been referred to Dr. Avila for screening colonoscopy but keeps missing appointments since she does not want to do the procedure. IFOBTs 01/18/2020 negative. Patient refuses colorectal cancer screening. I have discussed with patient the benefits of this screening test. Despite this continues to refuse and verbalizes understanding that by doing this she is putting herself at risk of deadly conditions such as colon cancer. Pt today is agreable to have Cologard Assessment & Plan (01/01/2023 11:17 AM EDT): Pap 12/02/2018 NL repeat in 5 years. Mammogram 09/2022 Normal Vaccines Covid-19 vaccine completed Pneumovax: 07/29/2009 Td: 07/19/2009 She has been referred to Dr. Avila for screening colonoscopy but keeps missing appointments since she does not want to do the procedure. IFOBTs 01/18/2020 negative. Patient refuses colorectal cancer screening. I have discussed with patient the benefits of this screening test. Despite this continues to refuse and verbalizes understanding that by doing this she is putting herself at risk of deadly conditions such as colon cancer. Pt has been advice to let me know if she changes her mind at any time. Assessment & Plan (08/21/2022 1:00 PM EDT): Pap 12/02/2018 NL repeat in 5 years. Mammogram 01/21/2021. Will repeat Vaccines Covid-19 vaccine completed Pneumovax: 07/29/2009 Td: 07/19/2009 She has been referred to Dr. Avila for screening colonoscopy but keeps missing appointments since she does not want to do the procedure. IFOBTs 01/18/2020 negative. Patient refuses colorectal cancer screening. I have discussed with patient the benefits of this screening test. Despite this continues to refuse and verbalizes understanding that by doing this she is putting herself at risk of deadly conditions such as colon cancer. Pt has been advice to let me know if she changes her mind at any time. Assessment & Plan (03/06/2022 11:26 AM EST): Pap 12/02/2018 NL repeat in 5 years. Mammogram 01/21/2021 Vaccines Covid-19 vaccine completed Pneumovax: 07/29/2009 Td: 07/19/2009 She has been referred to Dr. Avila for screening colonoscopy but keeps missing appointments since she does not want to do the procedure. IFOBTs 01/18/2020 negative. Patient refuses colorectal cancer screening. I have discussed with patient the benefits of this screening test. Despite this continues to refuse and verbalizes understanding that by doing this she is putting herself at risk of deadly conditions such as colon cancer. Pt has been advice to let me know if she changes her mind at any time. Sensorineural hearing loss, bilateral 01/23/2022 Assessment & Plan (03/06/2022 11:23 AM EST): evaluated byb ENT Dr Yepez 01/18/2021 diagnosed with bilateral sensorineural hearing loss. He recommended considering amplification Type 2 diabetes mellitus with obesity ([facility]/HCC) 07/07/2017 Assessment & Plan (01/28/2024 2:19 PM EST): Patient is here for a follow up. DM: She is on a regimen of: Lantus 20 units sc q pm, Metformin 1000 mg pom BID and Trulicity 1.5 once a week, Hgb A1c 01/28/2024 : 8.3 from 8.9 Actos and Glipizide were held after the Bariatric surgery Plan: Increase Trulicity to 3 mg once a week 3 months follow up Eye exam done on: 08/17/2015 Microalbumin checked on: 03/27/2021 will repeat was: 0.9 Pt on an ARB. Foot check risk of zero Pt reports compliance with Asa 81 mg po daily Pt was referred to our art educator. but did not come Pt advised to: adhere to diabetic diet check your blood sugars regularly check your feet on a daily basis Assessment & Plan (11/05/2023 2:53 PM EDT): Patient is here for a f/u Glucometer shows average 101 She is on a regimen of: Lantus 20 units sc q pm, Metformin 1000 mg pom BID and Trulicity 0.75 once a week, Hgb A1c 11/05/2023 : 8.9 Actos and Glipizide were held after the Bariatric surgery Plan: Increase trulicity to 1.5 once a week 3 months follow up Eye exam done on: 08/17/2015 Microalbumin checked on: 03/27/2021 will repeat was: 0.9 Pt on an ARB. Foot check risk of zero Pt reports compliance with Asa 81 mg po daily Pt was referred to our art educator. but did not come Pt advised to: adhere to diabetic diet check your blood sugars regularly check your feet on a daily basis Assessment & Plan (05/05/2023 12:45 PM EST): Patient is here for a f/u Glucometer shows average 88 She is on a regimen of: Lantus 20 units sc q pm, Metformin 1000 mg pom BID and Trulicity 0.75 once a week, Hgb A1c 05/05/2023: 7.2 Actos and Glipizide were held after the Bariatric surgery Plan: Continue current regimen 4 months follow up Eye exam done on: 08/17/2015 Microalbumin checked on: 03/27/2021 will repeat was: 0.9 Pt on an ARB. Foot check risk of zero Pt reports compliance with Asa 81 mg po daily Pt was referred to our art educator. but did not come Pt advised to: adhere to diabetic diet check your blood sugars regularly check your feet on a daily basis Assessment & Plan (01/01/2023 11:23 AM EDT): Patient is here for a f/u Glucometer shows average 92 She is on a regimen of: Lantus Today will lower to 20 units sc q pm, Metformin 1000 mg pom BID and Trulicity 0.75 once a week, Hgb A1c 12/04/2022 was 6.2 Actos and Glipizide were held after the Bariatric surgery Plan: Continue current regimen 3 months follow up Eye exam done on: 08/17/2015 Microalbumin checked on: 03/27/2021 was: 0.9 Pt on an ARB. Foot check risk of zero Pt reports compliance with Asa 81 mg po daily Pt was referred to our art educator. but did not come Pt advised to: adhere to diabetic diet check your blood sugars regularly check your feet on a daily basis Assessment & Plan (07/22/2022 11:59 AM EDT): Patient is here for a f/u pt reports reading average 112 She is on a regimen of: Lantus 48 units sc q pm, Metformin 1000 mg pom BID and Trulicity 0.75 once a week, Hgb A1c 07/22/2022 was 7.1 from 8.5 and 10.0 previously Actos and Glipizide were held after the Bariatric surgery Plan: Continue current regimen 3 months follow up Eye exam done on: 08/17/2015 Microalbumin checked on: 03/27/2021 was: 0.9 Pt on an ARB. Foot check risk of zero Pt reports compliance with Asa 81 mg po daily Pt was referred to our art educator. but did not come Pt advised to: adhere to diabetic diet check your blood sugars regularly check your feet on a daily basis Assessment & Plan (04/03/2022 11:34 AM EST): Patient is here for a f/u pt reports reading average 166 She is on a regimen of: Lantus 48 units sc q pm, Metformin 1000 mg pom BID and Trulicity 0.75 once a week, Hgb A1c 04/03/2022 was 8.5 from 10.0 Actos and Glipizide were held after the Bariatric surgery Plan: Continue current regimen 3 months follow up Eye exam done on: 08/17/2015 Microalbumin checked on: 03/27/2021 was: 0.9 Pt on an ARB. Foot check risk of zero Pt reports compliance with Asa 81 mg po daily Pt was referred to our art educator. but did not come Pt advised to: adhere to diabetic diet check your blood sugars regularly check your feet on a daily basis Assessment & Plan (03/06/2022 12:35 PM EST): Patient here for a f/u pt reports reading average 191 She is on a regimen of: Lantus 48 units sc q pm and Metformin 1000 mg pom BID. Hgb A1c 02/06/2022 was 10.0 Actos and Glipizide all of these were held after the Bariatric surgery Plan: Start Trulicity 0.75 once a week, I have asked her to come back for my nurse to teach her how to inject 4 weeks f/u Eye exam done on: 08/17/2015 Microalbumin checked on: 03/27/2021 was: 0.9 Pt on an ARB. Foot check risk of zero Pt reports compliance with Asa 81 mg po daily Pt was referred to our art educator. but did not come Pt advised to: adhere to diabetic diet check your blood sugars regularly check your feet on a daily basis Assessment & Plan (02/06/2022 12:53 PM EST): Patient here for a f/u pt reports reading average 189 She is on a regimen of: Lantus 40 units sc q pm and Metformin 1000 mg pom BID. Hgb A1c 02/06/2022 was 10.0 Actos and Glipizide all of these were held after the Bariatric surgery Plan: Increase Lantus to 48 units subcutaneous q pm. Might consider Trulicity next visit. 4 months f/u Eye exam done on: 08/17/2015 Microalbumin checked on: 03/27/2021 was: 0.9 Pt on an ARB. Foot check risk of zero Pt reports compliance with Asa 81 mg po daily Pt was referred to our art educator. but did not come Pt advised to: adhere to diabetic diet check your blood sugars regularly check your feet on a daily basis Severe recurrent major depre ssion without psychotic features 07/07/2017 Assessment & Plan (05/05/2023 11:45 AM EST): Doing well She sees a therapist at [facility] her name is Kiera about once a month. and a psychiatrist Dina She is on Prozac 60mg. and Klonopin. Today reports feels good. No suicidal ideation Assessment & Plan (08/21/2022 12:59 PM EDT): Doing well She sees a therapist at [facility] her name is Kiera about once a month. and a psychiatrist Dina She is on Prozac 60mg. and Klonopin. Today reports feels good. No suicidal ideation Assessment & Plan (03/06/2022 11:23 AM EST): Doing well She sees a therapist at [facility] her name is Kiera about once a month. and a psychiatrist Dina SHe is on Prozac 60mg. and Klonopin. No suicidal ideation Cobalamin deficiency 10/25/2015 Allergic rhinitis 03/09/1959 Benign hypertension 03[birth year]09/1958 Assessment & Plan (01/28/2024 2:14 PM EST): Patient is here for a follow up BP controlled on a regimen of: Losartan 50 mg PO daily, and Toprol XL 50 mg po daily (prescribed by cardiology ) Given adequate blood pressure control will continue with current medical regimen. Most recent electrolytes, Bun and Creatinine done on: Lab Results Component Value Date NA 142 12/25/2022 NA 146 (H) 12/04/2022 K 4.0 12/25/2022 K 4.1 12/04/2022 CL 105 12/25/2022 CL 109 (H) 12/04/2022 BUN 8 (L) 12/25/2022 BUN 7 (L) 12/04/2022 CREATININE 0.65 12/25/2022 CREATININE 0.72 12/04/2022 were within normal limits. Repeat BMP patient advised to adhere to a low sodium diet, encouraged about medication compliance, counseled about weight loss. Assessment & Plan (11/05/2023 2:29 PM EDT): Patient is here for a follow up BP controlled on a regimen of: Losartan 50 mg PO daily, and Toprol XL 50 mg po daily (prescribed by cardiology ) Given adequate blood pressure control will continue with current medical regimen. Most recent electrolytes, Bun and Creatinine done on: 12/2022 were within normal limits. Repeat BMP patient advised to adhere to a low sodium diet, encouraged about medication compliance, counseled about weight loss. Assessment & Plan (05/05/2023 11:42 AM EST): Patient is here for a follow up BP controlled on a regimen of: Losartan 50 mg PO daily, and Toprol XL 50 mg po daily (prescribed by cardiology ) Given adequate blood pressure control will continue with current medical regimen. Most recent electrolytes, Bun and Creatinine done on: 12/2022 were within normal limits. patient advised to adhere to a low sodium diet, encouraged about medication compliance, counseled about weight loss. Assessment & Plan (01/01/2023 11:25 AM EDT): Patient is here for a follow up BP controlled on a regimen of: Losartan 50 mg PO daily, and Toprol XL 50 mg po daily (prescribed by cardiology ) Given adequate blood pressure control will continue with current medical regimen. Most recent electrolytes, Bun and Creatinine done on: 12/2022 were within normal limits. Will repeat patient advised to adhere to a low sodium diet, encouraged about medication compliance, counseled about weight loss. Assessment & Plan (08/21/2022 12:57 PM EDT): Patient is here for a follow up BP controlled on a regimen of: Losartan 50 mg PO daily, and Toprol XL 50 mg po daily (prescribed by cardiology ) Given adequate blood pressure control will continue with current medical regimen. Most recent electrolytes, Bun and Creatinine done on: 01/01/2022 were within normal limits. Will repeat patient advised to adhere to a low sodium diet, encouraged about medication compliance, counseled about weight loss. Assessment & Plan (03/06/2022 11:26 AM EST): Here for a follow up BP controlled on a regimen of: Losartan 50 mg PO daily, and Toprol XL 50 mg po daily (prescribed by cardiology ) Given adequate blood pressure control will continue with current medical regimen. Most recent electrolytes, Bun and Creatinine done on: 01/01/2022 were within normal limits. patient advised to adhere to a low sodium diet, encouraged about medication compliance, counseled about weight loss. Assessment & Plan (02/06/2022 11:40 AM EST): Pt has a BP monitor at home , reports systolic readings in the 120s BP controlled on a regimen of: Losartan 50 mg PO daily, and Toprol XL 50 mg po daily (prescribed by cardiology ) Given adequate blood pressure control will continue with current medical regimen. Most recent electrolytes, Bun and Creatinine done on: 01/01/2022 were within normal limits. patient advised to adhere to a low sodium diet, encouraged about medication compliance, counseled about weight loss. Gastroesophageal reflux disease 03/09/1958 Paroxysmal atrial fibrillation 03/09/1958 Assessment & Plan (05/05/2023 11:46 AM EST): Last note from cardiology 04/28/2023 taken off of coumadin and placed on ASA. Assessment & Plan (08/21/2022 1:04 PM EDT): Last note from cardiology 04/09/2021 taken off of coumadin and placed on ASA. Dr. Chang suspected that she may have LIGIA that had triggered her PAF so she was referred to Dr. Shah for a sleep study. Assessment & Plan (03/06/2022 11:24 AM EST): Seen by cardiology 04/09/2021 taken off of coumadin and placed on ASA. Dr. Chang suspects that she may have LIGIA that had triggered her PAF so she has been referred to Dr. Shah for a sleep study. To f/u cardiology Resolved Problems Problem Noted Date Diagnosed Date Resolved Date Mixed hyperlipidemia 03/20/2015 022 Encounters Date Type Department Care Team Description 04/07/2024 9:30 AM EST Procedure Visit [facility] [address] [place] [id number] Makayla Mcdermott CNM Cervical cancer screening (Primary Dx); Vaginal dryness; Cervical polyp 04/07/2024 Travel 03/17/2024 Refill [facility] [address] [place] [address] Garrett Hawkins MD Allergic rhinitis, unspecified seasonality, unspecified trigger 03/17/2024 Refill [facility] [address] [place] [address] Nate Castaneda MD 03/15/2024 Telephone [facility] [address] [place] [address] Nate Castaneda MD Appointment Request 03/10/2024 Refill [facility] [address] [place] [address] Nate Castaneda MD Chronic low back pain without sciatica, unspecified back pain laterality 02/10/2024 Refill [facility] [address] [place] [address] Nate Castaneda MD Chronic low back pain without sciatica, unspecified back pain laterality 02/09/2024 Refill [facility] [address] [place] [address] Nate Castaneda MD 02/08/2024 Refill [facility] [address] [place] [address] Saumya Epps ANP 01/28/2024 2:00 PM EST Office Visit [facility] [address] [place] [address] Nate Castaneda MD Type 2 diabetes mellitus with obesity (CMS/HCC) (CMS/[facility]) (Primary Dx); Benign hypertension; Preventative health care; Encounter for immunization 01/28/2024 Telephone [facility] [address] [place] [address] Nate Castaneda MD Medication Question 01/28/2024 Travel 01/19/2024 Refill [facility] [address] [place] [address] Vickie Hayes MD Benign hypertension 01/18/2024 Telephone [facility] [address] [place] [address] Nate Castaneda MD Chart Prep 01/15/2024 10:00 AM EST Clinical Support [facility] [address] [facility] [place] [address] Angela Youssef RN Chronic bilateral low back pain without sciatica 01/15/2024 Travel 01/11/2024 Telephone [facility] [address] [facility] [place] [address] Nate Castaneda MD Medication Question 01/11/2024 Refill [facility] [address] [place] [address] Nate Castaneda MD Chronic low back pain without sciatica, unspecified back pain laterality from Last 3 Months Immunizations Name Administration Dates Next Due Hep B, adult 01/22/2021,10/30/2020,10/02/2020 Influenza injectable quadriv alent IIV4 with preservative 11/27/2017,11/25/2016,02/14/2016 Influenza injectable quadriv alent preservative free 12/18/2021,01/22/2021,12/06/2019,12/02,03/20/2015 Influenza, IIV3, injectable 01/03/2014, 4,11/07/2010 Influenza, Split (incl. jessica fied surface antigen) 01/17/2013,12/01/2011 Influenza, seasonal, injecta ble, preservative free 01/28/2024 Moderna Covid-19 Vaccine 12+ 10/08/2021, 02/11/2021,07/24/2020,06/26 Pfizer Covid-19 Vaccine 12+ Bivalent 12/18/2021 Pneumococcal Conjugate PCV 20 10/24/2022 Pneumococcal Polysaccharide PPSV23 07/29/2009 TD (adult), 2 Lf tetanus tox oid, preservative free, adsorbed 07/19/2009 Tdap 10/30/2020 Zoster, Recombinant 10/24/2022,08/21/2022 Family History Medical History Relation Name Comments Breast cancer Neg Hx as of Colon cancer Neg Hx as of 04/07/2024 Ovarian cancer Neg Hx as of 04/07/19 25 Social History Tobacco Use Types Packs/Day Years Used Date Smoking Tobacco: Never Passive Smoke Exposure: Never Smokeless Tobacco: Never Tobacco Cessation:Counseling Given: Not Answered Depression Answer Date Recorded Patient Health Questionnaire-9 [...] Don't know 01/06/2022 10 :18 AM EDT Last Filed Vital Signs Vital Sign Reading [...] Mass Index 37.64 04/07/2024 9:22 AM EST Plan of Treatment Upcoming Encounters Date Type Department Care Team (Late st Contact Info) Description 04/15/2024 9:30 AM EST Clinical Support [facility] [address] [place] [id number] Angela Youssef RN [address] [place] [address] 06/02/2024 10:00 AM EDT Office Visit [facility] [address] [place] [address] Nate Castaneda MD [address] [place] [address] Health Maintenance Due Date Last Done Comments CT Colonography 1961 Colonoscopy 1961 FOBT 1961 Sigmoidoscopy 1961 Diabetes: Foot Exam 1971 Eye Exam 1971 RSV Patients and Patients Aged 60 years or older (1 - Risk 60-74 years 1-dose series) 2021 FIT 10/18/2022 10/18/2021 COVID-19 Vaccine ( season) 2023 12/18/2021, 10/08/2021, 02/11/2021, Additional history exists Cervical Cancer Screening 12/03/2023 HPV/Cotest 12/03/2023 12/02/2018 Pap Smear 12/03/2023 12/02/2018 Diabetes: Hemoglobin A1C 04/29/2024 024, 11/05/2023, 05/05/2023, Additional history exists Depression Screening 05/05/2024 05/05/2023, 05/05/19 24 Diabetes: Urine Protein Screening 05/05/2024 05/05/2023, 03/27/2021, 09/08/2019 SDOH Screening 05/05/2024 05/05/2023 Mammogram 09/13/2024 09/14/2023, 07/0 05/2022, 01/21/2021, Additional history exists Alcohol/Substance Use Screening 01/27/2025 01/28/2024 Lipid Panel 02/01/2025 02/02/2024, 11/08, 04/10/2022, Additional history exists Tobacco Screening 04/07/2025 04/07/2024 Colorectal Cancer Screening 12/06/2026 FIT DNA/Cologuard 12/06/2026 12/07/2023 DTaP/Tdap/Td Vaccines (2 - Td or Tdap) 10/30/2030 10/30/2020, 07/19/2009 Hepatitis B Vaccines Completed 01/22/2021, 10/30/2020, 10/02/2020 HIV Screening Completed 04/10/2022, 09/26/2020 Hepatitis C Screening Completed 04/10/2022, 021 Pneumococcal Vaccine: 50+ Years Completed 10/24/2022, 07/29/2009 Zoster Vaccines Completed 10/24/2022, 08/21/2022 Influenza Vaccine Completed 01/28/2024, , 01/22/2021, Additional history exists HIB Vaccines Aged Out No longer eligi ble based on patient's age to complete this topic HPV Vaccines Aged Out No longer eligi ble based on patient's age to complete this topic Hepatitis A Vaccines Aged Out No long er eligible based on patient's age to complete this topic IPV Vaccines Aged Out No longer eligi ble based on patient's age to complete this topic Meningococcal Vaccine Aged Out No boogie nimisha eligible based on patient's age to complete this topic RSV under 20 months Aged Out No longe r eligible based on patient's age to complete this topic Rotavirus Vaccines Aged Out No longer eligible based on patient's age to complete this topic Procedures Procedure Name Priority Date/Time Associated Diagnosis Comments LIPID PANEL, STANDARD Routine 02/02/2024 8:08 AM EST Type 2 diabetes mellitus with obesity (CMS/HCC) (CMS/HCC) BASIC METABOLIC PANEL Routine 02/02/2024 8:08 AM EST Benign hypertension POCT GLYCATED HEMOGLOBIN, TOTAL Routine 01/28/2024 2:18 PM EST Type 2 diabetes mellitus with obesity (CMS/HCC) (CMS/HCC) POCT GLUCOSE Routine 01/28/2024 2:11 PM EST Type 2 diabetes mellitus with obesity (CMS/HCC) (CMS/HCC) POCT OPHELIA-14 URINE DRUG SCREEN Routine 01/15/2024 10:04 AM EST Chronic bilateral low back pain without sciatica LAB COLOGUARD?? COLON CANCER SCREEN Routine 12/07/2023 8:45 AM EDT Colon cancer screening BI MAMMOGRAM SCREENING TOMOSYNTHESIS BILATERAL Routine 09/14/2023 11:03 AM EDT ALBUMIN, RANDOM URINE W/CREATININE Routine 05/05/2023 12:00 AM EST Diabetes mellitus type 2 in obese (CMS/HCC) HEPATITIS C AB W/REFL TO HCV RNA, QN, PCR Routine 04/10/2022 8:14 AM EST Diabetes mellitus type 2 in obese (CMS/HCC) HIV 1/2 ANTIGEN/ANTIBODY, FOURTH GENERATION W/RFL Routine 04/10/2022 8:14 AM EST Diabetes mellitus type 2 in obese (CMS/HCC) POCT FECAL IMMUNOCHEMICAL Routine 10/18/2021 3:01 PM EDT ZZZ HISTORICAL HPV MRNA E6/E7 Routine 12/02/2018 10:13 AM EDT HM PAP/HPV Routine 12/02/2018 from Last 3 Months or Most Recently Relevant to Health Maintenance Results * (ABNORMAL) Lipid Panel, Standard (02/02/2024 8:08 AM EST) Triglycerides 82 <150 mg/dL [facility] Comment:Desirable Triglyceri de: less than 150 mg/dLBorderline High Triglyceride 150-199 mg/dLHigh Triglyceride: 200-499 mg/dLVery High Triglyceride: greater than or equal to 5OO mg/dL Cholesterol 122 <200 mg/dL [facility] Comment:Desirable Cholestero l: less than 200 mg/dLBorderline High Cholesterol: 200-239 mg/dLHigh Cholesterol: greater than 239 mg/dL LDL Cholesterol Calculated 74 <100 mg/dL [facility] Comment:Desirable LDL: less than 100 mg/dLNear Optimal/Above Optimal LDL: 110- 129 mg/dLBorderline High LDL: 130-159 mg/dLHigh LDL: 160-189 mg/dLVery High LDL: greater than or equal to 190 mg/dL HDL Cholesterol 32(L) >40 mg/dL [facility] Comment:Desirable HDL: great er than 40 mg/dL Note: This HDL assay may give artificially low results in patients with liver disease. Blood Venous blood specimen / Unknown 02/02/2024 8:08 AM EST 02/02/2024 11:47 AM EST us Nate Mcdonald MD LAB BLOOD ORDERABLES Final Result [facility] [address] [place] [phone] * (ABNORMAL) Basic Metabolic Panel (02/02/2024 8:08 AM EST) Sodium 139 135 - 145 mmol/L [facility] Potassium 4.2 3.3 - 5.1 mmol/L [facility] Chloride 103 96 - 108 mmol/L [facility] Carbon Dioxide 29 22 - 29 mmol/L [facility] Anion Gap 11(L) 12 - 20 [facility] Urea Nitrogen (BUN) 11 9 - 16 mg/dL [facility] Creatinine, Serum 0.68 0.5 - 1.4 mg/dL [facility] Estimated Glomerular Filt Rate >60 [facility] Comment:Chronic Kidney Disea se: Estimated GFR < 60 mL/min/1.64w0Qdkyik Kidney Disease: Estimated GFR < 15 mL/min/1.73m2 Glucose 129(H) 60 - 115 mg/dL [facility] Calcium 9.7 8.4 - 10.2 mg/dL [facility] Blood Venous blood specimen / Unknown 02/02/2024 8:08 AM EST 02/02/2024 11:47 AM EST Nate Mcdonald MD LAB BLOOD ORDERABLES Final Result Performing Organization Address City/State/[facility] Co de Phone Number [facility] [address] [place] [phone] * (ABNORMAL) POCT HGB A1C (01/28/2024 2:18 PM EST) Hemoglobin A1C 8.3(A) 4.0 - 6.0 % QC Media Lot # [id number] Lot# Expiration Date , Blood 01/28/2024 2:18 PM EST Nate Mcdonald MD POINT OF CARE TEST EN TER/EDIT ORDERABLES Final Result * POCT Glucose (01/28/2024 2:11 PM EST) Pathologist [facility] Glucose Blood, POC 177 60 - 200 mg/dL [employer] Media Lot # [id number] Lot# Expiration Date [id number] Blood Capillary blood specimen / Unknown 01/28/2024 2:11 PM EST Nate Mcdonald MD POINT OF CARE TEST EN TER/EDIT ORDERABLES Final Result * POCT OPHELIA-14 Urine Drug Screen (01/15/2024 10:04 AM EST) Urine Urine specimen obtained by clean catch procedure / Unknown 01/15/2024 10:04 AM EST Narrative Angela Youssef RN - 01/15/2024 10:04 AM EST .UTOX cup Lot#[id number] Exp. 10/26/25 Internal Pass Control UTOX was negative for FENT Nate Mcdonald MD POINT OF CARE TEST EN TER/EDIT ORDERABLES Final Result * Cologuard?? colon cancer screening (12/07/2023 8:45 AM EDT) Cologuard Result Negative Negative 12/12/19 10:54 AM EDT [facility] (CLIA #:[id number]) Comment: NEGATIVE TEST RESULT. A negative Cologuard result indicates a low likelihood that a colorectal cancer (CRC) or advanced adenoma (adenomatous polyps with more advanced pre-malignant features) ??is present. The chance that a person with a negative Cologuard test has a colorectal cancer is less than 1 in 1500 (negative predictive value >99.9%) or has an ??advanced adenoma is less than ??5.3% (negative predictive value 94.7%). These data are based on a prospective cross-sectional study of 10,000 individuals at average risk for colorectal cancer who were screened with both Cologuard and colonoscopy. (Roxanne Ingram al, N Engl J Med 2014;370(14):1286- 1297) The normal value (reference range) for this assay is negative. COLOGUARD RE-SCREENING RECOMMENDATION: Periodic colorectal cancer screening is an important part of preventive healthcare for asymptomatic individuals at average risk for colorectal cancer. ??Following a negative Cologuard result, the [place] [employer] and U.S. Multi-Society Task Force screening guidelines recommend a Cologuard re-screening interval of 3 years. References: [place] [employer] Guideline for Colorectal Cancer Screening: https://www.cancer.org/cancer/skflq-enqtjl-wnafaq/udehwzrsm-roxrgpkeq-nnnfvcp/ac s-rec ommendations.html.; [place] DK, Chris CR, Luz Maria BlakeK, Colorectal Cancer Screening: Recommendations for Physicians and Patients from the U.S. Multi-Society Task Force on Colorectal Cancer Screening , Am J Gastroenterology 2017; 112:2879-2280. TEST DESCRIPTION: Composite algorithmic analysis of stool DNA-biomarkers with hemoglobin immunoassay. ?? Quantitative values of individual biomarkers are not reportable and are not associated with individual biomarker result reference ranges. Cologuard is intended for colorectal cancer screening of adults of either sex, 45 years or older, who are at average-risk for colorectal cancer (CRC). Cologuard has been approved for use by the U.S. FDA. The performance of Cologuard was established in a cross sectional study of average-risk adults aged 50-84. Cologuard performance in patients ages 45 to 49 years was estimated by sub-group analysis of near-age groups. Colonoscopies performed for a positive result may find as the most clinically significant lesion: colorectal cancer [4.0%], advanced adenoma (including sessile serrated polyps greater than or equal to 1cm diameter) [20%] or non- advanced adenoma [31%]; or no colorectal neoplasia [45%]. These estimates are derived from a prospective cross-sectional screening study of 10,000 individuals at average risk for colorectal cancer who were screened with both Cologuard and colonoscopy. (Roxanne Ingram al, N Engl J Med 2014;370(14):1733-1766.) Cologuard may produce a false negative or false positive result (no colorectal cancer or precancerous polyp present at colonoscopy follow up). A negative Cologuard test result does not guarantee the absence of CRC or advanced adenoma (pre-cancer). The current Cologuard screening interval is every 3 years. ([place] [employer] and U.S. Multi-Society Task Force). Cologuard performance data in a 10,000 patient pivotal study using colonoscopy as the reference method can be accessed at the following location: www.[employer]/results. Additional description of the Cologuard test process, warnings and precautions can be found at www.SphereUpog[employer]Point Communicationsrd.com. Stool specimen (specimen) 12/07/2023 8:45 AM EDT 12/08/2023 10:45 AM EDT us Nate Mcdonald MD LAB MOLECULAR DIAGNOS TICS ORDERABLES Final Result [facility] (CLIA #:[id number]) [place] [address], * BI Mammogram Screening Tomosynthesis Bilateral (09/14/2023 11:03 AM EDT) Anatomical Region Laterality Modality Breast Bilateral Mammography 09/14/2023 11:0 3 AM EDT Narrative 10/11/2023 3:25 PM EDT ? [facility] ? [address] ?[place], [place] [address] ? Mammography Report ? Signed ? Patient: Ramesh Gage,Eunice D ?MR# ?? : [id number] ? : 1960 ?Acct:[id number] ? Age/Sex: 63 / F ?ADM Date: 09/14/23 ? Loc: HO.MAMMO ? Attending Dr: Nate Dominguez MD ? Ordering Physician: Nate Dominguez MD ?Resu ?? lts: 2Benign Findings ? Date of Service: 09/14/23 ?Follow Up: 1 Year From Orig ?? inal Mammogram ? Procedure(s): MM tomosynthesis screening BI ?? Accession Number(s): [id number] ? cc: Nate Dominguez MD ? EXAMINATION: ?? MM SCREENING DIGITAL BREAST TOMOSYNTHESIS, BILATERAL ? CLINICAL INFORMATION: ? Screening. Asymptomatic. ? COMPARISON: ?? Mammography: This study is compared with prior exams dating back to ?? 2019. ? TECHNIQUE: ?? Digital breast tomosynthesis is performed in both the craniocaudal and ?? mediolateral oblique views along with computer-aided detection (CAD). ?? Synthesized 2D images are generated from the tomosynthesis. ? FINDINGS: ?? There are scattered areas of fibroglandular density (ACR BI-RADS breast ?? composition Category b). ? There are no significant masses, abnormal calcifications, or other ?? abnormalities. ?? Bilateral benign calcifications are present. ? MM/MM tomosynthesis screening BI ?? IMPRESSION: ?? No mammographic evidence of malignancy. ? ASSESSMENT: ? BI-RADS BI-RADS 2 - Benign Findings ? RECOMMENDATION: ?? Routine annual mammography screening. ? 1 year F/U ? This examination should not preclude the clinical evaluation of a ?? suspicious palpable abnormality. ? This patient's information was entered into a reminder system with a ?? target due date for their next mammogram. ? Dictated By: ?Miranda Davis MD ? Signed By: ?<Electronically signed by Miranda Davis MD in OV> ? 10/11/23 1522 ? DD/ 1103 ? TD/TT: ? Aviculturist: ? Procedure Note Giorgio Willard - 10/11/2023 [facility] [address] [place], [place] [address] Mammography Report Signed Patient: Eunice Romano DMR# : [id number] : 1Acct:[id number] Age/Sex: 63 / FADM Date: 09/14/23 Loc: NIKKI Attending Dr: Nate Dominguez MD Ordering Physician: Nate Dominguez MDResu lts: 2Benign Findings Date of Service: 09/14/23Follow Up: 1 Year From Orig inal Mammogram Procedure(s): MM tomosynthesis screening BI Accession Number(s): [id number] cc: Nate Dominguez MD EXAMINATION: MM SCREENING DIGITAL BREAST TOMOSYNTHESIS, BILATERAL CLINICAL INFORMATION: Screening. Asymptomatic. COMPARISON: Mammography: This study is compared with prior exams dating back to 2019. TECHNIQUE: Digital breast tomosynthesis is performed in both the craniocaudal and mediolateral oblique views along with computer-aided detection (CAD). Synthesized 2D images are generated from the tomosynthesis. FINDINGS: There are scattered areas of fibroglandular density (ACR BI-RADS breast composition Category b). There are no significant masses, abnormal calcifications, or other abnormalities. Bilateral benign calcifications are present. MM/MM tomosynthesis screening BI IMPRESSION: No mammographic evidence of malignancy. ASSESSMENT: BI-RADS BI-RADS 2 - Benign Findings RECOMMENDATION: Routine annual mammography screening. 1 year F/U This examination should not preclude the clinical evaluation of a suspicious palpable abnormality. This patient's information was entered into a reminder system with a target due date for their next mammogram. Dictated By: Miranda Davis MD Signed By: <Electronically signed by Miranda Davis MD in OV> 10/11/23 1522 DD/ 1103 TD/TT: Aviculturist: Nate Mcdonald MD IMG BI PROCEDURES Fin al Result * Albumin, Random Urine W/Creatinine (05/05/2023 12:00 AM EST) Creatinine, Urine 93.58 mg/dL [facility] Microalbumin Urine 6.0 mg/L [facility] Microalbum Creatinine Ratio Ur 6.4 <30 ug/mg cr [facility] Comment:Albumin/Creatinine R atio Reference Ranges: Normal: < 30 ug/mg creatinine Microalbuminuria: 30 - 300 ug/mg creatinineClinical Albuminuria: > 300 ug/mg creatinine Urine (Urine, Random) 05/05/2023 05/05/2023 Nate Mcdonald MD LAB URINE ORDERABLES Final Result [facility] [address] [place] [phone] * Hepatitis C Antibody with Reflex to HCV, RNA, Quantitative, Real-Time PCR (04/10/2022 8:14 AM EST) Hepatitis C Antibody NON-REACT JOHANN NON-REACT JOHANN [facility] Index <0.02 <1.00 [facility] Comment: HCV antibody was non-reactive. There is no laboratory evidence of HCV infection. In most cases, no further action is required. However, if recent HCV exposure is suspected, a test for HCV RNA (test code 46991) is suggested. For additional information please refer to http://education.Loyalis/faq/GAM98b6 (This link is being provided for informational/ educational purposes only.) Blood Venous blood specimen / Unknown 04/10/2022 8:14 AM EST 04/10/2022 8:14 AM EST Narrative [facility] - 04/10/2022 8:51 PM EST FASTING:YES FASTING: YES Nate Mcdonald MD LAB BLOOD ORDERABLES Final Result [facility] [address], [facility], [place] [address] [facility] [address], ([address]) [place] [address] * HIV-1/2 Antigen and Antibodies, Fourth Generation, with Reflexes (04/10/2022 8:14 AM EST) Pathologist [facility] HIV Antigen/Antibody, 4th Generation NON-REAC TIVE NON-REAC TIVE [employer] [place] [facility] [employer] Comment: HIV-1 antigen and HIV-1/HIV-2 antibodies were not detected. There is no laboratory evidence of HIV infection. PLEASE NOTE: This information has been disclosed to you from records whose confidentiality may be protected by state law. ??If your state requires such protection, then the state law prohibits you from making any further disclosure of the information without the specific written consent of the person to whom it pertains, or as otherwise permitted by law. A general authorization for the release of medical or other information is NOT sufficient for this purpose. ?? For additional information please refer to http://[employer].Loyalis/faq/VPP439 (This link is being provided for informational/ educational purposes only.) The performance of this assay has not been clinically validated in patients less than 2 years old. Blood Venous blood specimen / Unknown 04/10/2022 8:14 AM EST 04/10/2022 8:14 AM EST Narrative [facility] - 04/10/2022 8:51 PM EST FASTING:YES FASTING: YES Nate Mcdonald MD LAB BLOOD ORDERABLES Final Result [facility] [address] [place] [address], [facility], [place] [address] [employer] [facility] [address], ([address]) [place] [address] * POCT Fecal Immunochemical Test (10/18/2021 3:01 PM EDT) Fecal Immunochemical Test Nonreactive Stool Rectal contents / Unknown 10/18/2021 3:01 PM EDT Lena Guo - 10/18/2021 3:01 PM EDT Negative IFOBT card [facility] Provider POINT OF CARE TEST ENTER/ EDIT ORDERABLES Final Result * HPV mRNA E6/E7 (12/02/2018 10:13 AM EDT) HPV mRNA E6/E7 Not Detected NOT DETECTED [facility] Comment: This test was performed using the APTIMA(R) HPV Assay ([employer] This assay detects E6/E7 viral messenger RNA (mRNA) from 14 high-risk HPV types (16,18,31,33,35,39,45,51, 52,56,58,59,66,68). For additional information please refer to: http://education.Loyalis/faq/QZR290e6 (This link is being provided for informational/ educational purposes only.) The analytical performance characteristics of this assay have been determined by [employer] [employer] [place], [place]. The modifications have not been cleared or approved by the FDA. This assay has been validated pursuant to the CLIA regulations and is used for clinical purposes. Test Performed by [facility], [facility] [facility], [address] [place] [address] Nicolas Yepez M.D., Ph.D., Director of Laboratories , CLIA [id number] Please note: ??Effective 11/19/2015, HPV testing will be performed using [employer]'s APTIMA test which targets mRNA. Detecting mRNA instead of DNA, as in older methods, offers significant improvements in specificity. 12/02/2018 10:1 3 AM EDT Makayla Mcdermott CNM HISTORICAL/NON ORDERABLE LABS Final Result Performing Organization Address [facility]/State/[facility] Co az Phone Number [facility] [address] * Hm Pap Smear (12/02/2018) Pap smear NIL Historical Provider MD HEALTH MAINTENANCE Final Result from Last 3 Months or Most Recently Relevant to Health Maintenance Insurance [employer] C3 Care Teams Instructor Of Sociology Relationship Specialty Start Date End Date Nate Castaneda MD [address] [place] [phone] PCP - General Internal Medicine 12/15/13
--- OUTSIDE RECORDS SUMMARY | 2024-04-07 19:32 | XMS_ITS | Encounter Summary ---
Author Organization [employer] Address [address] [place] [address] Care Team Providers Care Textile Knitter Name Role Phone Nate Castaneda MD Primary Care Provide r Reason for Visit * Reason Onset Date Comments Med Refill 09/08/2022 Encounter Details Date Type Department Care Team ([facility] st Contact Info) Description 09/08/2022 Telephone [facility] [address] [place], [place] [phone] Nate Castaneda MD [address] [place], [place] [phone] Med Refill Social History Tobacco Use Types [...] Don't know 01/06/2022 10 :18 AM EDT COVID-19 Exposure Response Date Recorded In the last 10 days, have yo u been in contact with someone who was confirmed or suspected to have Coronavirus/COVID-19? No / Unsure 08/21/2022 12:40 PM EDT documented as of this encounter Miscellaneous Notes * Telephone Encounter - Franco Bland - 09/08/2022 9:42 AM EDT Tc from pt requesting a med refill for tramadol 50 mg documented in this encounter Plan of Treatment Upcoming Encounters Date Type Department Care Team (Late st Contact Info) Description 04/15/2024 9:30 AM EST Clinical Support [facility] [address] [place] [phone] Angela Youssef RN [address] [place] [address] 06/02/2024 10:00 AM EDT Office Visit [facility] [address] [place] [phone] Nate Castaneda MD [address] [place] [phone] documented as of this encounter Visit Diagnoses Not on filedocumented in this encounter Additional Health Concerns Assessment Noted Time PHQ-9 Depression Total Score: 0 04/03/19 23 11:21 AM EST documented as of this encounter Care Teams Textile Knitter Relationship Specialty Start Date End Date Nate Castaneda MD [address] [place] [phone] PCP - General Internal Medicine 12/15/13 documented as of this encounter
--- OUTSIDE RECORDS SUMMARY | 2024-04-07 19:32 | XMS_ITS | Encounter Summary ---
Author Organization [employer] Address [address] [place] [address] Care Team Providers Care Emergency Medical Service Manager Name Role Phone Nate Castaneda MD Primary Care Provide r Reason for Visit * Reason Onset Date Comments Med Refill 01/12/2023 Encounter Details Date Type Department Care Team ([facility] st Contact Info) Description 01/12/2023 Telephone [facility] [address] [place], [place] [phone] Nate Castaneda MD [address] [place], [place] [phone] Med Refill Social History Tobacco Use Types [...] * Telephone Encounter - Dina Roach - 01/12/2023 10:57 AM EST Tc from pt requesting med refill on traMADol (Ultram) 50 MG tablet documented in this encounter Plan of Treatment Upcoming Encounters Date Type Department Care Team (Late st Contact Info) Description 04/15/2024 9:30 AM EST Clinical Support [facility] [address] [place] [phone] Angela Youssef RN [address] [place] [address] 06/02/2024 10:00 AM EDT Office Visit [facility] [address] [place] [phone] Nate Castaneda MD [address] [place] [phone] documented as of this encounter Visit Diagnoses Not on filedocumented in this encounter Additional Health Concerns Assessment Noted Time PHQ-9 Depression Total Score: 0 04/03/19 23 11:21 AM EST documented as of this encounter Care Teams Emergency Medical Service Manager Relationship Specialty Start Date End Date Nate Castaneda MD [address] [place] [phone] PCP - General Internal Medicine 12/15/13 documented as of this encounter
--- OUTSIDE RECORDS SUMMARY | 2024-04-07 19:32 | XMS_ITS | Encounter Summary ---
Author Organization [employer] Address [address] 7t [place] [address] Care Team Providers Care High School Band Director Name Role Phone Nate Castaneda MD Primary Care Provide r Reason for Visit * Reason Onset Date Comments Med Refill 04/13/2023 Encounter Details Date Type Department Care Team ([facility] st Contact Info) Description 04/13/2023 Telephone [facility] MEDICINE 230 [place], [place] [phone] Nate Castaneda MD 230 [place], [place] [phone] Med Refill Social History Tobacco Use Types [...] encounter Miscellaneous Notes * Telephone Encounter - Kemalyolande Mayo - 04/13/2023 3:11 PM EST TC from pt requesting medication refill. Medications needing refill: traMADol (Ultram) 50 MG tablet To be sent to: [facility]/pharmacy #[id number] documented in this encounter Plan of Treatment Upcoming Encounters Date Type Department Care Team (Late st Contact Info) Description 04/15/2024 9:30 AM EST Clinical Support [facility] MED[facility]INE [address] [place] [phone] Angela Youssef, AMY 505 [place] [address] 06/02/2024 10:00 AM EDT Office Visit [facility] [address] [place] [address] Nate Castaneda MD [address] [place] [address] documented as of this encounter Visit Diagnoses Not on filedocumented in this encounter Additional Health Concerns Assessment Noted Time PHQ-9 Depression Total Score: 0 04/03/19 23 11:21 AM EST documented as of this encounter Care Teams High School Band Director Relationship Specialty Start Date End Date Nate Castaneda MD [address] [place] [address] PCP - General Internal Medicine 12/15/13 documented as of this encounter
--- OUTSIDE RECORDS SUMMARY | 2024-04-07 19:32 | XMS_ITS | Encounter Summary ---
Author Organization [employer] Address [address] 7t [place] [address] Care Team Providers Care Supervisor Stave Cutting Name Role Phone Nate Castaneda MD Primary Care Provide r Reason for Visit * Reason Onset Date Comments Med Refill 12/08/2022 Encounter Details Date Type Department Care Team ([facility] st Contact Info) Description 12/08/2022 Telephone [facility] MEDICINE 230 [place] [address] Nate Castaneda MD 230 [place], [place] [phone] Med Refill Social History Tobacco Use Types [...] * Telephone Encounter - Franco Bland - 12/08/2022 12:25 PM EDT Tc for pt requesting a refill for traMADol (Ultram) 50 MG tablet documented in this encounter Plan of Treatment Upcoming Encounters Date Type Department Care Team (Late st Contact Info) Description 04/15/2024 9:30 AM EST Clinical Support [address] [address] Angela Youssef RN 505 [place] [address] 06/02/2024 10:00 AM EDT Office Visit [facility] MEDICINE [address] [place] [address] Nate Castaneda MD [address] [place] [address] documented as of this encounter Visit Diagnoses Not on filedocumented in this encounter Additional Health Concerns Assessment Noted Time PHQ-9 Depression Total Score: 0 04/03/19 23 11:21 AM EST documented as of this encounter Care Teams Supervisor Stave Cutting Relationship Specialty Start Date End Date Nate Castaneda MD [address] [place] [address] PCP - General Internal Medicine 12/15/13 documented as of this encounter
--- OUTSIDE RECORDS SUMMARY | 2024-04-07 19:32 | XMS_ITS | Encounter Summary ---
Author Organization [employer] Address [address] [facility] 7t [place] [address] Care Team Providers Care Archives Technician Name Role Phone Ntae Castaneda MD Primary Care Provide r Reason for Visit * Reason Onset Date Comments Med Refill 08/08/2022 Encounter Details Date Type Department Care Team (Late st Contact Info) Description 08/08/2022 Refill [facility] MEDICINE 230 [place] [address] Nate Castaneda MD 230 [place] [address] Chronic low back pain without sciatica, unspecified [...] suspected to have Coronavirus/COVID-19? No / Unsure 07/22/2022 10:59 AM EDT documented as of this encounter Miscellaneous Notes * Telephone Encounter - Mimi Hassan - 08/08/2022 2:41 PM EDT Tc from pt requesting medication refill for traMADol (Ultram) 50 MG tablet documented in this encounter Plan of Treatment Upcoming Encounters Date Type Department Care Team (Late st Contact Info) Description 04/15/2024 9:30 AM EST Clinical Support [facility] MEDICINE [address] [place] [address] Angela Youssef RN 505 [place] [address] 06/02/2024 10:00 AM EDT Office Visit [facility] MED[facility]INE [address] [place] [address] Nate Castaneda MD [address] [place] [address] documented as of this encounter Visit Diagnoses Diagnosis Chronic low back pain without sciatica, unspecified back pain laterality documented in this encounter Additional Health Concerns Assessment Noted Time PHQ-9 Depression Total Score: 0 04/03/19 23 11:21 AM EST documented as of this encounter Care Teams Archives Technician Relationship Specialty Start Date End Date Nate Castaneda MD [address] [place] [address] PCP - General Internal Medicine 12/15/13 documented as of this encounter
--- OUTSIDE RECORDS SUMMARY | 2024-04-07 19:32 | XMS_ITS | Encounter Summary ---
Author Organization [employer] Address [address] [facility] [address] 7t [place] [address] Care Team Providers Care Fur Stretcher Name Role Phone Nate Castaneda MD Primary Care Provide r Encounter Details Date Type Department Care Team (Latest Contact Info) Description 04/07/2024 Travel Social History Tobacco Use Types Packs/Day Years [...] Description 04/15/2024 9:30 AM EST Clinical Support [facility] MEDICINE [address] [place] [address] Angela Youssef, AMY 505 [place] [address] 06/02/2024 10:00 AM EDT Office Visit [facility] MED[facility]INE [address] [place] [address] Nate Castaneda MD [address] [place] [address] documented as of this encounter Visit Diagnoses Not on filedocumented in this encounter Additional Health Concerns Assessment Noted Time PHQ-9 Depression Total Score: 5 05/05/19 24 11:43 AM EST documented as of this encounter Care Teams Fur Stretcher Relationship Specialty Start Date End Date Nate Castaneda MD [address] [place] [address] PCP - General Internal Medicine 12/15/13 documented as of this encounter
--- OUTSIDE RECORDS SUMMARY | 2024-04-07 19:32 | XMS_ITS | Encounter Summary ---
Author Organization [employer] Address [address] [facility] 7t [place] [address] Care Team Providers Care Marriage Performer Name Role Phone Nate Castaneda MD Primary Care Provide r Encounter Details Date Type Department Care Team (Late st Contact Info) Description 07/09/2022 Abstract [facility] MEDICINE [address] [place] [phone] Nate Castaneda MD 230 [place] [address] Social History Tobacco Use Types Packs/Day Years [...] 04/15/2024 9:30 AM EST Clinical Support [facility] MEDICINE [address] [place] [phone] Angela Youssef RN 505 [place] [address] 06/02/2024 10:00 AM EDT Office Visit [facility] MEDICINE [address] [place] [address] [phone] Nate Castaneda MD 230 [place] [address] documented as of this encounter Procedures Procedure Name Priority Date/Time Associated Diagnosis Comments POCT FECAL IMMUNOCHEMICAL Routine 10/18/2021 3:01 PM EDT documented in this encounter Results * POCT Fecal Immunochemical Test (10/18/2021 3:01 PM EDT) Fecal Immunochemical Test Nonreactive Stool Rectal contents / Unknown 10/18/2021 3:01 PM EDT Narrative Lena Cardoso - 10/18/2021 3:01 PM EDT Negative IFOBT card us Historical Provider POINT OF CARE TEST ENTER/ EDIT ORDERABLES Final Result documented in this encounter Visit Diagnoses Not on filedocumented in this encounter Additional Health Concerns Assessment Noted Time PHQ-9 Depression Total Score: 0 04/03/19 23 11:21 AM EST documented as of this encounter Care Teams Marriage Performer Relationship Specialty Start Date End Date Nate Castaneda MD [address] [facility] [address] PCP - General Internal Medicine 12/15/13 documented as of this encounter
--- OUTSIDE RECORDS SUMMARY | 2024-04-07 19:32 | XMS_ITS | Encounter Summary ---
Author Organization [employer] Address [address] 7t [place] [address] Care Team Providers Care Farm Laborer Name Role Phone Nate Castaneda MD Primary Care Provide r Reason for Visit * Reason Onset Date Comments Appointment Request 10/13/2023 Encounter Details Date Type Department Care Team ([facility] Contact Info) Description 10/13/2023 Telephone [facility] MEDICINE 230 [place], [place] [phone] Nate Castaneda MD 230 [place], [place] [phone] Appointment Request Social History Tobacco Use Types [...] encounter Miscellaneous Notes * Telephone Encounter - Mejiaangelo Baldo - 10/13/2023 10:14 AM EDT Tc from pt requesting to r/s group pain management appt scheduled for 10/20/23 @ 11am appt was cancelled. Please contact at [phone] Korean documented in this encounter Plan of Treatment Upcoming Encounters Date Type Department Care Team (Late st Contact Info) Description 04/15/2024 9:30 AM EST Clinical Support [facility] MEDICINE [address] [place] [phone] Angela Youssef RN 505 [place] [address] 06/02/2024 10:00 AM EDT Office Visit [facility] MEDICINE [address] [place] [address] Nate Castaneda MD [address] [place] [address] documented as of this encounter Visit Diagnoses Not on filedocumented in this encounter Additional Health Concerns Assessment Noted Time PHQ-9 Depression Total Score: 5 05/05/19 11:43 AM EST documented as of this encounter Care Teams Farm Laborer Relationship Specialty Start Date End Date Nate Castaneda MD 230 [place] [address] PCP - General Internal Medicine 12/15/13 documented as of this encounter
--- OUTSIDE RECORDS SUMMARY | 2024-04-07 19:32 | XMS_ITS | Encounter Summary ---
Author Organization [email or web address] Address [address] 7t [place] [address] Care Team Providers Care Microsystems Engineer Name Role Phone Nate Castaneda MD Primary Care Provide r Reason for Visit * Reason Onset Date Comments Med Refill 12/10/2023 Encounter Details Date Type Department Care Team ([facility] st Contact Info) Description 12/10/2023 Telephone [facility] MEDICINE 230 [place], [place] [phone] Nate Castaneda MD 230 [place], [place] [phone] Med Refill Social History Tobacco Use Types [...] * Telephone Encounter - Fabiana Barrett - 12/10/2023 9:47 AM EDT TC from pt requesting medication refill. Medications needing refill : traMADol (Ultram) 50 MG tablet To be sent to: [facility]/pharmacy #[address] [place] [address] documented in this encounter Plan of Treatment Upcoming Encounters Date Type Department Care Team (Late st Contact Info) Description 04/15/2024 9:30 AM EST Clinical Support [facility] MEDICINE [address] [place] [phone] Angela Youssef RN 505 [place] [address] 06/02/2024 10:00 AM EDT Office Visit [facility] MEDICINE [address] [place] [address] Nate Castaneda MD [address] [place] [address] documented as of this encounter Visit Diagnoses Not on filedocumented in this encounter Additional Health Concerns Assessment Noted Time PHQ-9 Depression Total Score: 5 05/05/19 24 11:43 AM EST documented as of this encounter Care Teams Microsystems Engineer Relationship Specialty Start Date End Date Nate Castaneda MD 230 [place] [address] PCP - General Internal Medicine 12/15/13 documented as of this encounter
--- OUTSIDE RECORDS SUMMARY | 2024-04-07 19:32 | XMS_ITS | Encounter Summary ---
Author Organization [employer] Address [address] [facility] [address] 7t [place] [address] Care Team Providers Care Department Mgr Name Role Phone Nate Castaneda MD Primary Care Provide r Reason for Visit * Reason Onset Date Comments Med Refill 09/08/2023 Encounter Details Date Type Department Care Team ([facility] st Contact Info) Description 09/08/2023 Telephone [facility] MEDICINE 230 [place], [place] [phone] Nate Castaneda MD 230 [place], [place] [phone] Med Refill Social History Tobacco Use Types [...] Telephone Encounter - Jaylene Ambrose LPN - 09/08/2023 10:31 AM EDT Medications pended to PCP. * Telephone Encounter - Paul Mcdonald - 09/08/2023 10:27 AM EDT TC from pt requesting medication refill. Medications needing refill : insulin glargine (Lantus SoloStar) 100 UNIT/ML pen and dulaglutide (Trulicity) 0.75 MG/0.5ML solution pen-injector To be sent to: [facility]/PHARMACY #[id number] [place] [address] documented in this encounter Plan of Treatment Upcoming Encounters Date Type Department Care Team (Late st Contact Info) Description 04/15/2024 9:30 AM EST Clinical Support [facility] MEDICINE [address] [place] [phone] Angela Youssef RN 505 [place], [place] [phone] 06/02/2024 10:00 AM EDT Office Visit [facility] MEDICINE [address] [place] [address] Nate Castaneda MD [address] [place] [address] documented as of this encounter Visit Diagnoses Not on filedocumented in this encounter Additional Health Concerns Assessment Noted Time PHQ-9 Depression Total Score: 5 05/05/19 24 11:43 AM EST documented as of this encounter Care Teams Department Mgr Relationship Specialty Start Date End Date Nate Castaneda MD 230 [place] [address] PCP - General Internal Medicine 12/15/13 documented as of this encounter
--- OUTSIDE RECORDS SUMMARY | 2024-04-07 19:32 | XMS_ITS | Encounter Summary ---
Author Organization [employer] Address [address] 7t [place] [address] Care Team Providers Care Swatch Cutter Name Role Phone Nate Castaneda MD Primary Care Provide r Reason for Visit * Reason Onset Date Comments Med Refill 12/23/2023 Encounter Details Date Type Department Care Team ([facility] st Contact Info) Description 12/23/[address] [facility] MEDICINE 230 [place] [address] Nate Castaneda MD 230 [place], [place] [phone] Med Refill Social History Tobacco Use Types [...] Telephone Encounter - Jaylene Ambrose LPN - 12/23/2023 2:25 PM EDT Medication pended to PCP. * Telephone Encounter - Fabiana Barrett - 12/23/2023 2:06 PM EDT TC from pt requesting medication refill. Medications needing refill : atorvastatin (Lipitor) 40 MG tablet To be sent to: [facility]/pharmacy #[id number] [place] [address] documented in this encounter Plan of Treatment Upcoming Encounters Date Type Department Care Team (Late st Contact Info) Description 04/15/2024 9:30 AM EST Clinical Support [facility] MEDICINE [address] [place] [phone] Angela Youssef RN 505 [place] [address] 06/02/2024 10:00 AM EDT Office Visit [facility] MEDICINE [address] [place] [address] Nate Castaneda MD 230 [place] [address] documented as of this encounter Visit Diagnoses Not on filedocumented in this encounter Additional Health Concerns Assessment Noted Time PHQ-9 Depression Total Score: 5 05/05/19 24 11:43 AM EST documented as of this encounter Care Teams Swatch Cutter Relationship Specialty Start Date End Date Nate Castaneda MD 230 [place] [address] PCP - General Internal Medicine 12/15/13 documented as of this encounter
[2024-04-08 10:40] LABS: Bacterial Vaginosis PCR NEGATIVE (Negative); Candida Group PCR NOT DETECTED (Not Detect); Candida glab krusei PCR NOT DETECTED (Not Detect); Trichomonas vaginalis PCR NOT DETECTED (Not Detect)
== END 2024-04-07 16:06 | disposition home or self-care (01) ==
LOC: HO.HHCLNP 16:05
PROVIDERS: Visit Provider Advanced Practice Midwife
DX: N89.8 Other specified noninflammatory disorders of vagina (principal)
CPT/HCPCS: 81515; 87626; 88175

== ENCOUNTER 2024-07-02 12:25 | Emergency (ER) | payer MEDICAID, SELFPAY ==
--- NOTE | ~2024-07-02 | CT_ITS ---
CLINICAL HISTORY: Headache CT head without contrast. COMPARISON: None FINDINGS: The visualized paranasal sinuses are clear. Fluid present within the left mastoid air cells. No evidence of mastoid air cell coalescence. No calvarial fracture. Atherosclerotic intracranial vasculature. No evidence for mass or mass effect. No intracranial hemorrhage or abnormal extra-axial fluid collection. Basal ganglia mineralization. No CT evidence of acute infarct. No evidence of hydrocephalus. The basilar cisterns are patent. There are periventricular areas of low attenuation compatible with mild white matter small vessel disease. Posterior fossa appears unremarkable. IMPRESSION: 1. No acute intracranial findings. 2. Fluid within the left mastoid air cells. Nonspecific finding can be associated with mastoiditis. This document has been electronically signed by: Tyshawn Koo MD on 07/02/2024 15:03:24
[2024-07-02 12:51] VITALS: BP 147/78; PULSE 96; RESP 18; TEMP 37.1; O2SAT 99; BMI 36.8
--- NOTE | 2024-07-02 12:54 | ED.GENADULT ---
HPI - General Adult General Chief complaint: Headache Stated complaint: R side headache x 1 wk / R side face swelling Time Seen by Provider: 07/02/24 13:31 Source: patient Mode of arrival: ambulatory Limitations: no limitations History of Present Illness ED Provider: DR. Nelson HPI narrative: 64-year-old female history of hypertension, DM, P AFib no anticoagulation, patient presented with 1 week of right-sided headache, headache is associated with right-sided facial swelling, no dental pain, patient feels pressure on her right side of the face, no nasal discharge, no fever, no chills. Related Data Home Medications ?Medication ?Instructions ?Recorded ?Confirmed cetirizine 10 mg capsule (Zyrtec) 10 mg PO DAILY 12/21/19 04/28/23 fluoxetine 20 mg capsule 20 mg PO DAILY 12/21/19 04/28/23 metformin 1,000 mg tablet 1,000 mg PO BID 12/21/19 04/28/23 metoprolol succinate 50 mg 50 mg PO DAILY 12/21/19 04/28/23 tablet,extended release 24 hr (Toprol XL) tramadol 50 mg tablet 50 mg PO BID PRN 12/21/19 04/28/23 losartan 50 mg tablet 50 mg PO QAM 04/09/21 04/28/23 dulaglutide 0.75 mg/0.5 mL 0.75 mg subcut QWEEK 07/14/22 04/28/23 subcutaneous pen injector (Trulicity) insulin glargine 100 unit/mL (3 50 unit subcut QAM 07/14/22 04/28/23 mL) subcutaneous pen (Lantus Solostar U-100 Insulin) Previous Rx's ?Medication ?Instructions ?Recorded cyanocobalamin (vitamin B-12) 500 500 mcg PO DAILY #30 tabs 05/24/21 mcg tablet clotrimazole 1 % topical cream 1 appl topical BID #28.4 grams 07/02/21 meclizine 25 mg tablet (Dramamine 25 mg PO TID PRN dizziness #20 tabs 09/09/21 Less Drowsy) atorvastatin 40 mg tablet 40 mg PO DAILY #90 tabs 09/12/21 ferrous fumarate 324 mg (106 mg 324 mg PO DAILY #90 tabs 07/22/22 iron) tablet (Ferrocite) naproxen 500 mg tablet 500 mg PO BID PRN pain #14 tabs 10/23/23 amoxicillin 875 mg-potassium 1 tab PO BID #20 tabs 07/02/24 clavulanate 125 mg tablet Allergies Allergy/AdvReac Type Severity Reaction Status Date / Time glipizide [GLIPIZIDE] Allergy Unknown HIVES Verified 07/02/24 12:56 lisinopril Allergy Unknown hives Verified 07/02/24 12:56 Review of Systems Review of Systems: All other systems are reviewed and are negative Constitutional: Reports as per HPI and Reports no additional constitutional complaints Eyes: Reports as per HPI and Reports no additional eye complaints Reports system reviewed and no additional complaints, except as documented Cardiovascular: Reports as per HPI and Reports no additional cardiovascular complaints Respiratory: Reports as per HPI and Reports no additional respiratory complaints Gastrointestinal: Reports as per HPI and Reports no additional gastrointestinal complaints Genitourinary: Reports no additional female genitourinary complaints Musculoskeletal: Reports no additional musculoskeletal complaints Skin/Breast: Reports system reviewed and no additional complaints, except as docu Psychiatric: Reports no additional psychiatric complaints Endocrine: Reports no additional endocrine complaints Hematologic/Lymphatic: Reports no additional hematologic/lymphatic complaints Allergic/Immunologic: Reports no additional allergic/immunologic complaints Reports system reviewed and no additional complaints, except as documented and Reports Abnormal speech present COUNTS INCLUDE 234 BEDS AT [facility] Past Medical History Medical History Panniculitis Tubal ligation evaluation GERD (gastroesophageal reflux disease) Atrial fib/flutter, transient Obesity Hyperlipidemia Depression Hypertension Type II dens fracture of second cervical vertebra Tongue disorder Surgical History Hx of oral surgery History of carpal tunnel surgery Previous section S/P laparoscopic sleeve gastrectomy Family History Family History Mother No problems noted. Father No problems noted. Social History Social History Alcohol intake: never Patient Tobacco Use Status: Former Tobacco user Smoked in Last 30 Days: No Use of substances other than those prescribed or required for medical reasons: No Advance Directives: No Advance Directives Information Provided: No Patient : No Physical Exam ED Vital Signs: Vital Signs - 24 hr 07/02/24 12:51 07/02/24 15:57 Temperature 98.8 F 97.9 F Pulse Rate 96 80 Respiratory Rate 18 16 Blood Pressure 147/78 H 136/59 L Pulse Oximetry 99 98 Oxygen Delivery Method Room Air Room Air BMI result Body Mass Index 36.8 Vital signs have been reviewed and appear to be correct. Blood pressure elevated. Heart rate normal. Respiratory rate normal. Temperature normal. Oxygen saturation normal. Appearance: Alert. Oriented X3. No acute distress. Head: Normal external exam. Normocephalic. Atraumatic. No Khan signs noted. No raccoon eyes noted. Facial exam: Right frontal/right maxillary sinus tenderness on percussion, no nasal discharge. Eyes: PERRLA. EOMI. Conjunctiva and sclera normal. Eyelids normal. ENT: TM's Normal. Pharynx normal. Uvula midline. Moist mucous membranes. No trismus noted. No drooling noted. No muffled voice noted. Tenderness over right maxillary/right frontal sinus pressure. Neck: Normal inspection. Neck supple. FROM. No adenopathy. Thyroid Normal. No meningeal signs. No neck mass noted. CVS: Normal heart rate and rhythm. Heart sound normal. No murmurs noted. Pulses normal throughout. Respiratory: No respiratory distress. Painless inspiration. Breath sounds normal. No wheezes/rales/rhonchi noted. Chest nontender. No accessory muscle usage noted or decreased air movement noted. Abdomen: Soft and nontender. Bowel sounds normal in all 4 quadrants. No distention noted. No organomegaly noted. No visible injury noted. Back: No CVA tenderness. Full range of motion noted. Skin: Skin warm and dry. Normal skin color. Normal skin turgor. No rashes/lesions/lacerations noted. Extremities: No lower extremity edema. Extremities exhibit normal range of motion. Extremities nontender. Neuro: Mental status: Normal attention, orientation, memory, and affect. Cranial nerves: Pupils are equal, round and reactive to light, EOMI, visual orozco are fall, face is symmetric, facial sensations are normal. Motor examination normal muscle tone, strength to 4 extremities. DTR are +2, planter's are flexor. Sensory exam; normal coordination, no ataxia, gait stable. Cerebellar exam: Kkwlfe-fr-cdsc and [id number]-mx-tnmf is normal. Extrapyramidal system: No tremors, no rigidity with normal facial expressions. Pronator drift not present Course Course Course Narrative: RME, this is a rapid medical exam performed by Steve Urias please refer to primary provider for complete H&P- 64-year-old female past medical history significant for hypertension, diabetes, paroxysmal AFib not anticoagulated, depression presents for evaluation of right-sided headache for the last week. She reports right-sided facial swelling. This is not appreciated on exam. Cranial nerves 2-12 intact. NIH stroke score of 0. Plan for labs including ESR to evaluate for temporal arteritis. There are no neuro deficits. Reevaluation(s) Reevaluation #1: Normal inflammatory markers sed rate and CRP, temporal arteritis is not likely, BP is slightly elevated with no concern of urgent or emergent hypertension. Physical exam is more concern of a right temporal and right maxillary sinusitis or start the patient on Augmentin. Time: 15:53 Medications Administered Discontinued Medications Generic Name Dose Route Start Last Admin Trade Name Freq PRN Reason Stop Dose Admin Amoxicillin/Clavulanate Potassium 875 mg 07/02/24 15:47 07/02/24 15:55 Amoxicillin/Potassium Clav 875 Mg Tablet PO 07/02/24 15:48 875 mg ONCE ONE Administration Ibuprofen 800 mg 07/02/24 15:47 07/02/24 15:55 Ibuprofen 800 Mg Tablet PO 07/02/24 15:48 800 mg ONCE ONE Administration Medical Decision Making Lab Data 07/02/24 13:09 07/02/24 13:09 Labs: Lab Results 07/02/24 Range/Units 13:09 WBC 7.4 (4.8-10.8) X10*3/uL RBC 4.66 (4.20-5.50) X10*6/uL Hgb 14.2 (12.0-16.0) g/dl Hct 41.7 (37.0-47.0) % MCV 89.5 (80.0-98.0) fL MCH 30.5 (27.0-33.0) pg MCHC 34.1 (31.0-35.0) g/dl RDW 13.2 (11.0-16.0) % Plt Count 236 (160-400) X10*3/uL MPV 11.7 (9.4-12.3) fL Immature Gran % (Auto) 0.4 (0.0-0.4) % Neut % (Auto) 62.0 (45-73) % Lymph % (Auto) 29.0 (20-40) % [place] % (Auto) 7.5 (2-11) % Eos % (Auto) 0.8 (0-4) % Baso % (Auto) 0.3 (0-2) % Lymph # (Auto) 2.2 (1.2-4.9) X10*3/uL [place] # (Auto) 0.6 (0.1-1.2) X10*3/uL Eos # (Auto) 0.1 (0.0-0.4) X10*3/uL Baso # (Auto) 0.0 (0.0-0.2) X10*3/uL Abs Immat Gran (auto) 0.03 (0.00-0.03) X10*3/uL Absolute Neuts (auto) 4.6 (2.0-8.3) x10*3/uL Absolute Nucleated RBC 0.000 (0.0-0.012) X10*3/uL Nucleated RBC % (auto) 0.0 (0.0-0.2) /100WBC ESR 13 (0-20) MM/HR Sodium 141 (135-145) mmol/L Potassium 4.5 (3.3-5.1) mmol/L Chloride 105 (96-108) mmol/L Carbon Dioxide 30 H (22-29) mmol/L Anion Gap 11 L (12-20) BUN 13 (9-16) mg/dL Creatinine 0.73 (0.5-1.4) mg/dL Estim Creat Clear Calc 79.7 Estimated GFR > 60 Random Glucose 195 H (60-115) mg/dL Calcium 9.6 (8.4-10.2) mg/dL Total Bilirubin 0.6 (0.0-1.0) mg/dL AST 29 (5-31) U/L ALT 37 H (0-31) U/L Alkaline Phosphatase 76 (39-117) U/L C-Reactive Protein 0.31 (< or = 0.50) mg/dL Total Protein 7.2 (6.5-8.0) g/dL Albumin 4.3 (3.5-5.0) g/dL Lipase 34 (8-78) U/L Discharge Plan Discharge Clinical Impression: Sinusitis, acute Patient Disposition: Home, Self-Care Instructions: Sinusitis (ED) Prescriptions: New amoxicillin-pot clavulanate 875-125 mg tablet 1 tab PO BID Qty: 20 0RF No Action cyanocobalamin (vitamin B-12) 500 mcg tablet 500 mcg PO DAILY Qty: 30 11RF atorvastatin 40 mg tablet 40 mg PO DAILY Qty: 90 3RF ferrous fumarate [Ferrocite] 324 mg (106 mg iron) tablet 324 mg PO DAILY Qty: 90 3RF meclizine [Dramamine Less Drowsy] 25 mg tablet 25 mg PO TID PRN (Reason: dizziness) Qty: 20 0RF naproxen 500 mg tablet 500 mg PO BID PRN (Reason: pain) Qty: 14 0RF Rx Instructions: Take with food metoprolol succinate [Toprol XL] 50 mg tablet extended release 24 hr 50 mg PO DAILY tramadol 50 mg tablet 50 mg PO BID PRN Zyrtec 10 mg capsule 10 mg PO DAILY fluoxetine 20 mg capsule 20 mg PO DAILY metformin 1,000 mg tablet 1,000 mg PO BID Lantus Solostar U-100 Insulin 100 unit/mL (3 mL) insulin pen 50 unit subcut QAM clotrimazole 1 % cream 1 appl topical BID Qty: 28.4 6RF losartan 50 mg tablet 50 mg PO QAM Trulicity 0.75 mg/0.5 mL pen injector 0.75 mg subcut QWEEK Interventions: ED Discharge Assessment Last Done: 07/02/24 16:08 Discharge Date/Time: 07/02/24 16:09 Print Language: Wolof
[2024-07-02 13:13] LABS: MANUAL DIFF FLAG NO
[2024-07-02 13:15] LABS: Basophils Percent Auto 0.3 % (0-2); Eosinophils Absolute Auto 0.1 X10*3/uL (0.0-0.4); Eosinophils Percent Auto 0.8 % (0-4); Hematocrit 41.7 % (37.0-47.0); Hemoglobin 14.2 g/dl (12.0-16.0); Imm Gran Abs Auto 0.03 X10*3/uL (0.00-0.03); Imm Gran Pct Auto 0.4 % (0.0-0.4); Lymphocytes Absolute Auto 2.2 X10*3/uL (1.2-4.9); Mean Corpuscular HGB Conc 34.1 g/dl (31.0-35.0); Mean Corpuscular Hemoglobin 30.5 pg (27.0-33.0); Mean Corpuscular Volume 89.5 fL (80.0-98.0); Mean Platelet Volume 11.7 fL (9.4-12.3); Monocytes Absolute Auto 0.6 X10*3/uL (0.1-1.2); Monocytes Percent Auto 7.5 % (2-11); Neutrophils Absolute Auto 4.6 x10*3/uL (2.0-8.3); Platelet Count 236 X10*3/uL (160-400); Red Blood Count 4.66 X10*6/uL (4.20-5.50); Red Cell Distribution Width 13.2 % (11.0-16.0); White Blood Count 7.4 X10*3/uL (4.8-10.8)
[2024-07-02 13:29] LABS: Alanine Aminotransferase 37 U/L (0-31); Albumin Level 4.3 g/dL (3.5-5.0); Alkaline Phosphatase 76 U/L (39-117); Anion Gap 11 (12-20); Aspartate Amino Transferase 29 U/L (5-31); Bilirubin Total 0.6 mg/dL (0.0-1.0); Blood Urea Nitrogen 13 mg/dL (9-16); Calcium 9.6 mg/dL (8.4-10.2); Carbon Dioxide 30 mmol/L (22-29); Chloride 105 mmol/L (96-108); Creatinine Clr Calc Pharmacy 79.7; Estimated Glomerular Filt Rate > 60; Glucose Random 195 mg/dL (60-115); Lipase 34 U/L (8-78); Potassium 4.5 mmol/L (3.3-5.1); Sodium 141 mmol/L (135-145); Total Protein 7.2 g/dL (6.5-8.0)
[2024-07-02 14:42] LABS: C Reactive Protein 0.31 mg/dL (< or = 0.50)
[2024-07-02 15:02] LABS: Erythrocyte Sedimentation Rate 13 MM/HR (0-20)
[2024-07-02] MEDS: Amoxicillin/Potassium Clav 875 MG TABLET PO (15:55)
[2024-07-02] MEDS: Ibuprofen 800 MG TABLET PO (15:55)
[2024-07-02 15:57] VITALS: BP 136/59; PULSE 80; RESP 16; TEMP 36.6; O2SAT 98
[2024-07-02 16:08] VITALS: BP 136/59; PULSE 80; RESP 16; TEMP 36.6; O2SAT 98
== END 2024-07-02 16:09 | disposition home or self-care (01) ==
PROVIDERS: Physician Assistant; Emergency Provider Emergency Medicine
DX: J01.90 Acute sinusitis, unspecified (principal); R51.9 Headache, unspecified; R22.1 Localized swelling, mass and lump, neck; Z79.899 Other long term (current) drug therapy
CPT/HCPCS: 36415; 70450; 80053; 83690; 85025; 85652; 86140; 99284

== ENCOUNTER → 2024-07-02 13:37 | Outpatient (BNV) | payer MEDICAID, SELFPAY | PROVIDERS: Emergency Provider Emergency Medicine; Visit Provider Radiology Diagnostic Radiology | DX: H74.8X2 Other specified disorders of left middle ear and mastoid (principal) | CPT/HCPCS: 70450 ==

== ENCOUNTER 2024-10-18 14:38 | Outpatient (AMB) | payer MEDICAID, SELFPAY ==
--- NOTE | 2024-10-18 15:00 | MHC.OFFVISWM ---
VS Expanded 10/18/24 15:15 BP 132/60 Blood Pressure Location Rt brachial Blood Pressure Position Sitting Pulse 82 Pulse Source Pulse Oximeter Temp 97.8 F Temperature Source Temporal Artery Scan Pulse Oximetry 95 Oxygen Delivery Method Room Air Height 5 ft 2 in Weight 192 lb 12.8 oz BMI 35.3 Body Fat % 37.0 Body Fat Mass 71.2 Fat Free Mass 121.4 Visceral Fat Rating 12.0 Body Water % 44.6 Body Water Mass 86.0 Muscle Mass/Score 115.4 Basal Metabolic Rate/Score 1,644 Intake Visit Reasons: OV PO LSG 10/29/17 Terminal Operations Supervisor Required: Yes Terminal Operations Supervisor Name: Misty Whitaker [phone] Information Interpreted: clinical only Allergies glipizide (GLIPIZIDE) Allergy (Unknown, Verified 10/18/24 15:11) HIVES lisinopril Allergy (Unknown, Verified 10/18/24 15:11) hives Medication List - Last Reconciled 10/18/24 by CHRISTIANE Shultz atorvastatin 40 mg PO DAILY cetirizine (Zyrtec) 10 mg PO DAILY clotrimazole 1% 1 appl topical BID dulaglutide (Trulicity) 0.75 mg subcut QWEEK fluoxetine 20 mg PO DAILY insulin glargine (Lantus Solostar U-100 Insulin) 50 units subcut QAM losartan 50 mg PO QAM metformin 1,000 mg PO BID metoprolol succinate ER (Toprol XL) 50 mg PO DAILY tramadol 50 mg PO BID PRN HPI Comments Details: This?is a?64?yo F who is s/p LSG 10/29/17. Presents for 7 year postop visit Weight loss of 5.2lb since last OV 2y ago.? No complaints of nausea, emesis, abdominal pain or reflux, or constipation. Does have a lot of gas pain. Reports blood sugars are well controlled. Present meal plan includes: avoids sweets, bread Not using protein shakes but did use Pure or Celebrate in the past will have coffee with soda crackers and sometimes eggs sometimes has lunch but sometimes not has not had much of an appetite since starting Trulicity Exercise routine includes: walks every day- 30 min [facility] Medical History Panniculitis Tubal ligation evaluation GERD (gastroesophageal reflux disease) Atrial fib/flutter, transient Obesity Hyperlipidemia Depression Hypertension Type II dens fracture of second cervical vertebra Tongue disorder Surgical History Hx of oral surgery History of carpal tunnel surgery Previous section S/P laparoscopic sleeve gastrectomy Family History Mother No problems noted. Father No problems noted. Social History Alcohol intake: never Patient Tobacco Use Status: Former Tobacco user Physical Exam Vital Signs: Last Vital Signs Temp 97.8 F 10/18/24 15:15 Pulse 82 10/18/24 15:15 BP 132/60 10/18/24 15:15 Pulse Ox 95 10/18/24 15:15 Oxygen Delivery Method Room Air 10/18/24 15:15 BMI result Body Mass Index 35.3 Assessment & Plan Assessment & Plan (1) S/P laparoscopic sleeve gastrectomy: Code(s): Z98.84 - Bariatric surgery status Category: Surgical (2) Obesity: Code(s): E66.9 - Obesity, unspecified Category: Medical Qualifiers: Obesity type: unspecified obesity type Obesity classification: adult class 2 (BMI 35 - 39.9) Serious obesity comorbidity presence: without serious comorbidity Body mass index: BMI 35.0-35.9 Qualified Code(s): E66.9 - Obesity, unspecified; Z68.35 - Body mass index [BMI] 35.0-35.9, adult Plan New meal plan: 2 eggs for breakfast Pure or Celebrate shake for lunch (in 8oz UAM)- 25g protein Dinner 6f/6f Labs ordered. She says she will get bloodwork done tmrw. Simethicone for gas pain. RTC 6mo. Gave pt my phone # to text me between appts with any questions. Orders: Orders Hemoglobin A1c Today E66.9 - Obesity, unspecified, Z68.35 - Body mass index [BMI] 35.0-35.9, adult, Z98.84 - Bariatric surgery status Insulin Today E66.9 - Obesity, unspecified, Z68.35 - Body mass index [BMI] 35.0-35.9, adult, Z98.84 - Bariatric surgery status Complete Blood Count Auto Diff Today E66.9 - Obesity, unspecified, Z68.35 - Body mass index [BMI] 35.0-35.9, adult, Z98.84 - Bariatric surgery status Lipid Panel Today E66.9 - Obesity, unspecified, Z68.35 - Body mass index [BMI] 35.0-35.9, adult, Z98.84 - Bariatric surgery status C Reactive Protein Today E66.9 - Obesity, unspecified, Z68.35 - Body mass index [BMI] 35.0-35.9, adult, Z98.84 - Bariatric surgery status Vitamin A Today E66.9 - Obesity, unspecified, Z68.35 - Body mass index [BMI] 35.0-35.9, adult, Z98.84 - Bariatric surgery status Ferritin Today E66.9 - Obesity, unspecified, Z68.35 - Body mass index [BMI] 35.0-35.9, adult, Z98.84 - Bariatric surgery status IRON PROFILE Today E66.9 - Obesity, unspecified, Z68.35 - Body mass index [BMI] 35.0-35.9, adult, Z98.84 - Bariatric surgery status Zinc Today E66.9 - Obesity, unspecified, Z68.35 - Body mass index [BMI] 35.0-35.9, adult, Z98.84 - Bariatric surgery status Vitamin B12 and Folate Today E66.9 - Obesity, unspecified, Z68.35 - Body mass index [BMI] 35.0-35.9, adult, Z98.84 - Bariatric surgery status Comprehensive Met. Panel Today E66.9 - Obesity, unspecified, Z68.35 - Body mass index [BMI] 35.0-35.9, adult, Z98.84 - Bariatric surgery status Vitamin B1 Today E66.9 - Obesity, unspecified, Z68.35 - Body mass index [BMI] 35.0-35.9, adult, Z98.84 - Bariatric surgery status Vitamin D 25-OH Total Today E66.9 - Obesity, unspecified, Z68.35 - Body mass index [BMI] 35.0-35.9, adult, Z98.84 - Bariatric surgery status TSH reflex Free T4 Today E66.9 - Obesity, unspecified, Z68.35 - Body mass index [BMI] 35.0-35.9, adult, Z98.84 - Bariatric surgery status Medications: New simethicone (Gas Relief (simethicone)) 80 mg PO BID-QID PRN 90 tabs 3RF abdominal distention
[2024-10-18 15:15] VITALS: BP 132/60; PULSE 82; TEMP 36.6; O2SAT 95; BMI 35.3
== END 2024-10-18 15:50 | disposition home or self-care (01) ==
PROVIDERS: PCP Internal Medicine; Visit Provider Physician Assistant Surgical
DX: E66.9 Obesity, unspecified (principal); Z68.35 Body mass index [BMI] 35.0-35.9, adult; Z90.3 Acquired absence of stomach [part of]; Z98.84 Bariatric surgery status
CPT/HCPCS: 99214

== ENCOUNTER → 2024-10-18 14:38 | Outpatient (BNVA) | payer MEDICAID, SELFPAY | PROVIDERS: PCP Internal Medicine; Visit Provider Physician Assistant Surgical | DX: Z98.84 Bariatric surgery status (principal); E66.9 Obesity, unspecified; Z68.35 Body mass index [BMI] 35.0-35.9, adult | CPT/HCPCS: 99212 ==

== ENCOUNTER 2024-10-21 07:10 | Outpatient (REF) | payer MEDICAID, SELFPAY ==
--- OUTSIDE RECORDS SUMMARY | 2021-01-24 04:03 | XMS_ITS | Continuity of Care Document ---
Author Organization [facility] Address [address] [place] [address] Phone Care Team Providers Care Charter Pilot Name Role Phone Aramis Jara MD Unavailable Unavailable Allergies, Adverse Reactions, Alerts Substance Reaction Status Criticality No Known Allergies Active No Inform ation Medications Medication Instructions Dosage Effective Dates (start - stop) Status Comments omeprazole 40 mg capsule,delayed release take 1 capsule by oral route every day before a meal 40 MG - Active Problems Condition Type Effective Dates (start - stop) Clini phil Status Comments No Known Problems Procedures Procedure Date OV, New Pt, Level III Laryngoscopy Flexible Diagnostic 2020 Advance Directives Directive Yes / No Effective Date File Name No Information Encounters Encounter Description Practice Location Reason(s) For Visit Diagnoses Date Provider Providers Copied on Encounter [facility], [address], [place], [place], [id number] , [place] tel: [phone] [facility] No Information Marek Self. [address], [address], [place], [place], [id number], [place]. tel:[phone] OV, New Pt, Level III [facility], [address], [place], [place], [id number] , [place] tel: [phone] [facility] Difficulty swallowing (chief complaint) Dysphagia, pharyngoesophagea l phaseGastro-esoph ageal reflux disease wi Marek Self. [address], [address], [place], [place], [id number], [place]. tel:[phone] Family History Family Member Type Diagnosis Age At Onset Family H /O Problem (finding) raised blood lipids Payers Payer name Insurance type Covered green party ID Orville vázquez(s) Meli [id number] Social History Type Description Quantity Date Captured Comments Sex Female Smoking Status No Information Chief Complaint And Reason For Visit No Information Reason For Referral Reason For Referral No Information History Of Present Illness Encounter Date Complaint History Of Prese nt Illness Difficulty swallowing It began 7 months ago. The symptoms are moderate and occur occasionally. The symptoms occur with solids and liquids with food sticking in the throat. The symptoms are felt to be related to meals. The patient is also experiencing choking and foreign body sensation in throat. The patient denies chest pain, cough, heartburn, hoarseness, nausea, sore throat or vomiting. Additional information: Pt is being referred because she had an US done in August of last year. Pt at time feels like food is getting stuck in her throat, occurs with any types of food. Functional Status Date Functional Assessmen t No Information Instructions Date Instruction Additional Infor simon You have evidence of laryngopharyngeal reflux. This is acid reflux from stomach that affects the throat. It can cause a dry cough, hoarseness, throat irritation. Patients often feel the need to clear her throat constantly.Will Begin Trial of PPI (Proton Pump Inhibitor). This medication works best if taken daily and on an empty stomach.Diet / Lifestyle Modifications:-Avoid Spicy and Acidic Foods. Avoid Coffee (including Decaf.), Chase Fruits, Chocolate, Alcohol and Soda.-Avoid Eating Late at night (Avoid Solid food 2 hours before lying down.)-Sleep with head elevated (Use 1-2 extra pillows) Related to Gastro-esophageal reflux disease wi 7 months of difficul ty swallowing. Feels food getting caught in the back of her throat. Occasionally has choking or coughing episodes. Happens with both solids and liquids.There is some moderate reflux on exam but otherwise her upper airway is within normal limits.We will start with a modified barium swallow if normal will consider GI evaluation Related to Dysphagia, pharyngoesophageal phase Assessments Type Assessment Date No Information Patient Care Teams Name Effective Dates (start - stop) Status Members No Information
[2024-10-21 07:30] LABS: MANUAL DIFF FLAG NO
[2024-10-21 08:39] LABS: Hematocrit 42.8 % (37.0-47.0); Hemoglobin 14.3 g/dl (12.0-16.0); Imm Gran Abs Auto 0.01 X10*3/uL (0.00-0.03); Imm Gran Pct Auto 0.1 % (0.0-0.4); Lymphocytes Absolute Auto 2.7 X10*3/uL (1.2-4.9); Mean Corpuscular HGB Conc 33.4 g/dl (31.0-35.0); Mean Corpuscular Hemoglobin 30.3 pg (27.0-33.0); Mean Corpuscular Volume 90.7 fL (80.0-98.0); NRBC Abs Auto 0.000 X10*3/uL (0.0-0.012); NRBC Pct Auto 0.0 /100WBC (0.0-0.2); Platelet Count 272 X10*3/uL (160-400); Red Blood Count 4.72 X10*6/uL (4.20-5.50); White Blood Count 7.5 X10*3/uL (4.8-10.8)
[2024-10-21 08:46] LABS: Hemoglobin A1C 202.6696 umol/L; Total Hemoglobin (HGBA1C) 3785.5299 umol/L
[2024-10-21 09:02] LABS: Anion Gap 12 (12-20)
[2024-10-21 09:10] LABS: Alanine Aminotransferase 35 U/L (0-31); Albumin Level 4.6 g/dL (3.5-5.0); Alkaline Phosphatase 86 U/L (39-117); Aspartate Amino Transferase 33 U/L (5-31); Blood Urea Nitrogen 10 mg/dL (9-16); Calcium 9.5 mg/dL (8.4-10.2); Carbon Dioxide 28 mmol/L (22-29); Chloride 106 mmol/L (96-108); Cholesterol 119 mg/dL (<200); Estimated Glomerular Filt Rate > 60; HDL Cholesterol 33 mg/dL (>40); Iron 94 mcg/dL (30-160); Percent Iron Saturation 29 % (15-50); Potassium 4.2 mmol/L (3.3-5.1); Sodium 142 mmol/L (135-145); Total Iron Binding Capacity 319 mcg/dL (228-428); Total Protein 7.5 g/dL (6.5-8.0); Triglycerides 71 mg/dL (<150); Unsaturated Iron Binding 225 ug/dL
[2024-10-21 09:36] LABS: Folate 11.9 ng/mL (> or = 4.0); Vitamin B12 182 pg/mL (200-900)
[2024-10-21 09:50] LABS: Ferritin 70 ng/mL (10-250)
== END 2024-10-21 07:11 | disposition home or self-care (01) ==
LOC: HO.LAB 07:10
PROVIDERS: PCP Internal Medicine; Visit Provider Physician Assistant Surgical
DX: E66.9 Obesity, unspecified (principal); Z68.35 Body mass index [BMI] 35.0-35.9, adult; Z98.84 Bariatric surgery status
CPT/HCPCS: 36415; 80053; 80061; 82306; 82607; 82728; 82746; 83036; 83525; 83540; 84425; 84443; 84590; 84630; 85025; 86140

== ENCOUNTER 2024-11-02 10:54 | Outpatient (REF) | payer MEDICAID, SELFPAY ==
--- NOTE | ~2024-11-02 | MM_ITS ---
EXAMINATION: MM SCREENING DIGITAL BREAST TOMOSYNTHESIS, BILATERAL CLINICAL INFORMATION: Screening. Asymptomatic. COMPARISON: Comparison made to multiple prior, most recent September 14, 2023, and most remote November 29, 2018. TECHNIQUE: Digital breast tomosynthesis is performed in mediolateral oblique and craniocaudal views along with computer-aided detection (CAD). FINDINGS: BREAST COMPOSITION: There are scattered areas of fibroglandular density (ACR BI-RADS breast composition Category b). BILATERAL BREASTS: No significant masses, suspicious calcifications or other abnormalities are seen in either breast. MM/MM tomosynthesis screening BI IMPRESSION: BILATERAL BREASTS: Negative, no mammographic evidence of malignancy. Normal interval follow-up is recommended in 12 months. ASSESSMENT: BI-RADS 1 - Negative RECOMMENDATION: Routine annual mammography screening. FOLLOW-UP: 1 year F/U This examination should not preclude the clinical evaluation of a suspicious palpable abnormality. This patient's information was entered into a reminder system with a target due date for their next mammogram. Electronically signed by: Enresto Quiros MD 11/05/2024 02:11 PM EDT
--- OUTSIDE RECORDS SUMMARY | 2024-11-02 11:48 | XMS_ITS | Encounter Summary ---
Author Organization [employer] Address [address] [facility] 7t [place] [address] Care Team Providers Care Certified Detention Deputy Name Role Phone Nate Castaneda MD Primary Care Provide r Reason for Visit * Reason Onset Date Comments Med Refill 09/08/2023 Encounter Details Date Type Department Care Team ([facility] st Contact Info) Description 09/08/2023 Telephone [facility] [address] [place] [address] Nate Castaneda MD 230 [place] [address] Med Refill Social History Tobacco Use Types [...] MG/0.5ML solution pen-injector To be sent to: [facility]/PHARMACY #[id number] documented in this encounter Plan of Treatment Upcoming Encounters Date Type Department Care Team (Late st Contact Info) Description 11/15/2024 1:30 PM EDT Office Visit [facility] [address] [place] [address] Nate Castaneda MD [address] [place] [address] 11/18/2024 11:30 AM EDT Clinical Support [facility] [address] [place] [address] Angela Youssef RN 505 [place] [address] documented as of this encounter Visit Diagnoses Not on filedocumented in this encounter Additional Health Concerns Assessment Noted Time PHQ-9 Depression Total Score: 5 05/05/19 24 11:43 AM EST documented as of this encounter Care Teams Certified Detention Deputy Relationship Specialty Start Date End Date Nate Castaneda MD 230 [place] [address] PCP - General Internal Medicine 12/15/13 documented as of this encounter
--- OUTSIDE RECORDS SUMMARY | 2024-11-02 11:48 | XMS_ITS | Encounter Summary ---
Author Organization [employer] Address [address] [facility] [address] 7t [place] [address] Care Team Providers Care Knitter Mechanic Name Role Phone Nate Castaneda MD Primary Care Provide r Reason for Visit * Reason Comments Med Refill Encounter Details Date Type Department Care Team ([facility] st Contact Info) Description 10/08/2024 Refill [facility] [address] [place], [place] [phone] Nate Castaneda MD 230 [place] [address] Chronic low back pain without sciatica, unspecified back pain laterality Social History Tobacco Use Types Packs/Day Years Used Date Smoking Tobacco: Never Passive Smoke Exposure: Never Smokeless Tobacco: Never Depression Answer Date Recorded Patient Health Questionnaire-9 Score 5 06/02/2024 Patient Health Questionnaire-9 Score 5 06/02/2024 Last PHQ-9: Questionnaire Data Not on file 0 06/02/2024 Housing Stability Answer Date Recorded What is your housing situation today? I have bull leos 05/26/[address] you li ve. Do you have problems with any of the following? None of the above 05/26/2024 Food Insecurity Answer Date Recorded Within the past 12 months, y ou worried that your food would run out before you got money to buy more: Never True 05/26/2024 Within the past 12 months,th e food you bought just didn't last and you didn't have enough money to get more: Never True Transportation Answer Date Recorded In the past 12 months, has l ack of transportation kept you from medical appts, meetings, work or from getting things needed for daily living? No 05/26/2024 Utilities Answer Date Recorded In the past 12 months, has t he electric, gas, oil or water company threatened to shut off services in your home? No 05/26/2024 Depression Answer Date Recorded Patient Health Questionnaire-2 Score 1 06/02/2024 Internet Access Answer Date Recorded Internet Access [...] Description 11/15/2024 1:30 PM EDT Office Visit [facility] MED[facility]INE [address] [place] [address] Nate Castaneda MD [address] [place] [address] 11/18/2024 11:30 AM EDT Clinical Support [facility] [address] [place] [phone] Angela Youssef, RN 505 [place] [address] documented as of this encounter Visit Diagnoses Diagnosis Chronic low back pain without sciatica, unspecified back pain laterality documented in this encounter Additional Health Concerns Assessment Noted Time PHQ-9 Depression Total Score: 5 06/03/19 25 10:03 AM EDT documented as of this encounter Care Teams Knitter Mechanic Relationship Specialty Start Date End Date Nate Castaneda MD [address] [place] [address] PCP - General Internal Medicine 12/15/13 documented as of this encounter
--- OUTSIDE RECORDS SUMMARY | 2024-11-02 11:48 | XMS_ITS | Encounter Summary ---
Author Organization [employer] Address [address] [facility] 7t [place] [address] Care Team Providers Care Solutions Consultant Name Role Phone Naet Castaneda MD Primary Care Provide r Reason for Visit * Reason Comments Med Refill Encounter Details Date Type Department Care Team ([facility] st Contact Info) Description 10/30/2024 Refill [facility] MED[facility]INE [address] [place] [address] Jaylene Velez DO 230 [place] [address] Benign hypertension Social History Tobacco Use Types [...] Description 11/15/2024 1:30 PM EDT Office Visit [facility] [address] [place] [address] Nate Castaneda MD [address] [place] [address] 11/18/2024 11:30 AM EDT Clinical Support [facility] [address] [place] [address] Angela Youssef, AMY [address] [place] [address] documented as of this encounter Visit Diagnoses Diagnosis Benign hypertension Essential hypertension, benign documented in this encounter Additional Health Concerns Assessment Noted Time PHQ-9 Depression Total Score: 5 06/03/19 25 10:03 AM EDT documented as of this encounter Care Teams Solutions Consultant Relationship Specialty Start Date End Date Nate Castaneda MD [address] [place] [address] PCP - General Internal Medicine 12/15/13 documented as of this encounter
--- OUTSIDE RECORDS SUMMARY | 2024-11-02 11:48 | XMS_ITS | Encounter Summary ---
Author Organization [employer] Address [address] [facility] 7t [place] [address] Care Team Providers Care Private Client Advisor Name Role Phone Nate Castaneda MD Primary Care Provide r Reason for Visit * Reason Onset Date Comments Med Refill 12/10/2023 Encounter Details Date Type Department Care Team ([facility] st Contact Info) Description 12/10/2023 Telephone [facility] MEDICINE 230 [place] [address] Nate Castaneda MD 230 [place], [place] [phone] Med Refill Social History Tobacco Use Types [...] 50 MG tablet To be sent to: [facility]/pharmacy #[address] [place] [address] documented in this encounter Plan of Treatment Upcoming Encounters Date Type Department Care Team ([facility] st Contact Info) Description 11/15/2024 1:30 PM EDT Office Visit [facility] MEDICINE [address] [place] [address] Nate Castaneda MD [address] [place] [address] 11/18/2024 11:30 AM EDT Clinical Support [facility] MEDICINE [address] [place] [phone] Angela Youssef RN [address] [place] [address] documented as of this encounter Visit Diagnoses Not on filedocumented in this encounter Additional Health Concerns Assessment Noted Time PHQ-9 Depression Total Score: 5 05/05/19 24 11:43 AM EST documented as of this encounter Care Teams Private Client Advisor Relationship Specialty Start Date End Date Nate Castaneda MD [address] [place] [address] PCP - General Internal Medicine 12/15/13 documented as of this encounter
--- OUTSIDE RECORDS SUMMARY | 2024-11-02 11:48 | XMS_ITS | Encounter Summary ---
Author Organization [employer] Address [address] [facility] 7t [place] [address] Care Team Providers Care Tie Knitter Helper Name Role Phone Nate Castaneda MD Primary Care Provide r Reason for Visit * Reason Onset Date Comments Med Refill 12/23/2023 Encounter Details Date Type Department Care Team ([facility] st Contact Info) Description 12/23/2023 Telephone [facility] MEDICINE 230 [place] [address] Nate Castaneda MD 230 [place] [address] Med Refill Social History Tobacco Use Types [...] 40 MG tablet To be sent to: [facility]/pharmacy #[id number] documented in this encounter Plan of Treatment Upcoming Encounters Date Type Department Care Team (Late st Contact Info) Description 11/15/2024 1:30 PM EDT Office Visit [facility] MED[facility]INE [address] [place] [phone] Nate Castaneda MD 230 [place] [address] 11/18/2024 11:30 AM EDT Clinical Support [facility] [address] [place] [phone] Angela Youssef RN [address] [place] [address] documented as of this encounter Visit Diagnoses Not on filedocumented in this encounter Additional Health Concerns Assessment Noted Time PHQ-9 Depression Total Score: 5 05/05/19 24 11:43 AM EST documented as of this encounter Care Teams Tie Knitter Helper Relationship Specialty Start Date End Date Nate Castaneda MD 230 [place] [address] PCP - General Internal Medicine 12/15/13 documented as of this encounter
--- OUTSIDE RECORDS SUMMARY | 2024-11-02 11:48 | XMS_ITS | Encounter Summary ---
Author Organization [employer] Address [address] [facility] 7t [place] [address] Care Team Providers Care Accounts Payable Administrator Name Role Phone Nate Castaneda MD Primary Care Provide r Reason for Visit * Reason Onset Date Comments Med Refill 09/09/2023 Encounter Details Date Type Department Care Team ([facility] st Contact Info) Description 09/09/2023 Telephone [facility] MEDICINE 230 [place] [address] Naet Castaneda MD 230 [place], [place] [phone] Med Refill Social History Tobacco Use Types [...] To be sent to: [facility]/pharmacy #[id number] [place], [place] - [address] [place] [address] documented in this encounter Plan of Treatment Upcoming Encounters Date Type Department Care Team (Late st Contact Info) Description 11/15/2024 1:30 PM EDT Office Visit [facility] MEDICINE [address] [place] [address] Nate Castaneda MD [address] [place] [address] 11/18/2024 11:30 AM EDT Clinical Support [facility] MEDICINE [address] [place] [address] Angela Youssef, AMY [address] [place] [address] documented as of this encounter Visit Diagnoses Not on filedocumented in this encounter Additional Health Concerns Assessment Noted Time PHQ-9 Depression Total Score: 5 05/05/19 24 11:43 AM EST documented as of this encounter Care Teams Accounts Payable Administrator Relationship Specialty Start Date End Date Nate Castaneda MD [address] [place] [address] PCP - General Internal Medicine 12/15/13 documented as of this encounter
--- OUTSIDE RECORDS SUMMARY | 2024-11-02 11:48 | XMS_ITS | Encounter Summary ---
Author Organization [employer] Address [address] [facility] 7t [place] [address] Care Team Providers Care Coil Former Name Role Phone Nate Castaneda MD Primary Care Provide r Reason for Visit * Reason Onset Date Comments Appointment Request 10/07/2024 Encounter Details Date Type Department Care Team ([facility] Contact Info) Description 10/07/2024 Telephone [facility] MEDICINE 230 [place], [place] [phone] Nate Castaneda MD [address] [place] [address] Appointment Request Social History Tobacco Use Types [...] encounter Miscellaneous Notes * Telephone Encounter - Kemal Gael - 10/07/2024 9:31 AM EDT Tc from pt requesting call back to reschedule ELECTRIC REPAIR SUPERVISOR visit. Please contact pt at [phone]. (Indian Speaker) documented in this encounter Plan of Treatment Upcoming Encounters Date Type Department Care Team (Late st Contact Info) Description 11/15/2024 1:30 PM EDT Office Visit [facility] MEDICINE [address] [place] [address] Nate Castaneda MD [address] [place] [address] 11/18/2024 11:30 AM EDT Clinical Support [facility] MED[facility]INE [address] [place] [address] Angela Youssef RN 505 [place] [address] documented as of this encounter Visit Diagnoses Not on filedocumented in this encounter Additional Health Concerns Assessment Noted Time PHQ-9 Depression Total Score: 5 06/03/19 25 10:03 AM EDT documented as of this encounter Care Teams Coil Former Relationship Specialty Start Date End Date Nate Castaneda MD [address] [place] [address] PCP - General Internal Medicine 12/15/13 documented as of this encounter
--- OUTSIDE RECORDS SUMMARY | 2024-11-02 11:48 | XMS_ITS | Encounter Summary ---
Author Organization [employer] Address [address] [facility] 7t [place] [address] Care Team Providers Care Golf Club Head Inspector And Adjuster Name Role Phone Nate Castaneda MD Primary Care Provide r Reason for Visit * Reason Onset Date Comments Med Refill 09/06/2024 Encounter Details Date Type Department Care Team ([facility] st Contact Info) Description 09/06/[address] [facility] MEDICINE 230 [place] [address] Nate Castaneda MD 230 [place], [place] [phone] Med Refill Social History Tobacco Use Types [...] encounter Miscellaneous Notes * Telephone Encounter - Adali Olivas - 09/06/2024 11:35 AM EDT TC from pt requesting medication refill. Medications needing refill : - traMADol (Ultram) 50 MG tablet To be sent to: - [facility]/pharmacy #[id number] documented in this encounter Plan of Treatment Upcoming Encounters Date Type Department Care Team (Late st Contact Info) Description 11/15/2024 1:30 PM EDT Office Visit [facility] MEDICINE [address] [place] [address] Nate Castaneda MD [address] [place] [address] 11/18/2024 11:30 AM EDT Clinical Support [facility] MEDICINE [address] [place] [phone] Angela Youssef RN 505 [place] [address] documented as of this encounter Visit Diagnoses Not on filedocumented in this encounter Additional Health Concerns Assessment Noted Time PHQ-9 Depression Total Score: 5 06/03/19 10:03 AM EDT documented as of this encounter Care Teams Golf Club Head Inspector And Adjuster Relationship Specialty Start Date End Date Nate Castaneda MD [address] [place] [address] PCP - General Internal Medicine 12/15/13 documented as of this encounter
--- OUTSIDE RECORDS SUMMARY | 2024-11-02 11:48 | XMS_ITS | Encounter Summary ---
Author Organization [employer] Address [address] [facility] 7t [place] [address] Care Team Providers Care Public Relations Associate Name Role Phone Nate Castaneda MD Primary Care Provide r Encounter Details Date Type Department Care Team (Latest Contact Info) Description 10/21/2024 Results Follow-Up [facility] MEDICINE 230 [place] [address] Candice Cho MD 230 [place] [address] CBC auto differential, Hemoglobin A1c, Comprehensive Metabolic Panel, Additional followed-up results: 8 Social History Tobacco Use Types Packs/Day Years [...] as of this encounter Miscellaneous Notes * Result Encounter Note - Candice Zepeda MD - 10/21/2024 8:50 PM EDT Covering PAQ: Labs done by outside provider documented in this encounter Plan of Treatment Upcoming Encounters Date Type Department Care Team (Late st Contact Info) Description 11/15/2024 1:30 PM EDT Office Visit [facility] MEDICINE [address] [place] [address] Nate Castaneda MD [address] [place] [address] 11/18/2024 11:30 AM EDT Clinical Support [facility] MEDICINE [address] [place] [phone] Angela Youssef RN [address] [place] [address] documented as of this encounter Visit Diagnoses Not on filedocumented in this encounter Additional Health Concerns Assessment Noted Time PHQ-9 Depression Total Score: 5 06/03/19 25 10:03 AM EDT documented as of this encounter Care Teams Public Relations Associate Relationship Specialty Start Date End Date Nate Castaneda MD [address] [place] [address] PCP - General Internal Medicine 12/15/13 documented as of this encounter
--- OUTSIDE RECORDS SUMMARY | 2024-11-02 11:48 | XMS_ITS | Encounter Summary ---
Author Organization [employer] Address [address] [facility] 7t [place] [address] Care Team Providers Care Coater Hand Name Role Phone Nate Castaneda MD Primary Care Provide r Encounter Details Date Type Department Care Team (Late st Contact Info) Description 07/09/2022 Abstract [facility] MEDICINE [address] [place] [phone] Nate Castaneda MD [address] [place] [address] [phone] Social History Tobacco Use Types Packs/Day Years [...] 11/15/2024 1:30 PM EDT Office Visit [facility] MEDICINE [address] [place] [address] [phone] Nate Castaneda MD [address] [place] [address] 11/18/2024 11:30 AM EDT Clinical Support [facility] MED[facility]INE [address] [place] [address] Angela Youssef, AMY [address] [place] [address] documented as of this encounter Procedures Procedure Name Priority Date/Time Associated Diagnosis Comments POCT FECAL IMMUNOCHEMICAL Routine 10/18/2021 3:01 PM EDT documented in this encounter Results * POCT Fecal Immunochemical Test (10/18/2021 3:01 PM EDT) Fecal Immunochemical Test Nonreactive Stool Rectal contents / Unknown 10/18/2021 3:01 PM EDT Narrative Janae, Lena - 10/18/2021 3:01 PM EDT Negative IFOBT card us Historical Provider MD POINT OF CARE TEST ENTER/ EDIT ORDERABLES Final Result documented in this encounter Visit Diagnoses Not on filedocumented in this encounter Additional Health Concerns Assessment Noted Time PHQ-9 Depression Total Score: 0 04/03/19 23 11:21 AM EST documented as of this encounter Care Teams Coater Hand Relationship Specialty Start Date End Date Nate Castaneda MD 230 [place] [address] PCP - General Internal Medicine 12/15/13 documented as of this encounter
--- OUTSIDE RECORDS SUMMARY | 2024-11-02 11:48 | XMS_ITS | Encounter Summary ---
Author Organization [employer] Address 75 [facility] 7t [place] [address] Care Team Providers Care Cataloging Assistant Name Role Phone Nate Castaneda MD Primary Care Provide r Reason for Visit * Reason Onset Date Comments Med Refill 09/25/2023 Encounter Details Date Type Department Care Team ([facility] st Contact Info) Description 09/25/2023 Telephone [facility] MEDICINE [address] [place] [address] Nate Castaneda MD 230 [place] [address] Med Refill Social History Tobacco Use Types [...] 10:50 AM EDT Zyrtec was sent to [facility] #[id number] on 05/26/23 #90 with 1 refill other medication pended to provider. * Telephone Encounter - Kemal Mayo - 09/25/2023 10:43 AM EDT TC from pt requesting medication refill. Medications needing refill: atorvastatin (Lipitor) 40 MG tablet cetirizine (ZyrTEC) 10 MG tablet metoprolol succinate XL (Toprol-XL) 50 MG 24 hr tablet To be sent to: [facility]/pharmacy #[id number] - [address] documented in this encounter Plan of Treatment Upcoming Encounters Date Type Department Care Team (Late st Contact Info) Description 11/15/2024 1:30 PM EDT Office Visit [facility] MEDICINE [address] [place] [address] [phone] Nate Castaneda MD [address] [place] [address] 11/18/2024 11:30 AM EDT Clinical Support [facility] MEDICINE [address] [place] [phone] Angela Youssef, AMY [address] [place] [address] documented as of this encounter Visit Diagnoses Not on filedocumented in this encounter Additional Health Concerns Assessment Noted Time PHQ-9 Depression Total Score: 5 05/05/19 24 11:43 AM EST documented as of this encounter Care Teams Cataloging Assistant Relationship Specialty Start Date End Date Nate Castaneda MD [address] [place] [address] PCP - General Internal Medicine 12/15/13 documented as of this encounter
--- OUTSIDE RECORDS SUMMARY | 2024-11-02 11:48 | XMS_ITS | Encounter Summary ---
Author Organization [employer] Address 75 [facility] 7t [place] [address] Care Team Providers Care Hydrogen Plant Operator Name Role Phone Nate Castaneda MD Primary Care Provide r Reason for Visit * Reason Onset Date Comments Med Refill 08/08/2022 Encounter Details Date Type Department Care Team ([facility] st Contact Info) Description 08/08/2022 Refill [facility] MEDICINE 230 [place] [address] Nate Castaneda MD 230 [place] [address] Chronic low back pain without sciatica, unspecified [...] Description 11/15/2024 1:30 PM EDT Office Visit [facility] MEDICINE [address] [place] [phone] Nate Castaneda MD [address] [place] [address] 11/18/2024 11:30 AM EDT Clinical Support [facility] MEDICINE [address] [place] [phone] Angela Youssef, RN [address] [place] [address] documented as of this encounter Visit Diagnoses Diagnosis Chronic low back pain without sciatica, unspecified back pain laterality documented in this encounter Additional Health Concerns Assessment Noted Time PHQ-9 Depression Total Score: 0 04/03/19 23 11:21 AM EST documented as of this encounter Care Teams Hydrogen Plant Operator Relationship Specialty Start Date End Date Nate Castaneda MD [address] [place] [address] PCP - General Internal Medicine 12/15/13 documented as of this encounter
--- OUTSIDE RECORDS SUMMARY | 2024-11-02 11:49 | XMS_ITS | Encounter Summary ---
Author Organization [employer] Address 75 [facility] 7t [place] [address] Care Team Providers Care Hvac Controls Technician Name Role Phone Nate Castaneda MD Primary Care Provide r Reason for Visit * Reason Onset Date Comments Med Refill 04/13/2023 Encounter Details Date Type Department Care Team ([facility] st Contact Info) Description 04/13/2023 Telephone [facility] MEDICINE 230 [place], [place] [phone] Nate Castaneda MD 230 [place], [place] [phone] Med Refill Social History Tobacco Use Types [...] * Telephone Encounter - Kemal Gael - 04/13/2023 3:11 PM EST TC from pt requesting medication refill. Medications needing refill: traMADol (Ultram) 50 MG tablet To be sent to: [facility]/pharmacy #[id number] documented in this encounter Plan of Treatment Upcoming Encounters Date Type Department Care Team (Late st Contact Info) Description 11/15/2024 1:30 PM EDT Office Visit [facility] MEDICINE [address] [place] [phone] Nate Castaneda MD [address] [place] [address] 11/18/2024 11:30 AM EDT Clinical Support [facility] MEDICINE [address] [place] [phone] Angela Youssef RN 505 [place] [address] documented as of this encounter Visit Diagnoses Not on filedocumented in this encounter Additional Health Concerns Assessment Noted Time PHQ-9 Depression Total Score: 0 04/03/19 23 11:21 AM EST documented as of this encounter Care Teams Hvac Controls Technician Relationship Specialty Start Date End Date Nate Castaneda MD [address] [place] [address] PCP - General Internal Medicine 12/15/13 documented as of this encounter
--- OUTSIDE RECORDS SUMMARY | 2024-11-02 11:49 | XMS_ITS | Encounter Summary ---
Author Organization [employer] Address 75 [facility] 7t [place] [address] Care Team Providers Care Film Or Videotape Editor Name Role Phone Nate Castaneda MD Primary Care Provide r Reason for Visit * Reason Onset Date Comments Med Refill 11/11/2022 Encounter Details Date Type Department Care Team ([facility] st Contact Info) Description 11/11/2022 Telephone [facility] MEDICINE 230 [place] [address] Nate Castaneda MD 230 [place] [address] Med Refill Social History Tobacco Use Types [...] Description 11/15/2024 1:30 PM EDT Office Visit [facility] MEDICINE [address] [place] [phone] Nate Castaneda MD [address] [place] [address] 11/18/2024 11:30 AM EDT Clinical Support [facility] MEDICINE [address] [place] [phone] Angela Youssef, AMY [address] [place] [address] documented as of this encounter Visit Diagnoses Not on filedocumented in this encounter Additional Health Concerns Assessment Noted Time PHQ-9 Depression Total Score: 0 04/03/19 23 11:21 AM EST documented as of this encounter Care Teams Film Or Videotape Editor Relationship Specialty Start Date End Date Nate Castaneda MD [address] [place] [address] PCP - General Internal Medicine 12/15/13 documented as of this encounter
--- OUTSIDE RECORDS SUMMARY | 2024-11-02 11:49 | XMS_ITS | Encounter Summary ---
Author Organization [employer] Address 75 [facility] 7t [place] [address] Care Team Providers Care Marine Tower Operator Name Role Phone Nate Castaneda MD Primary Care Provide r Reason for Visit * Reason Onset Date Comments Reschedule 04/29/2023 Encounter Details Date Type Department Care Team ([facility] st Contact Info) Description 04/29/2023 Telephone [facility] MEDICINE 230 [place] [address] Nate Catsaneda MD 230 [place] [address] Reschedule Social History Tobacco Use Types Packs/Day [...] Tc from pt requesting to r/s 05/01 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 Please contact pt at [phone] (Maltese) documented in this encounter Plan of Treatment Upcoming Encounters Date Type Department Care Team (Late st Contact Info) Description 11/15/2024 1:30 PM EDT Office Visit [facility] MEDICINE [address] [place] [phone] Nate Castaneda MD [address] [place] [address] 11/18/2024 11:30 AM EDT Clinical Support [facility] MEDICINE [address] [place] [address] Angela Youssef, AMY [address] [place] [address] documented as of this encounter Visit Diagnoses Not on filedocumented in this encounter Additional Health Concerns Assessment Noted Time PHQ-9 Depression Total Score: 0 04/03/19 11:21 AM EST documented as of this encounter Care Teams Marine Tower Operator Relationship Specialty Start Date End Date Nate Castaneda MD [address] [place] [address] PCP - General Internal Medicine 12/15/13 documented as of this encounter
--- OUTSIDE RECORDS SUMMARY | 2024-11-02 11:49 | XMS_ITS | Encounter Summary ---
Author Organization [employer] Address 75 [facility] 7t [place] [address] Care Team Providers Care Asw/Asuw Tactical Air Controller Name Role Phone Nate Castaneda MD Primary Care Provide r Reason for Visit * Reason Onset Date Comments Appointment Request 03/15/2024 Encounter Details Date Type Department Care Team ([facility] Contact Info) Description 03/15/2024 Telephone [facility] MEDICINE 230 [place], [place] [phone] Nate Castaneda MD 230 [place] [address] Appointment Request Social History Tobacco Use Types [...] April. If any questions contact pt at [phone] documented in this encounter Plan of Treatment Upcoming Encounters Date Type Department Care Team (Late st Contact Info) Description 11/15/2024 1:30 PM EDT Office Visit [facility] MEDICINE [address] [place] [phone] Nate Castaneda MD [address] [place] [address] 11/18/2024 11:30 AM EDT Clinical Support [facility] MEDICINE [address] [place] [phone] Angela Youssef RN [address] [place] [address] documented as of this encounter Visit Diagnoses Not on filedocumented in this encounter Additional Health Concerns Assessment Noted Time PHQ-9 Depression Total Score: 5 05/05/19 24 11:43 AM EST documented as of this encounter Care Teams Asw/Asuw Tactical Air Controller Relationship Specialty Start Date End Date Nate aCstaneda MD 230 [place] [address] PCP - General Internal Medicine 12/15/13 documented as of this encounter
--- OUTSIDE RECORDS SUMMARY | 2024-11-02 11:49 | XMS_ITS | Encounter Summary ---
Author Organization [employer] Address 75 [facility] 7t [place] [address] Care Team Providers Care Embossing Calender Operator Name Role Phone Nate Castaneda MD Primary Care Provide r Reason for Visit * Reason Onset Date Comments Appointment Request 08/16/2024 Encounter Details Date Type Department Care Team ([facility] Contact Info) Description 08/16/2024 Telephone [facility] MEDICINE 230 [place], [place] [phone] Nate Castaneda MD [address] [place] [address] Appointment Request Social History Tobacco Use Types [...] * Telephone Encounter - Jemma Copeland - 08/16/2024 1:21 PM EDT Tc from pt requesting a callback in regards cancelling her appointment with Angela , pt inform that date is her granddaughters graduation at that time if theres anything in the afternoon she will gladly assist. Please return call [phone] documented in this encounter Plan of Treatment Upcoming Encounters Date Type Department Care Team (Late st Contact Info) Description 11/15/2024 1:30 PM EDT Office Visit [facility] MEDICINE [address] [place] [address] aNte Castaneda MD [address] [place] [address] 11/18/2024 11:30 AM EDT Clinical Support [facility] MEDICINE [address] [place] [address] Angela Youssef RN [address] [place] [address] documented as of this encounter Visit Diagnoses Not on filedocumented in this encounter Additional Health Concerns Assessment Noted Time PHQ-9 Depression Total Score: 5 06/03/19 25 10:03 AM EDT documented as of this encounter Care Teams Embossing Calender Operator Relationship Specialty Start Date End Date Nate Castaneda MD [address] [place] [address] PCP - General Internal Medicine 12/15/13 documented as of this encounter
--- OUTSIDE RECORDS SUMMARY | 2024-11-02 11:49 | XMS_ITS | Encounter Summary ---
Author Organization [employer] Address 75 [facility] 7t [place] [address] Care Team Providers Care Lab Technician Name Role Phone Nate Castaneda MD Primary Care Provide r Reason for Visit * Reason Onset Date Comments Med Refill 06/20/2024 Encounter Details Date Type Department Care Team ([facility] st Contact Info) Description 06/20/2024 Telephone [facility] MEDICINE 230 [place] [address] Nate Castaneda MD 230 [place], [place] [phone] Med Refill Social History Tobacco Use Types [...] Telephone Encounter - Jaylene Ambrose LPN - 06/20/2024 11:10 AM EDT Medication pended to PCP. * Telephone Encounter - Harjinder Mcdonald - 06/20/2024 11:07 AM EDT TC from pt requesting medication refill. Medications needing refill : atorvastatin (Lipitor) 40 MG tablet To be sent to: [facility]/pharmacy #[id number] [place] [address] documented in this encounter Plan of Treatment Upcoming Encounters Date Type Department Care Team (Late st Contact Info) Description 11/15/2024 1:30 PM EDT Office Visit [facility] MEDICINE [address] [place] [address] Nate Castaneda MD [address] [place] [phone] 11/18/2024 11:30 AM EDT Clinical Support [facility] MEDICINE [address] [place] [phone] Angela Youssef RN [address] [place] [address] documented as of this encounter Visit Diagnoses Not on filedocumented in this encounter Additional Health Concerns Assessment Noted Time PHQ-9 Depression Total Score: 5 06/03/19 25 10:03 AM EDT documented as of this encounter Care Teams Lab Technician Relationship Specialty Start Date End Date Nate Castaneda MD [address] [place] [address] PCP - General Internal Medicine 12/15/13 documented as of this encounter
--- OUTSIDE RECORDS SUMMARY | 2024-11-02 11:49 | XMS_ITS | Encounter Summary ---
Author Organization [employer] Address [address] [place] [address] 7t [place] [address] Care Team Providers Care Windows Support Engineer Name Role Phone Nate Castaneda MD Primary Care Provide r Encounter Details Date Type Department Care Team (Late st Contact Info) Description 01/23/2022 Abstract [facility] MEDICINE [address] [place] [phone] ProviderMario MD Social History Tobacco Use Types [...] Description 11/15/2024 1:30 PM EDT Office Visit [address] [address] Nate Castaneda MD [address] [place] [address] 11/18/2024 11:30 AM EDT Clinical Support [address] [address] Angela Youssef RN 505 [place] [address] documented as of this encounter Procedures Procedure [...] on filedocumented in this encounter Care Teams Windows Support Engineer Relationship Specialty Start Date End Date Nate Castaneda MD [address] [place] [address] PCP - General Internal Medicine 12/15/13 documented as of this encounter
--- OUTSIDE RECORDS SUMMARY | 2024-11-02 11:49 | XMS_ITS | Clinical Summary ---
Author Organization [employer] Address [address] [place] [address] [address] [place] [address] Care Team Providers Care Insulation Cupola Charger Name Role Phone Nate Castaneda MD Primary Care Provide r Allergies Active Allergy Reactions Criticality Noted Date Comments Lisinopril Cough 02/05/2011 Medications acetaminophen (Tylenol) 500 MG tablet Take 500 mg by mouth if needed in the morning, at noon, and at bedtime. 08/02/19 20 Active EPINEPHrine (Epipen) 0.3 MG/0.3ML injection syringe Inject 0.3 mL into the shoulder, thigh, or buttocks if needed. 09/21/19 22 Active fluticasone (Flonase Allergy Relief) 50 MCG/ACT nasal spray Administer 1-2 sprays into affected nostril(s) if needed. 11/09/19 21 Active FLUoxetine (PROzac) 20 MG capsule Take 20 mg by mouth in the morning. 11/28/19 18 Active Ferrocite 324 MG tablet TOME SHILA TABLETA TODOS LOS D 01/29/20 22 Active triamcinolone (Kenalog) 0.025 % cream APLIQUE AL AREA AFECTADA DOS VECES AL LATONIA CUANDO SEA NECESARIO 60 g 02/18/20 23 Active metFORMIN (Glucophage) 1000 MG tablet TOME SHILA TABLETA DOS VECES AL LATONIA CON LAS COMIDAS EN LA MANANA & EN LA NOCHE 180 tablet 3 12/02/19 24 Active estradiol (Estrace) 0.1 MG/GM vaginal cream 1g vaginally x 14d, then twice weekly thereafter 45 g 2 04/08/19 25 Active BD ULTRA-FINE PEN NEEDLES 29G X 12.7MM miscIndications :Type 2 diabetes mellitus with obesity (CMS/HCC) ([facility]) Use to inject insulin once daily 100 each 3 06/03/19 25 Active losartan (Cozaar) 50 MG tablet TAKE 1 TABLET BY MOUTH EVERY MORNING 90 tablet 1 08/11/19 25 Active insulin glargine (Lantus SoloStar) 100 UNIT/ML penIndications: Type 2 diabetes mellitus with obesity (CMS/HCC) ([facility]) INYECTE 28 UNITS POR VIA SUBCUTANEA AL ACOSTARSE 15 mL 3 08/12/19 25 Active glucose blood (FREESTYLE LITE) test strip USE TO TEST BLOOD SUGAR FOUR TIMES A DAY 200 strip 11 08/12/19 25 Active Dulaglutide (Trulicity) 4.5 MG/0.5ML solution auto-injectorIn dications:Type 2 diabetes mellitus with obesity (CMS/HCC) ([facility]) Inject 4.5 mg under the skin 1 (one) time per week. 0.5 mL 3 09/02/19 25 Active atorvastatin (Lipitor) 40 MG tablet TOME 1 TABLETA POR VIA ORAL TODOS LOS NGUYEN 90 tablet 09/04/19 25 Active cetirizine (ZyrTEC) 10 MG tabletIndicatio ns:Allergic rhinitis, unspecified seasonality, unspecified trigger TAKE 1 TABLET BY MOUTH EVERY DAY NEEDED 90 tablet 1 09/07/19 25 Active traMADol (Ultram) 50 MG tabletIndicatio ns:Chronic low back pain without sciatica, unspecified back pain laterality Take 1 tablet (50 mg) by mouth every 12 (twelve) hours if needed for severe pain for up to 28 days. 56 tablet 10/11/19 25 025 Active metoprolol succinate XL (Toprol-XL) 50 MG 24 hr tabletIndicatio ns:Benign hypertension TAKE 1 TABLET BY MOUTH EVERY DAY 90 tablet 1 11/01/19 25 Active metoprolol succinate XL (Toprol-XL) 50 MG 24 hr tabletIndicatio ns:Benign hypertension TAKE 1 TABLET BY MOUTH EVERY DAY 90 tablet 07/06/19 25 025 Discontinued traMADol (Ultram) 50 MG tabletIndicatio ns:Chronic low back pain without sciatica, unspecified back pain laterality Take 1 tablet (50 mg) by mouth every 12 (twelve) hours if needed for severe pain for up to 28 days. 56 tablet 09/07/19 25 025 Discontinued(R eorder (will not trigger notification to [...] comorbidity in adult 04/03/2022 Assessment & Plan (06/02/2024 10:11 AM EDT): S/P LSG without hiatal hernia repair on 10/29/17 Under the care of the comprehensive weight management program. Dietary Recommendations: Fruits, vegetables, whole grains, protein foods, and fat-free or low-fat dairy products are healthy choices. Eat different types of protein foods in your diet. This can include seafood, lean meats, poultry, beans, peas, lentils, nuts, seeds, soy products, and eggs. Limit foods and beverages higher in added sugars, saturated fat, and sodium. Exercise Recommendations: At least 150 minutes of moderate-intensity physical activity per week, or an equivalent combination of moderate- and vigorous-intensity activity Assessment & Plan (05/05/2023 11:44 AM EST): [...] care of the comprehensive weight management program health care 03/06/2022 Assessment & Plan (06/02/2024 10:11 AM EDT): Pap 04/07/2024 NL repeat in 5 years. Mammogram 09/14/2023 Normal She had been referred to Dr. Avila for screening colonoscopy but keeps missing appointments since she does not want to do the procedure. IFOBTs 01/18/2020 negative. Cologard 12/07/2023 NEGATIVE Assessment & Plan (01/28/2024 2:14 PM EST): [...] 11:23 AM EST): evaluated byb ENT Dr Gan 01/18/2021 diagnosed with bilateral sensorineural hearing loss. He recommended considering amplification Type 2 diabetes mellitus with obesity ([facility]) 07/07/2017 Assessment & Plan (09/01/2024 2:02 PM EDT): Patient is here for a follow up. DM: She is on a regimen of: Lantus 28 units sc q pm, Metformin 1000 mg pom BID and Trulicity 3 once a week, Hgb A1c 09/01/2024 : 7.2 from 7.4 from 8.3 Actos and Glipizide were held after the Bariatric surgery Plan: Increase Trulicity to 4.5 mg weekly 3 months follow up Eye exam done on: 05/2023 Dr Cardenas, pt tells me has appointment in November Microalbumin checked on: 05/05/2023 was: 6 Pt on an ARB. Foot check risk of zero Pt reports compliance with Asa 81 mg po daily Pt was referred to our school vocational educator. but did not come Pt advised to: adhere to diabetic diet check your blood sugars regularly check your feet on a daily basis Assessment & Plan (06/02/2024 10:14 AM EDT): Patient is here for a follow up. DM: Improving She is on a regimen of: Lantus 20 units sc q pm, Metformin 1000 mg pom BID and Trulicity 3 once a week, Hgb A1c 06/02/2024 : 7.4 from 8.3 Actos and Glipizide were held after the Bariatric surgery Plan: Continue current regimen 3 months follow up Eye exam done on: 08/17/2015 Microalbumin checked on: 03/27/2021 will repeat was: 0.9 Pt on an ARB. Foot check risk of zero Pt reports compliance with Asa 81 mg po daily Pt was referred to our school vocational educator. but did not come Pt advised to: adhere to diabetic diet check your blood sugars regularly check your feet on a daily basis Assessment & Plan (01/28/2024 2:19 PM EST): [...] po daily Pt was referred to our school vocational educator. but did not come Pt advised [...] po daily Pt was referred to our school vocational educator. but did not come Pt advised [...] po daily Pt was referred to our school vocational educator. but did not come Pt advised [...] po daily Pt was referred to our school vocational educator. but did not come Pt advised [...] po daily Pt was referred to our school vocational educator. but did not come Pt advised [...] po daily Pt was referred to our school vocational educator. but did not come Pt advised [...] po daily Pt was referred to our school vocational educator. but did not come Pt advised [...] po daily Pt was referred to our school vocational educator. but did not come Pt advised to: adhere to diabetic diet check your blood sugars regularly check your feet on a daily basis Severe recurrent major depre ssion without psychotic features 07/07/2017 Assessment & Plan (06/02/2024 10:16 AM EDT): Here for a follow up She sees a therapist at [facility] her name is Celimar about once a month. and a psychiatrist Nichole Finney She is on Prozac 60 mg. and Klonopin. Today reports feels good. No suicidal ideation Assessment & Plan (05/05/2023 11:45 AM EST): Doing well She sees a therapist at [facility] her name is Kiera about once a month. and a psychiatrist Dina She is on Prozac 60mg. and Klonopin. Today reports feels good. No suicidal ideation Assessment & Plan (08/21/2022 12:59 PM EDT): Doing well She sees a therapist at [facility] her name is Kiera about once a month. and a psychiatrist Dina She is on Prozac 60mg. and Klonopin. Today reports feels good. No suicidal ideation Assessment & Plan (03/06/2022 11:23 AM EST): Doing well She sees a therapist at [facility] her name is Kiera about once a month. and a psychiatrist Dina SHe is on Prozac 60mg. and Klonopin. No suicidal ideation Cobalamin deficiency 10/25/2015 Allergic rhinitis 03/09/1959 Benign hypertension 03/09/1958 Assessment & Plan (09/01/2024 1:12 PM EDT): Patient is here for a follow up BP controlled on a regimen of: Losartan 50 mg PO daily, and Toprol XL 50 mg po daily (prescribed by cardiology ) Given adequate blood pressure control will continue with current medical regimen. Most recent electrolytes, Bun and Creatinine done on: Lab Results Component Value Date NA 139 02/02/2024 NA 142 12/25/2022 K 4.2 02/02/2024 K 4.0 12/25/2022 CL 103 02/02/2024 CL 105 12/25/2022 BUN 11 02/02/2024 BUN 8 (L) 12/25/2022 CREATININE 0.68 02/02/2024 CREATININE 0.65 12/25/2022 were within normal limits. Repeat BMP patient advised to adhere to a low sodium diet, encouraged about medication compliance, counseled about weight loss. Assessment & Plan (06/02/2024 10:09 AM EDT): Patient is here for a follow up BP controlled on a regimen of: Losartan 50 mg PO daily, and Toprol XL 50 mg po daily (prescribed by cardiology ) Given adequate blood pressure control will continue with current medical regimen. Most recent electrolytes, Bun and Creatinine done on: Lab Results Component Value Date NA 139 02/02/2024 NA 142 12/25/2022 K 4.2 02/02/2024 K 4.0 12/25/2022 CL 103 02/02/2024 CL 105 12/25/2022 BUN 11 02/02/2024 BUN 8 (L) 12/25/2022 CREATININE 0.68 02/02/2024 CREATININE 0.65 12/25/2022 were within normal limits. patient advised to adhere to a low sodium diet, encouraged about medication compliance, counseled about weight loss. Assessment & Plan (01/28/2024 2:14 PM EST): [...] Paroxysmal atrial fibrillation 03/09/1958 Assessment & Plan (06/02/2024 10:09 AM EDT): Last note from cardiology 04/28/2023 taken off of coumadin and placed on ASA. Assessment & Plan (05/05/2023 11:46 AM EST): [...] Encounters Date Type Department Care Team Description 10/30/2024 Refill [facility] [address] [place] [address] Jaylene Velez DO Benign hypertension 10/21/2024 Results Follow-Up [facility] [address] [place] [address] Candice Cho MD CBC auto differential, Hemoglobin A1c, Comprehensive Metabolic Panel, Additional followed-up results: 8 10/21/2024 Orders Only GENERIC EXTERNAL DATA DEPARTMENT Provider, Generic External Data 10/08/2024 Refill [facility] [address] [place] [address] Nate Castaneda MD Chronic low back pain without sciatica, unspecified back pain laterality 10/07/2024 Refill [facility] [address] [place] [address] Nate Castaneda MD Chronic low back pain without sciatica, unspecified back pain laterality 10/07/2024 Travel 10/07/2024 Telephone [facility] [address] [place] [address] Angela Youssef, AMY INSPECTOR FLOOR [employer] ASSEMBLY 10/07/2024 Telephone [facility] [address] [place] [address] Angela Youssef, AMY INSPECTOR [employer]LOOR [employer]SEMBLY 10/07/2024 Telephone [facility] [address] [place] [address] Nate Castaneda MD Appointment Request 09/06/2024 Refill [facility] [address] [facility] [place] [address] Angela Youssef, baggage agent low back pain without sciatica, unspecified back pain laterality 09/06/2024 Telephone [facility] [address], [place] [address] Nate Castaneda MD Med Refill 09/04/2024 Refill [facility] [address], [place] [address] Candice Cho MD Allergic rhinitis, unspecified seasonality, unspecified trigger 09/02/2024 Refill [facility] [address], [place] [address] Nate Castaneda MD 09/01/2024 2:00 PM EDT Office Visit [facility] [address], [place] [address] Nate Castaneda MD Type 2 diabetes mellitus with obesity (CMS/HCC) ([facility]) (Primary Dx); Benign hypertension 09/01/2024 Travel 08/31/2024 Telephone [facility] [address], [place] [address] Zenobia Jeffrey [place] 08/16/2024 Travel 08/16/2024 Telephone [facility] [address] [place] [address] Angela Youssef RN 08/16/2024 Telephone [facility] [address] [facility] [address] [place] [address] Nate Castaneda MD Appointment Request 08/11/2024 Telephone [facility] [address], [place] [address] Nate Castaneda MD Med Refill 08/11/2024 Refill [facility] [address], [place] [address] Candice Cho MD 08/11/2024 Refill [facility] [address], [place] [address] Nate Castaneda MD Type 2 diabetes mellitus with obesity ([facility]) ([facility]) 08/10/2024 Travel 08/10/2024 Refill [facility] [address] [place] [address] Angela Youssef RN Chronic low back pain without sciatica, unspecified back pain laterality 08/10/2024 Telephone [facility] [address] [place], [place] [phone] Nate Castaneda MD Med Refill 08/10/2024 Refill [facility] [address], [place] [phone] Ashly Hewitt MD 08/08/2024 Refill [facility] [address], [place] [phone] Nate Castaneda MD Type 2 diabetes mellitus with obesity ([facility]) ([facility]) from Last 3 Months Immunizations Immunization Administration Dates Next Due Hep B, adult [...] Ovarian cancer Neg Hx as of 04/07/19 Social History Tobacco Use Types Packs/Day Years [...] Sign Reading Time Taken Comments Blood Pressure 118/74 09/01/2024 1:42 PM EDT Pulse 75 09/01/2024 1:42 PM EDT Temperature 36.4 C (97.6 F) 09/01/2024 1:42 PM EDT Respiratory Rate 20 09/01/2024 1:42 PM EDT Oxygen Saturation 98% 09/01/2024 1:42 PM EDT Inhaled Oxygen Concentration - - Weight 90.1 kg (198 lb 9.6 oz) 09/01/2024 1:42 P M EDT Height 154.9 cm (5' 1 ) 09/01/2024 1:42 PM EDT Body Mass Index 37.53 09/01/2024 1:42 PM EDT Plan of Treatment Upcoming Encounters Date Type Department Care Team (Late st Contact Info) Description 11/15/2024 1:30 PM EDT Office Visit [facility] [address] [place] [phone] Nate Castaneda MD [address] [place] [address] 11/18/2024 11:30 AM EDT Clinical Support [facility] [address] [place] [phone] Angela Youssef, AMY [address] [place] [address] Health Maintenance Due Date Last Done Comments CT Colonography 1961 Colonoscopy 1961 FOBT 1961 Sigmoidoscopy 1961 Diabetes: Foot Exam 1971 Eye Exam 1971 RSV Patients and Patients Aged 60 years or older (1 - Risk 60-74 years 1-dose series) 2021 FIT 10/18/2022 10/18/2021 COVID-19 Vaccine ( season) 2023 12/18/2021, 10/08/2021, 02/11/2021, Additional history exists Diabetes: Urine Protein Screening 05/05/2024 05/05/2023, 03/27/2021, 09/08/2019 Mammogram 09/13/2024 09/14/2023, 07/0 05/2022, 01/21/2021, Additional history exists Influenza Vaccine (#1) 2024 , 12/18/2021, 01/22/2021, Additional history exists Diabetes: Hemoglobin A1C 01/21/2025 025, 09/01/2024, 06/02/2024, Additional history exists Alcohol/Substance Use Screening 01/27/2025 01/28/2024 Depression Screening 06/02/2025 06/02/2024, 06/03/19 SDOH Screening 06/02/2025 06/02/2024 Disability Screening 09/01/2025 09/01/2024 Tobacco Screening 09/01/2025 09/01/2024 Lipid Panel 10/21/2025 10/21/2024, 01/08, 12/04/2022, Additional history exists Colorectal Cancer Screening 12/06/2026 FIT DNA/Cologuard 12/06/2026 12/07/2023 Cervical Cancer Screening 04/07/2029 HPV/Cotest 04/07/2029 04/07/2024, 12/02/2018 Pap Smear 04/07/2029 04/07/2024, 12/02/2018 DTaP/Tdap/Td Vaccines (2 - Td or Tdap) 10/30/2030 10/30/2020, 07/19/2009 Hepatitis B Vaccines Completed 01/22/2021, 10/30/2020, 10/02/2020 HIV Screening Completed 04/10/2022, 09/26/2020 Hepatitis C Screening Completed 04/10/2022, 021 Pneumococcal Vaccine: 50+ Years Completed 10/24/2022, 07/29/2009 Zoster Vaccines Completed 10/24/2022, 08/21/2022 HIB Vaccines Aged Out No longer eligi [...] patient's age to complete this topic Meningococcal B Vaccine Aged Out No l onger eligible based on patient's age to complete [...] Procedure Name Priority Date/Time Associated Diagnosis Comments VITAMIN B1 Routine 10/21/2024 7:29 AM EDT VITAMIN A Routine 10/21/2024 7:29 AM EDT ZINC Routine 10/21/2024 7:29 AM EDT INSULIN Routine 10/21/2024 7:29 AM EDT TSH W/REFLEX TO FT4 Routine 10/21/2024 7 :29 AM EDT VITAMIN D,25-OH,TOTAL,IA Routine 10/21/2024 7:29 AM EDT FERRITIN Routine 10/21/2024 7:29 AM EDT VITAMIN B12/FOLATE, SERUM PANEL Routine 10/21/2024 7:29 AM EDT LIPID PANEL, STANDARD Routine 10/21/2024 7:29 AM EDT C-REACTIVE PROTEIN Routine 10/21/2024 7: 29 AM EDT IRON AND TOTAL IRON BINDING CAPACITY Routine 10/21/2024 7:29 AM EDT COMPREHENSIVE METABOLIC PANEL Routine 10/21/2024 7:29 AM EDT HEMOGLOBIN A1C Routine 10/21/2024 7:29 AM EDT CBC WITH AUTO DIFFERENTIAL Routine 10/21/2024 7:29 AM EDT POCT GLYCATED HEMOGLOBIN, TOTAL Routine 09/01/2024 1:50 PM EDT Type 2 diabetes mellitus with obesity (CMS/HCC) ([facility]) POCT GLUCOSE Routine 09/01/2024 1:46 PM EDT Type 2 diabetes mellitus with obesity (CMS/HCC) (CMS/HCC) PAP SMEAR Routine 04/07/2024 9:27 AM EST Cervical cancer screening HPV DNA, LOW/HIGH RISK Routine 12:00 AM EST LAB COLOGUARD COLON CANCER SCREEN Routine 12/07/2023 8:45 AM [...] FECAL IMMUNOCHEMICAL Routine 10/18/2021 3:01 PM EDT from Last 3 Months or Most Recently Relevant to Health Maintenance Results * Vitamin D, 25-Hydroxy, Total, Immunoassay (10/21/2024 7:29 AM EDT) Vitamin D 25-OH Total 37.1 >30 ng/mL [facility] Comment: Health Based Reference Values*< 20 ng/mL [id number] ng/mL Insufficient> 30 ng/mL Sufficient*Sal SONG. N Engl J Med. 2007;357:266-280There is no well-established upper level of normal vitamin Dlevels. Some laboratories use 50 ng/mL as an upper limit ofnormal. However, toxicity is patient-dependent and may occurat any level. Careful correlation with the patient'spresentation is necessary and, if there is concern forvitamin D toxicity, treatment should be consideredirrespective of the serum level.Care must be taken in interpreting Vitamin D results fromdifferent laboratories and methodologies. Published datademonstrated that results from patients undergoinghemodialysis may show a negative bias when tested withvarious automated 25-OH vitamin D assays when compared toLC-MS/MS.When testing samples from patients whose predominant form ofVitamin D is Vitamin D2, such as patients receiving VitaminD2 supplementation, results that are subtherapeutic shouldbe confirmed with another method such as LC-MS/MS. 10/21/2024 7:29 AM EDT 10/21/2024 7:29 AM EDT Generic External Data Provider LAB BLOOD ORDERAB LES Final Result Performing Organization Address [facility] Co de Phone Number [facility] [address] [place] [phone] * (ABNORMAL) Vitamin B12 (Cobalamin) and Folate Panel, Serum (10/21/2024 7:29 AM EDT) Pathologist [facility] Vitamin B12 182(L) 200 - 900 pg/mL [facility] Comment:NORMAL 200-900 PG/ML INDETERMINATE 160-199 PG/ML DEFICIENT < 160 PG/ML Folate 11.9 > or = 4.0 ng/mL [facility] Comment:Reference Values:> o r = 4.0 ng/mL< 4.0 ng/mL suggests folate deficiency Methotrexate, aminopterin and folinic acid(leucovorin) are chemotherapeutic agents whose molecularstructures are similar to folate; therefore, the Architectfolate assay cannot be used for patients using these drugs. 10/21/2024 7:29 AM EDT 10/21/2024 7:29 AM EDT Generic External Data Provider LAB BLOOD ORDERAB LES Final Result Performing Organization Address [facility] Co de Phone Number [facility] [address] [place] [phone] * TSH with Reflex to Free T4 (10/21/2024 7:29 AM EDT) TSH reflex Free T4 2.44 0.32 - 4.0 uIU/mL [facility] 10/21/2024 7:29 AM EDT 10/21/2024 7:29 AM EDT us Generic External Data Provider LAB BLOOD ORDERAB LES Final Result [facility] [address] [place] [phone] * (ABNORMAL) CBC auto differential (10/21/2024 7:29 AM EDT) Pathologist [facility] White Blood Count 7.5 4.8 - 10.8 X10*3/uL [facility] Red Blood Count 4.72 4.20 - 5.50 X10*6/uL [facility] Hemoglobin 14.3 12.0 - 16.0 g/dl [facility] Hematocrit 42.8 37.0 - 47.0 % [facility] Mean Corpuscular Volume 90.7 80.0 - 98.0 fL [facility] Mean Corpuscular Hemoglobin 30.3 27.0 - 33.0 pg [facility] Mean Corpuscular HGB Conc 33.4 31.0 - 35.0 g/dl [facility] Red Cell Distribution Width 13.3 11.0 - 16.0 % [facility] Platelet Count 272 160 - 400 X10*3/uL [facility] Mean Platelet Volume 12.7(H) 9.4 - 12.3 fL [facility] Neutrophils Percent Auto 55.2 45 - 73 % [facility] Imm Gran Pct Auto 0.1 0.0 - 0.4 % [facility] Lymphocytes Percent Auto 36.1 20 - 40 % [facility] Monocytes Percent Auto 7.0 2 - 11 % [facility] Eosinophils Percent Auto 1.2 0 - 4 % [facility] Basophils Percent Auto 0.4 0 - 2 % [facility] NRBC Pct Auto 0.0 0.0 - 0.2 /100WBC [facility] Neutrophils Absolute Auto 4.2 2.0 - 8.3 x10*3/uL [facility] Imm Gran Abs Auto 0.01 0.00 - 0.03 X10*3/uL [facility] Lymphocytes Absolute Auto 2.7 1.2 - 4.9 X10*3/uL [facility] Monocytes Absolute Auto 0.5 0.1 - 1.2 X10*3/uL [facility] Eosinophils Absolute Auto 0.1 0.0 - 0.4 X10*3/uL [facility] Basophils Absolute Auto 0.0 0.0 - 0.2 X10*3/uL [facility] NRBC Abs Auto 0.000 0.0 - 0.012 X10*3/uL [facility] 10/21/2024 7:29 AM EDT 10/21/2024 7:29 AM EDT Generic External Data Provider LAB BLOOD ORDERAB LES Final Result Performing Organization Address [place]/[facility] Co de Phone Number [facility] [address] [place] [phone] * Iron And Total Iron Binding Capacity (10/21/2024 7:29 AM EDT) Iron 94 30 - 160 mcg/dL [facility] Total Iron Binding Capacity 319 228 - 428 mcg/dL [facility] Percent Iron Saturation 29 15 - 50 % [facility] Unsaturated Iron Binding 225 ug/dL [facility] 10/21/2024 7:29 AM EDT 10/21/2024 7:29 AM EDT us Generic External Data Provider LAB BLOOD ORDERAB LES Final Result Performing Organization Address [facility]/ZIP Co de Phone Number [facility] [address] [place] [phone] * Insulin (10/21/2024 7:29 AM EDT) Pathologist [facility] Insulin 26 2 - 29 uU/mL [facility] Comment:This test was perfor med using the Soto chemiluminescentmethod. Values obtained from different assay methods cannot beused interchangeably. This insulin assay shows a possiblecross-reactivity with antibodies generated against insulin(immunoreactive insulin and some patients treated withbovine or porcine insulin). Insulin levels may be measuredlower in patients with insulin autoimmune syndrome orfamilial high pro-insulinemia. 10/21/2024 7:29 AM EDT 10/21/2024 7:29 AM EDT Generic External Data Provider LAB BLOOD ORDERAB LES Final Result Performing Organization Address [facility] de Phone Number [facility] [address] [place] [address] [phone] * Zinc (10/21/2024 7:29 AM EDT) [facility] Zinc 95 60 - 130 mcg/dL [facility] Comment:This test was develo ped and its analytical performancecharacteristics have been determined by [employer] [place], [place]. It hasnot been cleared or approved by the U.S. Food and DrugAdministration. This assay has been validated pursuantto the CLIA regulations and is used for clinicalpurposes.THIS TEST WAS PERFORMED AT:[employer] [place] [address]DRKMLSRGAMAL GAN MD,PHD 10/21/2024 7:29 AM EDT 10/21/2024 7:29 AM EDT Generic External Data Provider LAB BLOOD ORDERAB LES Final Result Performing Organization Address [facility] Co de Phone Number [facility] [address] [place] [phone] * Vitamin A (10/21/2024 7:29 AM EDT) [facility] Vitamin A (Retinol) 46 38 - 98 mcg/dL [facility] Comment:Vitamin supplementat ion within 24 hours prior toblood draw may affect the accuracy of the results.This test was developed and its analytical performancecharacteristics have been determined by [facility] [place], [place]. It hasnot been cleared or approved by the U.S. Food and DrugAdministration. This assay has been validated pursuantto the CLIA regulations and is used for clinicalpurposes.THIS TEST WAS PERFORMED AT:[employer] [place] [address]MZDELRMGAMAL GAN MD,PHD 10/21/2024 7:29 AM EDT 10/21/2024 7:29 AM EDT Generic External Data Provider LAB BLOOD ORDERAB LES Final Result Performing Organization Address [facility] Co de Phone Number [facility] [address] [place] [phone] * C-reactive Protein (10/21/2024 7:29 AM EDT) C Reactive Protein 0.34 < or = 0.50 mg/dL [facility] 10/21/2024 7:29 AM EDT 10/21/2024 7:29 AM EDT Generic External Data Provider LAB BLOOD ORDERAB LES Final Result Performing Organization Address [facility] Co de Phone Number [facility] [address] [place] [phone] * (ABNORMAL) Vitamin B1 (10/21/2024 7:29 AM EDT) Vitamin B1 6(A) 8 - 30 nmol/L [facility] Comment:Vitamin supplementat ion within 24 hours prior toblood draw may affect the accuracy of the results.This test was developed and its analytical performancecharacteristics have been determined by [facility] [place], [place]. It hasnot been cleared or approved by the U.S. Food and DrugAdministration. This assay has been validated pursuantto the CLIA regulations and is used for clinicalpurposes.THIS TEST WAS PERFORMED AT:[employer]/[facility] [id number] [place] [address]SCJZSJVGAMAL GAN MD,PHD 10/21/2024 7:29 AM EDT 10/21/2024 7:29 AM EDT Generic External Data Provider LAB BLOOD ORDERAB LES Final Result Performing Organization Address [facility]/ZIP Co de Phone Number [facility] [address] [place] [phone] * (ABNORMAL) Hemoglobin A1c (10/21/2024 7:29 AM EDT) Hemoglobin A1c 7.0(H) <6.0 % [facility] Comment:Hemoglobin A1C Refer ence Range Adults: 4.8 - 6.0 % Non diabetic: < 6.0 % Goal: < 7.0 %Additional Action Suggested: > 8.0 %Note: Hemoglobin A1c results are invalid for patients with abnormal amounts of HbF. Blood transfusions may impact the HbA1c concentration in the patient sample. Estimated Average Glucose 154 mg/dL [facility] Comment:eAG = Estimated ave rage glucose which is %A1C expressed asaverage glucose, using the formula of the S5I-SventxuRtgjcxj Glucose study (ADAG), Diabetes Care, Vol.31,#8,Oct. 2007 10/21/2024 7:29 AM EDT 10/21/2024 7:29 AM EDT Generic External Data Provider LAB BLOOD ORDERAB LES Final Result Performing Organization Address [facility] Co de Phone Number [facility] [address] [place] [phone] * Ferritin (10/21/2024 7:29 AM EDT) Ferritin 70 10 - 250 ng/mL [facility] 10/21/2024 7:29 AM EDT 10/21/2024 7:29 AM EDT Generic External Data Provider LAB BLOOD ORDERAB LES Final Result Performing Organization Address City/[facility] Co de Phone Number [facility] [address] [place] [phone] * (ABNORMAL) Lipid Panel, Standard (10/21/2024 7:29 AM EDT) Triglycerides 71 <150 mg/dL [facility] Comment:Desirable Triglyceri de: less than 150 mg/dLBorderline High Triglyceride 150-199 mg/dLHigh Triglyceride: 200-499 mg/dLVery High Triglyceride: greater than or equal to 5OO mg/dL Cholesterol 119 <200 mg/dL [facility] Comment:Desirable Cholestero l: less than 200 mg/dLBorderline High Cholesterol: 200-239 mg/dLHigh Cholesterol: greater than 239 mg/dL LDL Cholesterol Calculated 72 <100 mg/dL [facility] Comment:Desirable LDL: less than 100 mg/dLNear Optimal/Above Optimal LDL: 110- 129 mg/dLBorderline High LDL: 130-159 mg/dLHigh LDL: 160-189 mg/dLVery High LDL: greater than or equal to 190 mg/dL HDL Cholesterol 33(L) >40 mg/dL [facility] Comment:Desirable HDL: great er than 40 mg/dL Note: This HDL assay may give artificially low results in patients with liver disease. 10/21/2024 7:29 AM EDT 10/21/2024 7:29 AM EDT us Generic External Data Provider LAB BLOOD ORDERAB LES Final Result Performing Organization Address City/[facility]/ZIP Co de Phone Number [facility] [address] [place] [phone] [phone] * (ABNORMAL) Comprehensive Metabolic Panel (10/21/2024 7:29 AM EDT) Sodium 142 135 - 145 mmol/L [facility] Potassium 4.2 3.3 - 5.1 mmol/L [facility] Chloride 106 96 - 108 mmol/L [facility] Carbon Dioxide 28 22 - 29 mmol/L [facility] Anion Gap 12 12 - 20 [facility] Urea Nitrogen (BUN) 10 9 - 16 mg/dL [facility] Creatinine, Serum 0.65 0.5 - 1.4 mg/dL [facility] Estimated Glomerular Filt Rate >60 [facility] Comment:Chronic Kidney Disea se: Estimated GFR < 60 mL/min/1.53w3Vvypiw Kidney Disease: Estimated GFR < 15 mL/min/1.73m2 Glucose 119(H) 60 - 115 mg/dL [facility] Calcium 9.5 8.4 - 10.2 mg/dL [facility] Bilirubin, Total 0.7 0.0 - 1.0 mg/dL [facility] Aspartate Amino Transferase 33(H) 5 - 31 U/L [facility] Alanine Aminotransferase 35(H) 0 - 31 U/L [facility] Total Protein 7.5 6.5 - 8.0 g/dL [facility] Albumin Level 4.6 3.5 - 5.0 g/dL [facility] Alkaline Phosphatase 86 39 - 117 U/L [facility] 10/21/2024 7:29 AM EDT 10/21/2024 7:29 AM EDT us Generic External Data Provider LAB BLOOD ORDERAB LES Final Result [facility] [address] [place] [phone] [phone] * (ABNORMAL) POCT HGB A1C (09/01/2024 1:50 PM EDT) Pathologist [facility] Hemoglobin A1C 7.2(A) 4.0 - 6.0 % QC Media Lot # [id number] Lot# Expiration Date [id number] Blood 09/01/2024 1:50 PM EDT Nate Mcdonald MD POINT OF CARE TEST EN TER/EDIT ORDERABLES Final Result * POCT Glucose (09/01/2024 1:46 PM EDT) Glucose Blood, POC 112 60 - 200 mg/dL QC Media Lot # [id number] Lot# Expiration Date Blood Capillary blood specimen / Unknown 09/01/2024 1:46 PM EDT Nate Mcdonald MD POINT OF CARE TEST EN TER/EDIT ORDERABLES Final Result * Pap Smear (04/07/2024 9:27 AM EST) Swab Cervix uteri structure / Unknown 04/07/2024 9:27 AM EST 04/08/2024 6:30 AM EST Narrative [facility] - 04/15/2024 11:49 AM EST ----- ------- Name: Eunice Romano Age/Sex: 64/F : 1960 Unit#: [id number] Attend Dr: Re04/07/24 Status: PRE REF Location: [facility] Disch: ----- ------- SPEC : [id number] RECD: 04/08/24 STATUS: NADEEM STILES NUM: [id number] MARGA: 04/07/[address] [facility] [address]: MARAL BOYER CNM ENTERED: 04/08/24 SP TYPE: Pap Smr OTHR DR: ORDERED: Pap Smear Interpretation Satisfactory for evaluation. Negative for intraepithelial lesion or malignancy. HPV High Risk: Negative HPV Genotyping 16: Negative HPV Genotyping 18: Negative Clinical Information LMP: Previous PAP test: 2018 NIL/HPV negative Other surgery: Other history: Material Received ThinPrep-Cervical ----- ------- Signed (signature on file) RICKIE Harry (ASCP) 04/15/24 1149 ----- ------- END OF REPORT us Maral CARSON LAB CYTOLOGY ORDERABLES F inal Result [facility] [address] [place] [phone] * HPV DNA, Low/High Risk (04/07/2024 12:00 AM EST) HPV High Risk Negative Negative [facility] HPV Genotype 16 Negative Negative [facility] HPV Genotype 18 Negative Negative [facility] Comment:HPV testing performe d at [facility] (CLIA#[id number]), [address] [place] [address].Testing for HPV was performed using the Eulalia SANDY 6800system. The presence of HPV in the female genital tract isassociated with a number of diseases, including cervicalcarcinoma. The HPV DNA high risk pool tests for HPV 31, 33,35, 39, 45, 51, 52, 56, 58, 59, 66 and 68. The testing forHPV 16 and 18 genotypes has also been performed. A positiveresult indicates detection of nucleic acid sequences fromone or more subtypes, whereas a negative result indicatessuch sequences were not detected. 04/07/2024 04/08/2024 7:1 6 AM EST us Maral Boyer [facility] LAB BLOOD ORDERABLES Zunilda edwards Result [facility] [address] [place] [phone] * Cologuard?? colon cancer screening (12/07/2023 8:45 AM EDT) Cologuard Result Negative Negative 12/12/19 24 10:54 AM EDT [facility] (CLIA #:[id number]) Comment: NEGATIVE TEST RESULT. A negative Cologuard result indicates a low likelihood that a colorectal cancer (CRC) or advanced adenoma (adenomatous polyps with more advanced pre-malignant features) is present. The chance that a person with a negative Cologuard test has a colorectal cancer is less than 1 in 1500 (negative predictive value >99.9%) or has an advanced adenoma is less than 5.3% (negative predictive value 94.7%). These data are based on a prospective cross-sectional study of 10,000 individuals at average risk for colorectal cancer who were screened with both Cologuard and colonoscopy. (Roxanne Ingram al, N Engl J Med 2014;370(14):7052-6089) The normal value (reference range) for this assay is negative. COLOGUARD RE-SCREENING RECOMMENDATION: Periodic colorectal cancer screening is an important part of preventive healthcare for asymptomatic individuals at average risk for colorectal cancer. Following a negative Cologuard result, the [place] Cancer Society and U.S. Multi-Society Task Force screening guidelines recommend a Cologuard re-screening interval of 3 years. References: [place] [employer] Guideline for Colorectal Cancer Screening: https://www.cancer.org/cancer/sztgt-vbsnlm-vspagm/zdcqkmzes-sueljywhn-rubnqlc/ac s-rec ommendations.html.; [place] DK, Chris SHARMA, Luz Maria BlakeK, Colorectal Cancer Screening: Recommendations for Physicians and Patients from the U.S. Multi-Society Task Force on Colorectal Cancer Screening , Am J Gastroenterology 2017; 112:9974-0543. TEST DESCRIPTION: Composite algorithmic analysis of stool DNA-biomarkers with hemoglobin immunoassay. Quantitative values of individual biomarkers are not [...] (Roxanne Ingram al, N Engl J Med 2014;370(14):8098-1500.) Cologuard may produce a false negative or false positive result (no colorectal cancer or precancerous polyp present at colonoscopy follow up). A negative Cologuard test result does not guarantee the absence of CRC or advanced adenoma (pre-cancer). The current Cologuard screening interval is every 3 years. ([place] Cancer Society and U.S. Multi-Society Task Force). Cologuard performance data in a 10,000 patient pivotal study using colonoscopy as the reference method can be accessed at the following location: www.[facility]/results. Additional description of the Cologuard test process, warnings and precautions can be found at www.cologuard.com. Stool specimen (specimen) 12/07/2023 8:45 AM EDT 12/08/2023 10:45 AM EDT Nate Mcdonald MD LAB MOLECULAR DIAGNOS TICS ORDERABLES Final Result [facility] (CLIA #:[id number]) [place] [address], * BI Mammogram Screening Tomosynthesis Bilateral (09/14/2023 11:03 AM EDT) Anatomical Region Laterality Modality Breast Bilateral Mammography 09/14/2023 11:0 3 AM EDT Narrative 10/11/2023 3:25 PM EDT [facility] [address] [place] [address] Mammography Report Signed Patient: Eunice Romano MR# : [id number] : 1960 Acct:[id number] Age/Sex: 63 / F ADM Date: 09/14/23 Loc: [facility]KKI Attending Dr: Nate Dominguez MD Ordering Physician: Nate Dominguez MD Resu lts: 2Benign Findings Date of Service: 09/14/23 Follow Up: 1 Year From Orig inal Mammogram Procedure(s): MM tomosynthesis screening BI Accession Number(s): [id number] cc: Nate Dominguez MD EXAMINATION: MM SCREENING [...] in OV> 10/11/23 1522 DD/ 1103 TD/TT: Coal Screener: Procedure Note Donotuseinterpreter, Image - 10/11/2023 [facility] [address] [place] [address] Mammography Report Signed Patient: Eunice Romano DMR# : [id number] : 1960cct:[id number] Age/Sex: 63 / FADM Date: 09/14/23 Loc: NIKKI Attending Dr: Nate Dominguez MD Ordering Physician: Nate Dominguez MDResu lts: 2Benign Findings Date of Service: 09/14/23Follow Up: 1 Year From Orig ina Mammogram Procedure(s): MM tomosynthesis screening BI Accession Number(s): [id number] cc: Nate Dominguez MD EXAMINATION: MM SCREENING [...] in OV> 10/11/23 1522 DD/ 1103 TD/TT: Coal Screener: Nate Mcdonald MD IMG BI PROCEDURES Fin al Result * Albumin, Random Urine W/Creatinine (05/05/2023 12:00 AM EST) Creatinine, Urine 93.58 mg/dL [facility] Microalbumin Urine 6.0 mg/L [facility] Microalbum Creatinine Ratio Ur 6.4 <30 ug/mg cr [facility] Comment:Albumin/Creatinine R atio Reference Ranges: Normal: < 30 ug/mg creatinine Microalbuminuria: 30 - 300 ug/mg creatinineClinical Albuminuria: > 300 ug/mg creatinine Urine (Urine, Random) 05/05/2023 05/05/2023 Nate Mcdonald MD LAB URINE ORDERABLES Final Result [facility] [address] [place] [phone] * Hepatitis C Antibody with Reflex to HCV, RNA, Quantitative, Real-Time PCR (04/10/2022 8:14 AM EST) Hepatitis C Antibody NON-REACT JOHANN NON-REACT JOHANN [employer] [place] Daz 3dt Index <0.02 <1.00 [employer] [place] [facility] Comment: HCV antibody was non-reactive. There is no laboratory evidence of HCV infection. In most cases, no further action is required. However, if recent HCV exposure is suspected, a test for HCV RNA (test code 92768) is suggested. For additional information please refer to http://[employer]/faq/KFI90a9 (This link is being provided for informational/ educational purposes only.) Blood Venous blood specimen / Unknown 04/10/2022 8:14 AM EST 04/10/2022 8:14 AM EST Narrative [facility] - 04/10/2022 8:51 PM EST FASTING:YES FASTING: YES Nate Mcdonald MD LAB BLOOD ORDERABLES Final Result [facility] [address] [facility] [place] [address] [employer] [place] [employer] [address] [facility], ([address]) [place] [address] * HIV-1/2 Antigen and Antibodies, Fourth Generation, with Reflexes (04/10/2022 8:14 AM EST) HIV Antigen/Antibody, 4th Generation NON-REAC TIVE NON-REAC TIVE [employer] [place] [employer] Comment: HIV-1 antigen and HIV-1/HIV-2 antibodies were not detected. There is no laboratory evidence of HIV infection. PLEASE NOTE: This information has been disclosed to you from records whose confidentiality may be protected by state law. If your state requires such protection, then the state law prohibits you from making any further disclosure of the information without the specific written consent of the person to whom it pertains, or as otherwise permitted by law. A general authorization for the release of medical or other information is NOT sufficient for this purpose. For additional information please refer to http://[employer]/faq/VUW601 (This link is being provided for informational/ educational purposes only.) The performance of this assay has not been clinically validated in patients less than 2 years old. Blood Venous blood specimen / Unknown 04/10/2022 8:14 AM EST 04/10/2022 8:14 AM EST Narrative [facility] - 04/10/2022 8:51 PM EST FASTING:YES FASTING: YES Nate Mcdonald MD LAB BLOOD ORDERABLES Final Result [facility] [address] [facility] [place] [address] [employer] [facility] [address] [facility], ([address]) [place] [address] * POCT Fecal Immunochemical Test (10/18/2021 3:01 PM EDT) Fecal Immunochemical Test Nonreactive Stool Rectal contents / Unknown 10/18/2021 3:01 PM EDT Lena Guo - 10/18/2021 3:01 PM EDT Negative IFOBT card Historical Provider POINT OF CARE TEST ENTER/ EDIT ORDERABLES Final Result from Last 3 Months or Most Recently Relevant to Health Maintenance Insurance [facility] STANDARD [address] [place] [address] Care Teams Insulation Cupola Charger Relationship Specialty Start Date End Date Nate Castaneda MD [address] [place] [phone] PCP - General Internal Medicine 12/15/13
--- OUTSIDE RECORDS SUMMARY | 2024-11-02 11:49 | XMS_ITS | Encounter Summary ---
Author Organization [employer] Address [address] [facility] 7t [place] [address] Care Team Providers Care Coke Drawer Name Role Phone Nate Castaneda MD Primary Care Provide r Reason for Visit * Reason Onset Date Comments Med Refill 08/10/2024 Encounter Details Date Type Department Care Team ([facility] st Contact Info) Description 08/10/2024 Telephone [facility] [address] [place] [address] Nate Castaneda MD [address] [place], [place] [phone] Med Refill Social History Tobacco Use Types [...] Miscellaneous Notes * Telephone Encounter - Kemal Mayo - 08/10/2024 9:05 AM EDT TC from pt requesting medication refill. Medications needing refill: traMADol (Ultram) 50 MG tablet To be sent to: [facility]/pharmacy #[address] [place] [address] documented in this encounter Plan of Treatment Upcoming Encounters Date Type Department Care Team (Late st Contact Info) Description 11/15/2024 1:30 PM EDT Office Visit [facility] [address] [place] [phone] Nate Castaneda MD [address] [place] [phone] 11/18/2024 11:30 AM EDT Clinical Support [facility] [address] [place] [phone] Angela Youssef RN [address] [place], [place] [phone] documented as of this encounter Visit Diagnoses Not on filedocumented in this encounter Additional Health Concerns Assessment Noted Time PHQ-9 Depression Total Score: 5 06/03/19 25 10:03 AM EDT documented as of this encounter Care Teams Coke Drawer Relationship Specialty Start Date End Date Nate Castaneda MD [address] [place] [address] PCP - General Internal Medicine 12/15/13 documented as of this encounter
--- OUTSIDE RECORDS SUMMARY | 2024-11-02 11:49 | XMS_ITS | Encounter Summary ---
Author Organization [employer] Address [address] [facility] 7[address] [place] [address] Care Team Providers Care Server Administrator Name Role Phone Nate Castaneda MD Primary Care Provide r Reason for Visit * Reason Onset Date Comments Reschedule 06/02/2023 Encounter Details Date Type Department Care Team ([facility] Contact Info) Description 06/02/2023 Telephone [facility] [address] [place] [address] Nate Castaneda MD [address] [place] [address] Reschedule Social History Tobacco Use Types Packs/Day [...] AM EDT Tc from pt requesting r/s JACK TAMP OPERATOR appt. documented in this encounter Plan of Treatment Upcoming Encounters Date Type Department Care Team (Late st Contact Info) Description 11/15/2024 1:30 PM EDT Office Visit [facility] [address] [place] [phone] Nate Castaneda MD [address] [place] [phone] 11/18/2024 11:30 AM EDT Clinical Support [facility] [address] [place] [phone] Angela Youssef RN [address] [place] [address] documented as of this encounter Visit Diagnoses Not on filedocumented in this encounter Additional Health Concerns Assessment Noted Time PHQ-9 Depression Total Score: 5 05/05/19 24 11:43 AM EST documented as of this encounter Care Teams Server Administrator Relationship Specialty Start Date End Date Nate Castaneda MD [address] [place] [phone] PCP - General Internal Medicine 12/15/13 documented as of this encounter
--- OUTSIDE RECORDS SUMMARY | 2024-11-02 11:49 | XMS_ITS | Encounter Summary ---
Author Organization [employer] Address [address] [facility] 7t [place] [address] Care Team Providers Care Residential Insurance Inspector Name Role Phone Nate Castaneda MD Primary Care Provide r Reason for Visit * Reason Onset Date Comments Med Refill 08/11/2024 Encounter Details Date Type Department Care Team ([facility] st Contact Info) Description 08/11/2024 Telephone [facility] [address] [place] [address] Nate Castaneda MD [address] [place], [place] [phone] Med Refill Social History Tobacco Use Types [...] Telephone Encounter - Jaylene Ambrose LPN - 08/11/2024 2:01 PM EDT Medication pended to PCP for approval. * Telephone Encounter - Adali Olivas - 08/11/2024 1:54 PM EDT TC from pt requesting medication refill. Medications needing refill : - insulin glargine (Lantus SoloStar) 100 UNIT/ML pen - FREESTYLE LITE test strip To be sent to: - [facility]/pharmacy #[id number] - [place], [place] - [address] [place] [address] documented in this encounter Plan of Treatment Upcoming Encounters Date Type Department Care Team (Late st Contact Info) Description 11/15/2024 1:30 PM EDT Office Visit [facility] [address] [place] [phone] Nate Castaneda MD [address] [place] [phone] 11/18/2024 11:30 AM EDT Clinical Support [facility] [address] [place] [phone] Angela Youssef, AMY [address] [place] [address] documented as of this encounter Visit Diagnoses Not on filedocumented in this encounter Additional Health Concerns Assessment Noted Time PHQ-9 Depression Total Score: 5 06/03/19 25 10:03 AM EDT documented as of this encounter Care Teams Residential Insurance Inspector Relationship Specialty Start Date End Date Nate Castaneda MD [address] [place] [address] PCP - General Internal Medicine 12/15/13 documented as of this encounter
--- OUTSIDE RECORDS SUMMARY | 2024-11-02 11:49 | XMS_ITS | Encounter Summary ---
Author Organization [employer] Address [address] [place] [address] Care Team Providers Care Superintendent Power Name Role Phone Nate Castaneda MD Primary Care Provide r Reason for Visit * Reason Onset Date Comments Med Refill 01/12/2023 Encounter Details Date Type Department Care Team ([facility] st Contact Info) Description 01/12/2023 Telephone [facility] [address], [place] [phone] Nate Castaneda MD [address], [place] [phone] Med Refill Social History Tobacco Use Types [...] 11/15/2024 1:30 PM EDT Office Visit [facility] [address] [place] [phone] Nate Castaneda MD [address] [place] [phone] 11/18/2024 11:30 AM EDT Clinical Support [address] [phone] Angela Youssef, RN [address] [place] [address] documented as of this encounter Visit Diagnoses Not on filedocumented in this encounter Additional Health Concerns Assessment Noted Time PHQ-9 Depression Total Score: 0 04/03/19 23 11:21 AM EST documented as of this encounter Care Teams Superintendent Power Relationship Specialty Start Date End Date Nate Castaneda MD [address] [place] [phone] PCP - General Internal Medicine 12/15/13 documented as of this encounter
== END 2024-11-02 10:55 | disposition home or self-care (01) ==
LOC: HO.MAMMO 10:54
PROVIDERS: PCP Internal Medicine; Visit Provider Internal Medicine
DX: Z12.31 Encounter for screening mammogram for malignant neoplasm of breast (principal)
CPT/HCPCS: 77063; 77067

== ENCOUNTER → 2024-11-02 11:45 | Outpatient (BNV) | payer MEDICAID, SELFPAY | PROVIDERS: PCP Internal Medicine; Visit Provider Radiology Body Imaging | DX: Z12.31 Encounter for screening mammogram for malignant neoplasm of breast (principal) | CPT/HCPCS: 77063; 77067 ==

== ENCOUNTER 2024-11-09 08:01 | Outpatient (REF) | payer MEDICAID, SELFPAY ==
[2024-11-09 12:03] LABS: Anion Gap 13 (12-20); Blood Urea Nitrogen 10 mg/dL (9-16); Calcium 9.4 mg/dL (8.4-10.2); Carbon Dioxide 30 mmol/L (22-29); Chloride 107 mmol/L (96-108); Cholesterol 118 mg/dL (<200); Estimated Glomerular Filt Rate > 60; HDL Cholesterol 31 mg/dL (>40); Potassium 4.6 mmol/L (3.3-5.1); Sodium 145 mmol/L (135-145); Triglycerides 85 mg/dL (<150)
== END 2024-11-09 08:02 | disposition home or self-care (01) ==
LOC: HO.HHCL 08:01
PROVIDERS: PCP Internal Medicine; Visit Provider Internal Medicine
DX: E11.69 Type 2 diabetes mellitus with other specified complication (principal); E66.9 Obesity, unspecified; I10 Essential (primary) hypertension
CPT/HCPCS: 36415; 80048; 80061

== ENCOUNTER 2025-01-23 15:44 | Emergency (ER) | payer MEDICAID, SELFPAY ==
[2025-01-23 16:22] VITALS: BP 158/71; PULSE 100; RESP 18; TEMP 36.1; O2SAT 97; BMI 36.9
--- NOTE | 2025-01-23 16:26 | ECG_ITS ---
Test Reason : TACHYCARDIA Blood Pressure : */* mmHG Vent. Rate : 88 BPM Atrial Rate : 88 BPM P-R Int : 146 ms QRS Dur : 80 ms QT Int : 372 ms P-R-T Axes : 66 -9 28 degrees QTcB Int : 450 ms Normal sinus rhythm Normal ECG When compared with ECG of 11-Feb-2019 23:10, No significant change was found Referred By: Miki Nelson Electronically Signed By: COLE MARTIN
[2025-01-23 16:43] LABS: MANUAL DIFF FLAG NO
[2025-01-23 16:45] LABS: Hematocrit 44.1 % (37.0-47.0); Hemoglobin 14.8 g/dl (12.0-16.0); Imm Gran Abs Auto 0.03 X10*3/uL (0.00-0.03); Imm Gran Pct Auto 0.3 % (0.0-0.4); Lymphocytes Absolute Auto 2.4 X10*3/uL (1.2-4.9); Mean Corpuscular HGB Conc 33.6 g/dl (31.0-35.0); Mean Corpuscular Hemoglobin 30.5 pg (27.0-33.0); Mean Corpuscular Volume 90.9 fL (80.0-98.0); NRBC Abs Auto 0.000 X10*3/uL (0.0-0.012); NRBC Pct Auto 0.0 /100WBC (0.0-0.2); Platelet Count 244 X10*3/uL (160-400); Red Blood Count 4.85 X10*6/uL (4.20-5.50); White Blood Count 11.7 X10*3/uL (4.8-10.8)
--- NOTE | 2025-01-23 16:45 | ED.GENADULT ---
HPI - General Adult General Chief complaint: General Medical Stated complaint: High Blood Pressure Time Seen by Provider: 01/23/25 20:05 Source: patient Mode of arrival: ambulatory Limitations: language barrier ([facility] services utilized) History of Present Illness ED Provider: Siva GRANDE HPI narrative: The patient is a 64-year-old female with a history of hyperlipidemia, hypertension, diabetes, morbid obesity, paroxysmal atrial fibrillation, and aortic stenosis, presenting to the ED for evaluation of elevated blood pressure. Patient reports she was feeling a ?odd sensation? in the upper sternum earlier this evening, prompting her to take her blood pressure and pulse. The patient reports blood pressure was elevated at 153/77, prompting ED evaluation. The patient did not contact her PCP or non licensed nuclear equipment operator regarding the high blood pressure prior to coming to the ED. The patient reports since arrival in the ED her odd sensation in the sternum has essentially resolved. The patient denies any associated diaphoresis, nausea, vomiting, headache, fever/chills, cough, shortness of breath, pleurisy, abdominal pain, recent sick contacts, or recent trauma. The patient reports she has been compliant with her regular antihypertensive medications, denies any new or recently changed medications. Related Data Home Medications ?Medication ?Instructions ?Recorded ?Confirmed cetirizine 10 mg capsule (Zyrtec) 10 mg PO DAILY 12/21/19 10/18/24 fluoxetine 20 mg capsule 20 mg PO DAILY 12/21/19 10/18/24 metformin 1,000 mg tablet 1,000 mg PO BID 12/21/19 10/18/24 metoprolol succinate 50 mg 50 mg PO DAILY 12/21/19 10/18/24 tablet,extended release 24 hr (Toprol XL) tramadol 50 mg tablet 50 mg PO BID PRN 12/21/19 10/18/24 losartan 50 mg tablet 50 mg PO QAM 04/09/21 10/18/24 dulaglutide 0.75 mg/0.5 mL 0.75 mg subcut QWEEK 07/14/22 10/18/24 subcutaneous pen injector (Trulicity) insulin glargine 100 unit/mL (3 50 unit subcut QAM 07/14/22 10/18/24 mL) subcutaneous pen (Lantus Solostar U-100 Insulin) Previous Rx's ?Medication ?Instructions ?Recorded clotrimazole 1 % topical cream 1 appl topical BID #28.4 grams 07/02/21 atorvastatin 40 mg tablet 40 mg PO DAILY #90 tabs 09/12/21 simethicone 80 mg chewable tablet 80 mg PO BID-QID PRN abdominal 10/18/24 (Gas Relief (simethicone)) distention #90 tabs cyanocobalamin (vitamin B-12) 1,000 mcg PO DAILY #90 tabs 11/08/24 1,000 mcg tablet thiamine HCl (vitamin B1) 100 mg 100 mg PO DAILY #90 tabs 11/08/24 tablet Allergies Allergy/AdvReac Type Severity Reaction Status Date / Time glipizide (GLIPIZIDE) Allergy Unknown HIVES Verified 01/23/25 16:24 lisinopril Allergy Unknown hives Verified 01/23/25 16:24 Review of Systems Review of Systems: Yes all other systems are reviewed and are negative [facility] Past Medical History Medical History Panniculitis Tubal ligation evaluation GERD (gastroesophageal reflux disease) Atrial fib/flutter, transient Obesity Hyperlipidemia Depression Hypertension Type II dens fracture of second cervical vertebra Tongue disorder Surgical History Hx of oral surgery History of carpal tunnel surgery Previous section S/P laparoscopic sleeve gastrectomy Family History Family History Mother No problems noted. Father No problems noted. Social History Social History Alcohol intake: never Patient Tobacco Use Status: Former Tobacco user Smoked in Last 30 Days: No Use of substances other than those prescribed or required for medical reasons: No Advance Directives: No Advance Directives Information Provided: No Do you have a plan to hurt others: No Plan Patient : No Physical Exam ED Vital Signs: Vital Signs - 24 hr 01/23/25 16:22 01/23/25 21:19 01/23/25 21:24 Temperature 97 F 97.9 F Pulse Rate 100 80 79 Respiratory Rate 18 18 Blood Pressure 158/71 H 131/70 131/70 Pulse Oximetry 97 Oxygen Delivery Method Room Air Room Air 01/23/25 21:24 Temperature 97.9 F Pulse Rate 79 Respiratory Rate 18 Blood Pressure 131/70 Pulse Oximetry Oxygen Delivery Method Room Air BMI result Body Mass Index 36.9 CONSTITUTIONAL: The patient appears non-toxic, well nourished and in no acute distress. Vital signs as documented. HEAD: Atraumatic, normocephalic. EYES: EOMs grossly intact, pupils equal, conjunctiva clear, no exudate. ENT: Nares patent, no discharge. Airway patent, no audible stridor, visible mucosa is pink and moist without noted lesions. NECK: Trachea is midline, no obvious masses or gross abnormalities. CHEST: Symmetric movement, normal appearance. LUNGS: LS present and CTAB, no w/r/r. Non-labored work of breathing. CARDIAC: Regular Rhythm, S1/S2 appreciated, there is a grade 2/6 systolic murmur heard best over the left sternal border, consistent with known history of aortic stenosis, no other murmurs, rubs or gallops. ABDOMEN: Abdomen soft and non-tender x4 quadrants, no palpable masses or organomegaly. : Deferred. EXTREMITIES: Normal tone, moves all extremities spontaneously without reported pain. No obvious acute injury or deformity noted. NEURO: Alert and oriented x3, CN II-XII appear grossly intact. Cerebellar Functioning grossly intact. No obvious sensory or motor deficits. Speech clear and appropriate. PSYCH: normal affect, appropriate eye contact, fluid speech, with appropriate response to questioning. No reported suicidality or homicidality. SKIN: Warm, dry, color appropriate, normal turgor. No rashes noted. Course Course Course Narrative: RME: 63-year-old female presents ED for evaluation of elevated blood pressure and tachycardia. Patient denies any neuro deficits. lab, EKG ordered. NIH score Medications Administered Discontinued Medications Generic Name Dose Route Start Last Admin Trade Name Freq PRN Reason Stop Dose Admin Metoprolol Succinate 50 mg 01/23/25 20:43 01/23/25 21:19 Metoprolol Succinate Er 50 Mg Tab.Er.24h PO 01/23/25 20:44 50 mg ONCE ONE Administration Protocol Medical Decision Making Medical Decision Making MDM Narrative: 8:33 PM 01/23/2025 (Jaya GRANDE): The patient is a 64-year-old female with a history of hyperlipidemia, hypertension, diabetes, morbid obesity, paroxysmal atrial fibrillation, and aortic stenosis, presenting to the ED for evaluation of elevated blood pressure. Patient reports she was feeling a ?odd sensation? in the upper sternum earlier this evening, prompting her to take her blood pressure and pulse. The patient reports blood pressure was elevated at 153/77, prompting ED evaluation. The patient did not contact her PCP or non licensed nuclear equipment operator regarding the high blood pressure prior to coming to the ED. The patient reports since arrival in the ED her odd sensation in the sternum has essentially resolved. The patient denies any associated diaphoresis, nausea, vomiting, headache, fever/chills, cough, shortness of breath, pleurisy, abdominal pain, recent sick contacts, or recent trauma. The patient reports she has been compliant with her regular antihypertensive medications, denies any new or recently changed medications. The patient's exam is reassuring, patient has a grade 2/6 murmur consistent with known history of aortic stenosis, no adventitious lung sounds, neuro exam is intact, no other acute findings. The patient's laboratory evaluation shows no significant leukocytosis, anemia, electrolyte abnormality, or AMADOU. The patient's EKG is nonischemic, initial troponin is negative. The patient will be evaluated with a repeat troponin, and treated with her nighttime dose of metoprolol. Pending no delta increase in troponin patient will be discharged to follow up with PCP and non licensed nuclear equipment operator for additional management for blood pressure. Patient educated on reasons to return to the ED. 9:11 PM 01/23/2025 (Jaya GRANDE): Repeat troponin shows no concerning delta increase. Patient will be discharged to follow up with PCP and Cardiology as described above. Admission/Observation Consideration of admission/observation: Escalation of care including admission/observation considered Lab Data MDM Lab Attestation statement: I reviewed the patient's lab results. 01/23/25 16:39 01/23/25 16:39 Labs: Lab Results 01/23/25 01/23/25 Range/Units 16:39 20:31 WBC 11.7 H (4.8-10.8) X10*3/uL RBC 4.85 (4.20-5.50) X10*6/uL Hgb 14.8 (12.0-16.0) g/dl Hct 44.1 (37.0-47.0) % MCV 90.9 (80.0-98.0) fL MCH 30.5 (27.0-33.0) pg MCHC 33.6 (31.0-35.0) g/dl RDW 13.2 (11.0-16.0) % Plt Count 244 (160-400) X10*3/uL MPV 11.9 (9.4-12.3) fL Immature Gran % (Auto) 0.3 (0.0-0.4) % Neut % (Auto) 72.4 (45-73) % Lymph % (Auto) 20.5 (20-40) % Pine % (Auto) 5.9 (2-11) % Eos % (Auto) 0.6 (0-4) % Baso % (Auto) 0.3 (0-2) % Lymph # (Auto) 2.4 (1.2-4.9) X10*3/uL Pine # (Auto) 0.7 (0.1-1.2) X10*3/uL Eos # (Auto) 0.1 (0.0-0.4) X10*3/uL Baso # (Auto) 0.0 (0.0-0.2) X10*3/uL Abs Immat Gran (auto) 0.03 (0.00-0.03) X10*3/uL Absolute Neuts (auto) 8.5 H (2.0-8.3) x10*3/uL Absolute Nucleated RBC 0.000 (0.0-0.012) X10*3/uL Nucleated RBC % (auto) 0.0 (0.0-0.2) /100WBC PT 11.4 (11.2-13.5) SEC INR 0.9 (0.9-1.1) APTT 29.2 (26.7-34.1) SEC Sodium 143 (135-145) mmol/L Potassium 4.3 (3.3-5.1) mmol/L Chloride 105 (96-108) mmol/L Carbon Dioxide 25 (22-29) mmol/L Anion Gap 17 (12-20) BUN 12 (9-16) mg/dL Creatinine 0.73 (0.5-1.4) mg/dL Estim Creat Clear Calc 76.7 Estimated GFR > 60 Random Glucose 134 H (60-115) mg/dL Calcium 10.3 H D (8.4-10.2) mg/dL Total Bilirubin 0.6 (0.0-1.0) mg/dL AST 36 H (5-31) U/L ALT 38 H (0-31) U/L Alkaline Phosphatase 87 (39-117) U/L Troponin I High Sens 2.7 3.8 (<3.5-17.0) ng/L Total Protein 7.8 (6.5-8.0) g/dL Albumin 4.8 (3.5-5.0) g/dL Independent Interpretation I performed an independent interpretation of an: EKG (EKG shows sinus rhythm with a rate of 88, no evidence of acute ischemia, no ST elevation, no ectopy. QTC 450. Compared to previous on 02/11/2019 there are no significant morphology changes. ) Discharge Plan Discharge Clinical Impression: Hypertension Qualifiers: Hypertension type: unspecified Qualified Code(s): I10 - Essential (primary) hypertension Patient Disposition: Home, Self-Care Instructions: Hypertensive Crisis (ED), Hypertension (ED) Additional Instructions: Jahaira por elegir el Departamento de Emergencias del [facility] para bagley atenci?n hoy. Afortunadamente, los resultados de heriberto an?lisis de laboratorio, electrocardiograma y examen f?sico de hoy son tranquilizadores. No se detect? da?o en ?rganos vitales chely el coraz?n, los ri?ones o el cerebro chely consecuencia de bagley presi?n arterial elevada. En quita momento, no es necesario bagley ingreso al hospital ni bagley permanencia en observaci?n en el Departamento de Emergencias, y puede ser dado de daniella. Por favor, contin?e tomando bagley medicamento para la presi?n arterial seg?n lo prescrito. Por favor, programe no nataliya de seguimiento con bagley cardi?logo y bagley m?dico de cabecera para no reevaluaci?n, el manejo adicional de heriberto s?ntomas y la continuidad de bagley atenci?n preventiva. Si no tiene un m?dico de cabecera, llame al [facility] al [phone] para que le asignen bjorn. Mientras espera, puede llamar a nuestra Cl?johnathan de Atenci?n sin Nataliya Previa al [phone] para consultas que no jeanie de emergencia. Por favor, regrese al servicio de urgencias si presenta un cambio repentino o grave en heriberto s?ntomas, incluyendo presi?n arterial persistentemente elevada (superior a 180/120), o presi?n arterial superior a 180/120 acompa?ada de dolor de pecho, dolor de christine o dificultad para hablar o caminar. Tambi?n regrese a urgencias si presenta fiebre superior a 38 ?C que no mejora con paracetamol o ibuprofeno, v?mitos recurrentes o cualquier otro s?ntoma o preocupaci?n nueva o que empeore. Thank you for choosing [facility] for your care today. Thankfully your laboratory evaluation, EKG, and exam today are all reassuring. There was no evidence of any end-organ damage to your heart, kidneys, or brain as a result of your elevated blood pressure. At this time there is no indication for admission to the hospital or continued ED observation, and it is safe to discharge you home. Please continue taking your blood pressure medication as prescribed. Please follow up with your non licensed nuclear equipment operator and primary care physician for re-evaluation, additional management of your symptoms, and continued preventative care. If you do not have a primary care physician, please call the [facility] at [phone] to establish a new primary care physician. While waiting to establish your new primary care physician, you can call our [facility] at [phone] for non-emergency needs. Please return to the emergency department if you develop a severe or sudden change in your symptoms, including a persistently elevated blood pressure over 180/120, or a blood pressure over 180/120 with associated chest pain, headache, or difficulty speaking or walking. Please also return to the ED if you develop a fever over 100.4 that does not improve with Tylenol or Ibuprofen, recurrent vomiting, or any other new or worsening symptoms or concerns. Prescriptions: No Action atorvastatin 40 mg tablet 40 mg PO DAILY Qty: 90 3RF cyanocobalamin (vitamin B-12) 1,000 mcg tablet 1,000 mcg PO DAILY Qty: 90 0RF thiamine HCl (vitamin B1) 100 mg tablet 100 mg PO DAILY Qty: 90 3RF metoprolol succinate [Toprol XL] 50 mg tablet extended release 24 hr 50 mg PO DAILY tramadol 50 mg tablet 50 mg PO BID PRN Zyrtec 10 mg capsule 10 mg PO DAILY fluoxetine 20 mg capsule 20 mg PO DAILY metformin 1,000 mg tablet 1,000 mg PO BID Lantus Solostar U-100 Insulin 100 unit/mL (3 mL) insulin pen 50 unit subcut QAM clotrimazole 1 % cream 1 appl topical BID Qty: 28.4 6RF losartan 50 mg tablet 50 mg PO QAM Trulicity 0.75 mg/0.5 mL pen injector 0.75 mg subcut QWEEK simethicone [Gas Relief (simethicone)] 80 mg tablet,chewable 80 mg PO BID-QID PRN (Reason: abdominal distention) Qty: 90 3RF Referrals: Nate Dominguez MD [Primary Care Provider, Medical] Clinical Impression: Hypertension Interventions: ED Discharge Assessment Last Done: 01/23/25 21:24 Print Language: Slovenian
[2025-01-23 16:50] LABS: INTERNATIONAL NORM RATIO 0.9 (0.9-1.1); Prothrombin Time 11.4 SEC (11.2-13.5)
[2025-01-23 16:53] LABS: Partial Thromboplastin Time 29.2 SEC (26.7-34.1)
[2025-01-23 17:08] LABS: Alanine Aminotransferase 38 U/L (0-31); Albumin Level 4.8 g/dL (3.5-5.0); Alkaline Phosphatase 87 U/L (39-117); Anion Gap 17 (12-20); Aspartate Amino Transferase 36 U/L (5-31); Blood Urea Nitrogen 12 mg/dL (9-16); Calcium 10.3 mg/dL (8.4-10.2); Carbon Dioxide 25 mmol/L (22-29); Chloride 105 mmol/L (96-108); Creatinine Clr Calc Pharmacy 76.7; Estimated Glomerular Filt Rate > 60; Potassium 4.3 mmol/L (3.3-5.1); Sodium 143 mmol/L (135-145); Total Protein 7.8 g/dL (6.5-8.0)
[2025-01-23 17:13] LABS: Troponin-I High Sensitivity 2.7 ng/L (<3.5-17.0)
[2025-01-23 20:59] LABS: Troponin-I High Sensitivity 3.8 ng/L (<3.5-17.0)
[2025-01-23 21:19] VITALS: BP 131/70; PULSE 80
[2025-01-23] MEDS: Metoprolol Succinate ER 50 MG TAB.ER.24H PO (21:19)
[2025-01-23 21:24] VITALS: BP 131/70; PULSE 79; RESP 18; TEMP 36.6
== END 2025-01-23 21:29 | disposition home or self-care (01) ==
PROVIDERS: Physician Assistant; Emergency Provider Emergency Medicine; PCP Internal Medicine
DX: R00.0 Tachycardia, unspecified (principal); I10 Essential (primary) hypertension; E78.5 Hyperlipidemia, unspecified; E11.9 Type 2 diabetes mellitus without complications; E66.01 Morbid (severe) obesity due to excess calories; I48.0 Paroxysmal atrial fibrillation; Z79.899 Other long term (current) drug therapy; Z79.4 Long term (current) use of insulin
CPT/HCPCS: 36415; 80053; 84484; 85025; 85610; 85730; 93005; 99283; 99284

== ENCOUNTER → 2025-01-23 16:26 | Outpatient (BNV) | payer MEDICAID, SELFPAY | PROVIDERS: Emergency Provider Emergency Medicine; PCP Internal Medicine; Visit Provider Internal Medicine | DX: R00.0 Tachycardia, unspecified (principal) | CPT/HCPCS: 93010 ==